=== PATIENT | female | born 1955 | race Caucasian/White ===

== ENCOUNTER 2017-04-20 21:21 | Observation (INO) | payer MEDICARE, MEDICAID ==
[2017-04-20 21:59] LABS: #Basophils 0.1 thou/uL (0.0-0.2); #Eosinphils 0.4 thou/uL (0.0-0.7); #Lymphocytes 2.6 thou/uL (1.20-3.40); #Monocytes 0.4 thou/uL (0.11-0.59); #Neutrophils 2.6 thou/uL (1.40-6.50); %Basophils 1.2 % (0.0-1.0); %Lymphocytes 42.9 % (21.0-51.0); %Monocytes 6.9 % (0.0-10.0); %Neutrophils 42.9 % (42.0-75.0); Hemoglobin 11.6 g/dL (12.0-16.0); Mean Corpuscular HGB CONC 33.8 g/dL (32.0-36.0); Mean Corpuscular Hemoglobin 30.7 pg (27.0-31.0); Mean Corpuscular Volume 90.7 fl (81.0-99.0); Mean Platelet Volume 7.2 fL (7.4-10.4); Platelet Count 228 thou/uL (130-400); RBC Distribution Width 12.7 % (11.5-14.5); Red Blood Cell (RBC) Count 3.77 mill/uL (4.20-5.40)
[2017-04-20] MEDS ORDERED: Acetaminophen/Codeine 30-300mg Tablet ONE (22:12)
[2017-04-20 22:20] LABS: ALT (SGPT) 8 U/L (8-55); AST (SGOT) 12 U/L (5-34); Albumin 3.4 g/dL (3.5-5.0); Alkaline Phosphatase 96 U/L (40-150); Anion Gap 12 mmol/L (10-20); BUN (Urea Nitrogen) 10 mg/dL (9.8-20.1); Bilirubin, Total 0.4 mg/dL (0.2-1.2); Calc. Creatinine Clearance 0 mL/min (70-130); Calcium 8.9 mg/dL (7.8-10.44); Carbon Dioxide 25 mmol/L (22-29); Chloride 108 mmol/L (98-107); Estimated GFR-MDRD 59; Globulin 2.6 g/dL (2.4-3.5); Glucose 99 mg/dL (70-105); Potassium 3.6 mmol/L (3.5-5.1); Sodium 141 mmol/L (136-145)
[2017-04-20 22:24] LABS: CKMB 0.7 ng/mL (0-6.6); Troponin I 0.012 ng/mL (< 0.028)
--- NOTE | 2017-04-20 22:24 | RAD ---
SINGLE VIEW OF THE CHEST: Comparison: 08-08-16 History: Chest pain. Shortness of breath. FINDINGS: Single view of the chest shows a normal sized cardiomediastinal silhouette. The patient is status pos t sternotomy. There is no evidence of consolidation, mass, or pleural effusion. IMPRESSION: No evidence of acute cardiopulmonary disease. POS: [facility]
[2017-04-20] MEDS ORDERED: fentaNYL 50 mcg/hour Patch TD SCH (22:32)
[2017-04-20] MEDS ORDERED: Acetaminophen 325 MG TAB PO PRN (22:32)
[2017-04-20] MEDS ORDERED: Guaifenesin DM 100-10/5 ML UDCUP PO PRN (22:32)
[2017-04-20] MEDS ORDERED: Zolpidem Tartrate 5 MG TAB PO PRN ×2 (22:52→23:00)
[2017-04-20 23:13] VITALS: BMI 30.4
--- NOTE | 2017-04-21 00:33 | HP ---
REASON FOR ADMISSION: Chest pain. HISTORY OF PRESENTING ILLNESS: The patient gives history of developing retrosternal chest pain while she was watching TV around 2:00 p.m. This lasted for a few minutes and got resolved. She had anoth er episode where the chest pain was 8/10 and had radiation to the neck and left upper extremity. Thi s was associated with shortness of breath. She normally has dry cough due to her smoking habit. The patient does not take flu shots. She has had prior cardiac catheterization done in [address] Babs sharma, which showed patent grafts from her prior CABG. No complaints of fever as such. PAST MEDICAL AND SURGICAL HISTORY: History of CABG done in 2011. Last cardiac catheterization was i [address] Willis, which showed patent grafts. History of CHF with her ejection fraction is imp roving to 60% per patient on the recent echo in Dr. Willis's office. COPD with ongoing smoking, ba ck surgery, hypertension, anxiety, depression, hysterectomy, left eye surgery, right elbow surgery, b ack surgeries, left corneal transplant, tonsillectomy, cholecystectomy, dyslipidemia. CURRENT MEDICATIONS: The patient is on Crestor, Nexium 40 mg p.o. daily, clonazepam 0.5 mg p.o. twic e daily p.r.n. for anxiety, Plavix 75 mg p.o. daily, aspirin 81 mg p.o. daily, Zoloft 150 mg p.o. shanta ly, Coreg 6.25 mg p.o. twice daily, fentanyl patch 50 mcg transdermal q.72 hourly, Tylenol #3 p.r.n., Ambien p.r.n., Advair, Spiriva, ProAir and DuoNeb for her COPD. ALLERGIES: DARVOCET, PENICILLIN, SULFA, AND ULTRAM. PERSONAL HISTORY: Smokes one pack a day, does not abuse alcohol or drugs. FAMILY HISTORY: Mother at the age of 68 years, she has had history of coronary artery disease, COPD, and leg amputation. Father of lung cancer at the age of 75 years. CODE STATUS: Full. Power of claim attorney is her older son, Mr. Villatoro: REVIEW OF SYSTEMS: The following complete review of systems was negative, unless otherwise mentioned in the HPI or below: Constitutional: Weight loss or gain, ability to conduct usual activities. Skin: Rash, itching. Eyes: Double vision, pain. ENT/Mouth: Nose bleeding, neck stiffness, pain, tenderness. Cardiovascular: Palpitations, dyspnea on exertion, orthopnea. Respiratory: Shortness of breath, wheezing, cough, hemoptysis, fever or night sweats. Gastrointestinal: Poor appetite, abdominal pain, heartburn, nausea, vomiting, constipation, or diarr hea. Genitourinary: Urgency, frequency, dysuria, nocturia. Musculoskeletal: Pain, swelling. Neurologic/Psychiatric: Anxiety, depression. Allergy/Immunologic: Skin rash, bleeding tendency. PHYSICAL EXAMINATION: GENERAL: The patient is a 61-year-old female, who is currently not in any acute distress. VITAL SIGNS: Blood pressure 116/76, pulse 76 per minute, respiratory rate 18 per minute, temperature 97.7 degrees Fahrenheit, saturating 98% on room air. NECK: Supple, no elevated JVD. HEENT: Eyes: Extraocular muscles intact. Pupils reacting to light. Oral cavity mucous membranes a re moist. No exudates or congestion. CARDIOVASCULAR: S1, S2 heard. Regular rhythm. RESPIRATORY: Air entry 1+ bilateral. Scattered rhonchi plus bilateral. ABDOMEN: Soft, bowel sounds heard. No tenderness, rigidity or guarding. EXTREMITIES: There is mild peripheral edema, no calf tenderness. VASCULAR SYSTEM: Peripheral pulses is 1+ bilateral. No ischemic ulcerations or gangrene. CENTRAL NERVOUS SYSTEM: No gross focal deficits seen. Patient is alert, awake, oriented well. PSYCHIATRIC: The patient's mood is euthymic. No hallucinations or delusions. LABORATORY AND X-RAY FINDINGS: White count 6, H&H 11 and 34, platelet count 228 with 42% neutrophils , MCV is 90. D-dimer is less than 0.27. BUN 10, creatinine 0.9, glucose 99. Liver enzymes within n ormal limits. First set of cardiac enzymes are negative. Albumin is 3.4. Chest x-ray done shows no acute cardiopulmonary abnormalities. EKG done shows sinus bradycardia at 59 beats per minute, nonsp ecific ST-T wave changes were seen. CLINICAL IMPRESSION AND PLAN: The patient will be under observation on telemetry for chest pain, rul e out acute coronary syndrome with prior history of coronary artery disease and coronary artery bypas s grafting. Her last cardiac catheterization done in 2014, showed patent grafts. We will continue a ll her home medications including aspirin, Coreg, Plavix, Lasix, DuoNebs, Nexium, Lyrica, Zoloft as b efore. She will be placed empirically on Levaquin for mild chronic obstructive pulmonary disease exa cerbation. We will obtain a nuclear stress test in view of patient's typical chest pain, which got r esolved with nitroglycerin at home. The patient is noncompliant with her smoking. She says she is c ompliant with medications. We will continue to closely monitor her on telemetry.
[2017-04-21 01:09] LABS: Troponin I Less than 0.010 ng/mL (< 0.028)
[2017-04-21 03:44] VITALS: TEMP 97.6
[2017-04-21 04:11] LABS: #Basophils 0.1 thou/uL (0.0-0.2); #Eosinphils 0.3 thou/uL (0.0-0.7); #Lymphocytes 2.7 thou/uL (1.20-3.40); #Monocytes 0.4 thou/uL (0.11-0.59); #Neutrophils 2.2 thou/uL (1.40-6.50); %Basophils 1.2 % (0.0-1.0); %Eosinophils 5.4 % (0.0-10.0); %Lymphocytes 48.3 % (21.0-51.0); %Monocytes 6.4 % (0.0-10.0); %Neutrophils 38.8 % (42.0-75.0); Mean Corpuscular HGB CONC 34.1 g/dL (32.0-36.0); Mean Corpuscular Hemoglobin 30.9 pg (27.0-31.0); Mean Corpuscular Volume 90.5 fl (81.0-99.0); Platelet Count 206 thou/uL (130-400); RBC Distribution Width 12.4 % (11.5-14.5); Red Blood Cell (RBC) Count 3.57 mill/uL (4.20-5.40); White Blood Cell (WBC) Count 5.7 thou/uL (4.8-10.8)
[2017-04-21 04:32] LABS: Anion Gap 9 mmol/L (10-20); BUN (Urea Nitrogen) 11 mg/dL (9.8-20.1); Calc. Creatinine Clearance 82 mL/min (70-130); Calcium 8.8 mg/dL (7.8-10.44); Carbon Dioxide 27 mmol/L (22-29); Cardiac Risk 3.5 (Less than 4.5); Chloride 109 mmol/L (98-107); Cholesterol 156 mg/dl (< 200 Desired); Estimated GFR-MDRD 59; Glucose 101 mg/dL (70-105); HDL Cholesterol 45 mg/dL (>60 Neg Risk); LDL Cholesterol, Calculated 80 mg/dL; Potassium 3.5 mmol/L (3.5-5.1); Sodium 141 mmol/L (136-145); Triglycerides 155 mg/dL (Less than 150)
[2017-04-21 04:35] LABS: Troponin I Less than 0.010 ng/mL (< 0.028)
[2017-04-21] MEDS ORDERED: Potassium Chloride 10 MEQ TAB PO SCH (08:00)
[2017-04-21] MEDS ORDERED: Furosemide 20 MG TAB PO SCH (09:00)
[2017-04-21] MEDS ORDERED: Clopidogrel Bisulfate 75 MG TAB PO SCH (09:00)
[2017-04-21] MEDS ORDERED: Enoxaparin Sodium 40 MG/0.4 ML SYRINGE SC SCH (09:00)
[2017-04-21] MEDS ORDERED: Famotidine 20 MG TAB PO SCH (09:00)
[2017-04-21] MEDS ORDERED: Carvedilol 6.25 MG TAB PO SCH (09:00)
[2017-04-21] MEDS ORDERED: Spiriva 18 MCG CAP (Box of 5 Caps) INH SCH (09:00)
[2017-04-21] MEDS ORDERED: Pregabalin 50 MG CAP PO SCH (09:00)
[2017-04-21] MEDS ORDERED: FLU VACC QS2017-18 36 mo. & older 0.5 ML SYRINGE IM ONE (09:00)
[2017-04-21] MEDS: Acetaminophen/Codeine 30-300mg Tablet PO PRN ×2 (10:12→14:01)
[2017-04-21] MEDS ORDERED: Regadenoson 0.4 MG/5 ML SYRINGE ONE (12:31)
[2017-04-21 12:53] VITALS: BP 127/73
[2017-04-21] MEDS ORDERED: clonazePAM 0.5 MG TAB PO PRN (13:44)
--- NOTE | 2017-04-21 14:25 | NM ---
NUCLEAR MEDICINE CARDIAC PERFUSION EXAMINATION WITH EJECTION FRACTION: HISTORY: A 61-year-old female with chest pain. History of coronary artery disease. TECHNIQUE: A single-day nuclear medicine cardiac perfusion examination was performed. Rest images were obtained using 10.1 millicuries of technetium 99m sestamibi. Stress images were obtained using 33 millicurie s of technetium 99m sestamibi and Lexiscan. FINDINGS: Tomographic images show no fixed or reversible perfusion defects. Gated image show normal wall motio n with an ejection fraction of greater than 70%. EDV is 89 mL. LHR is 0.3. TID is 1.3. IMPRESSION: No evidence of ischemia. POS: [facility]
--- NOTE | 2017-04-21 20:02 | DIS ---
DATE OF ADMISSION: 04/20/2017 DATE OF DISCHARGE: 04/21/2017 PRIMARY CARE PHYSICIAN: Dr. Cecil Gaytan. DISCHARGE DIAGNOSIS: Chest pain. CONDITION OF PATIENT AT THE TIME OF DISCHARGE: Stable. HISTORY OF PRESENT ILLNESS: Ms. Shoemaker reports that chest pain is improved. She reports cough that is productive of whitish sputum. She denies any fevers or chills. PHYSICAL EXAMINATION: VITAL SIGNS: Stable. HEART: S1 and S2 are heard, regular. LUNGS: Clear to auscultation bilaterally. DISCHARGE MEDICATIONS: In addition to the home medications as dictated on history and physical note from 04/20/2017, she is being discharged home on levofloxacin 500 mg daily for 7 days and Medrol Dose manuel. HOSPITAL COURSE: Ms. Shoemaker is a pleasant 61-year-old lady who was admitted to [facility] on 04/20/2017 for chest pain. She had a normal D-dimer. She also had a nuclear stress test. At the time of this dictation, preliminary report indicates that the stress test was normal. She is being discharged home in a stable condition. She is advised to follow up with her primary ca re physician in 3 to 5 days and obtain final copy of the stress test. She has also been advised to s top smoking. Many thanks for allowing me to participate in your patient's care. Please feel free to contact me if any questions or concerns. DISCHARGE DESTINATION: Home.
--- NOTE | 2017-05-24 15:03 | EKG ---
Test Reason : Blood Pressure : / mmHG Vent. Rate : 059 BPM Atrial Rate : 059 BPM P-R Int : 178 ms QRS Dur : 086 ms QT Int : 444 ms P-R-T Axes : 056 073 061 degrees QTc Int : 439 ms Sinus bradycardia Nonspecific ST abnormality Abnormal ECG Confirmed by DEYANIRA DAHL ([id number]), story editor LOGAN GILLETTE ([id number]) on 05/24/2017 3:02:24 PM Referred By: Confirmed By:DEYANIRA DAHL
--- NOTE | 2017-05-26 11:25 | STRESS ---
Acquisition Time: 2017-04-21 10:57:56 Total Exercise Time: 00:01:00 Test Indications: CHEST PAIN Medications: Protocol: LEXISCAN Max HR: 091 BPM 56% of Pred: 161 BPM Max BP: 128/064 mmHG Max Work Load: 1.0 METS RESTING ECG: NORMAL SINUS RHYTHM AT 60 BPM WITH AN INCOMPLETE RIGHT BUNDLE BRANCH BLOCK AND ANTERIOR T-WAVE INVERSION. SYMPTOMS: SOB NORMAL BP RESPONSE ECTOPY: NONE ECG STRESS: NO SIGNIFICANT CHANGES INTERPRETATION: AWAIT NUCLEAR IMAGES FOR DEFINITIVE DIAGNOSIS Confirmed by YAN SNIDER ([id number]), videotape editor HAKAN GARCIA ([id number]) on 05/26/2017 11:24:43 AM Referred By: MD Bre FRY Confirmed By:YAN SNIDER
== END 2017-04-21 15:00 | disposition home or self-care (01) ==
LOC: ERS 21:21 → 2SW 21:59
PROVIDERS: ADMIT Internal Medicine; ATTEND Internal Medicine
DX: R07.2 Precordial pain (principal); I25.10 Atherosclerotic heart disease of native coronary artery without angina pectoris; I11.0 Hypertensive heart disease with heart failure; I50.9 Heart failure, unspecified; J44.9 Chronic obstructive pulmonary disease, unspecified; E78.5 Hyperlipidemia, unspecified; F41.9 Anxiety disorder, unspecified; F32.9 Major depressive disorder, single episode, unspecified; F17.210 Nicotine dependence, cigarettes, uncomplicated; Z88.0 Allergy status to penicillin; Z88.2 Allergy status to sulfonamides; Z88.5 Allergy status to narcotic agent; Z88.8 Allergy status to other drugs, medicaments and biological substances; Z79.82 Long term (current) use of aspirin; Z79.899 Other long term (current) drug therapy; Z94.7 Corneal transplant status; Z95.1 Presence of aortocoronary bypass graft; Z90.49 Acquired absence of other specified parts of digestive tract; Z90.710 Acquired absence of both cervix and uterus; Z98.890 Other specified postprocedural states
CPT/HCPCS: 71045; 78452; 80048; 80053; 80061; 82553; 83880; 84484 ×3; 85025 ×2; 85379; 93005; 93017; 93306; 94640 ×2; 99285; A9500; G0008; G0378 ×2; Q2036; 36415; 90471; 90682; J1650; J2785; J7620

== ENCOUNTER 2018-01-30 05:05 | Inpatient (IN) | payer MEDICARE, MEDICAID ==
[2018-01-30 05:36] LABS: #Basophils 0.1 thou/uL (0.0-0.2); #Eosinphils 0.3 thou/uL (0.0-0.7); #Lymphocytes 2.5 thou/uL (1.20-3.40); #Monocytes 0.6 thou/uL (0.11-0.59); #Neutrophils 4.9 thou/uL (1.40-6.50); %Basophils 1.4 % (0.0-1.0); %Eosinophils 3.9 % (0.0-10.0); %Lymphocytes 29.4 % (21.0-51.0); %Monocytes 7.6 % (0.0-10.0); %Neutrophils 57.7 % (42.0-75.0); Hemoglobin 11.8 g/dL (12.0-16.0); Mean Corpuscular HGB CONC 32.4 g/dL (32.0-36.0); Mean Corpuscular Volume 92.5 fL (78.0-98.0); Mean Platelet Volume 7.8 fL (7.4-10.4); Platelet Count 230 thou/uL (130-400); RBC Distribution Width 12.9 % (11.5-14.5); Red Blood Cell (RBC) Count 3.95 mill/uL (4.20-5.40); White Blood Cell (WBC) Count 8.4 thou/uL (4.8-10.8)
[2018-01-30 05:40] LABS: INR-International Normal Ratio 1.2; Prothrombin Time 15.2 SEC (12.0-14.7)
[2018-01-30 05:48] LABS: ALT (SGPT) 12 U/L (8-55); AST (SGOT) 57 U/L (5-34); Albumin 3.4 g/dL (3.5-5.0); Alkaline Phosphatase 83 U/L (40-150); Anion Gap 13 mmol/L (10-20); BUN (Urea Nitrogen) 13 mg/dL (9.8-20.1); Bilirubin, Total 0.4 mg/dL (0.2-1.2); Calc. Creatinine Clearance 0 mL/min (70-130); Calcium 8.7 mg/dL (7.8-10.44); Carbon Dioxide 23 mmol/L (22-29); Chloride 106 mmol/L (98-107); Estimated GFR-MDRD 54; Globulin 2.7 g/dL (2.4-3.5); Glucose 115 mg/dL (70-105); Lipase 95 U/L (8-78); Potassium 3.5 mmol/L (3.5-5.1); Protein, Total 6.1 g/dL (6.0-8.3); Sodium 138 mmol/L (136-145)
[2018-01-30 06:04] LABS: CKMB 98.8 ng/mL (0-6.6); Troponin I 5.945 ng/mL (< 0.028)
[2018-01-30 06:06] LABS: PTT Greater than 250.0 SEC (22.9-36.1)
[2018-01-30] MEDS ORDERED: traMADol HCl 50 MG TAB PO PRN (06:19)
[2018-01-30] MEDS ORDERED: Nitroglycerin 0.4 MG TAB (25 Tab Bottle) SL PRN (06:19)
[2018-01-30] MEDS ORDERED: Sodium Chloride 0.9% 200 ML IV SCH (06:30)
--- NOTE | 2018-01-30 07:21 | HP ---
DATE OF ADMISSION: 01/30/2018. CHIEF COMPLIANT: Chest pain. PRIMARY LATHE SET UP PERSON: Jay Willis M.D. HISTORY OF PRESENT ILLNESS: Ms. Shoemaker is a pleasant 62-year-old white female who comes to the hosp ital for chest pain. She started having chest pain about 1:00 a.m. She continued to have pain. She woke up again from pain and at about 5:30 a.m., called EMS who came and found inferior ST changes, s o she was brought in and a STEMI alert was activated. On my evaluation, she continued to have chest pain and it was subsiding though at the moment and she had some inferior ST elevations, so she was ta cheryl to the catheterization lab for further evaluation. She has had a history of coronary artery bypa ss grafting. In 2012, she had a CONROY to the LAD, a Y graft to an IR and OM and the Y graft to an RPD A and RPL. Imaging today showed her jump graft on the right to the right posterior descending artery is occluded and her troponins already at 5 suggestive that this probably happened around 1:00 a.m. She is currently chest pain free. She continues to smoke. She fell and broke her right arm yesterda y. PAST MEDICAL HISTORY: 1. CABG in [address] Greenfield. 2. Last catheterization in [address] Willis that showed patent grafts. 3. History of reduced EF at 20%, improved to 60% about a year later. 4. Chronic obstructive pulmonary disease. 5. Back surgery. 6. Hypertension. 7. Anxiety and depression. PAST SURGICAL HISTORY: 1. Back surgery. 2. Left eye surgery. 3. Right elbow surgery. 4. Corneal transplant. 5. Tonsillectomy. 6. Cholecystectomy. 7. Hyperlipidemia. OUTPATIENT MEDICATIONS: 1. Crestor 40 mg a day. 2. Nexium 40 mg a day. 3. Clonazepam. 4. Plavix 75 mg a day. 5. Aspirin 81 a day. 6. Zoloft 150 at bedtime. 7. Coreg 6.25 b.i.d. 8. Fentanyl patch. 9. Tylenol #3. 10. Ambien. 11. Advair. 12. Spiriva. 13. ProAir. 14. DuoNeb. ALLERGIES: DARVOCET, PENICILLIN, SULFA, and ULTRAM. SOCIAL HISTORY: Smokes a pack a day. No drugs or alcohol. FAMILY HISTORY: Mother at age 68 of coronary artery disease. Father had lung cancer at age 75. REVIEW OF SYSTEMS: A 12-point review of systems was done and is all negative unless stated in the hi story of present illness. PHYSICAL EXAMINATION: VITAL SIGNS: Temperature 98.2, blood pressure 128/62, heart rate of 80, satting 98% on 2 liters nasa l cannula. GENERAL: Awake, alert, oriented x3, in no distress. HEENT: Normocephalic, atraumatic. NECK: Supple. LUNGS: Have reduced breath sounds. CARDIOVASCULAR: S1, S2, no S3, S4, no murmurs. ABDOMEN: Soft, positive bowel sounds. EXTREMITIES: No edema. SKIN: Warm and dry. LABORATORY DATA: Laboratory work is pending at the time of this dictation. IMAGING: EKG was reviewed. ASSESSMENT AND PLAN: 1. Acute inferior ST elevation myocardial infarction. 2. Occluded jump graft to the PDL. 3. Ongoing tobacco abuse. 4. Chronic obstructive pulmonary disease without exacerbation. PLAN: 1. Medical therapy. We will plan on full anticoagulation for 48 hours. We will start the first dos e of Lovenox about 2 hours after hemostasis was achieved. She had an Angio-Seal placed. 2. Continue aspirin, Plavix, statin, beta chase, KATHRYN inhibitor. 3. We will restart most of her home medications in the next day or two. 4. She is currently chest pain free and EF was 60% in LV gram. We will get an echocardiogram. 5. We will trend troponins. 6. Full code. 7. Proton pump inhibitor for stress ulcer prophylaxis. 8. We will follow.
--- NOTE | 2018-01-30 07:54 | RAD ---
ONE VIEW CHEST: COMPARISON: 01/30/2018. HISTORY: Not provided. FINDINGS: Portable upright chest demonstrates sternotomy wires. Normal cardiac silhouette. The pulmonary vess els are prominent. The lungs are hyperinflated with chronic changes. No masses or consolidation. N o pneumothorax or osseous abnormalities. IMPRESSION: No acute cardiopulmonary process. POS: [facility]
--- NOTE | 2018-01-30 08:26 | CON ---
DATE OF CONSULTATION: 01/30/2018 HISTORY: Gloria Shoemaker is a 62-year-old female with known history of COPD, who apparently fell and injured her right arm Friday. Yesterday she started having some chest pain, radiation to the left arm. She had bypass surgery many years ago. History of smoking up to a pack a day, also was compla ining of difficulty breathing. She was given aspirin, nitroglycerin, and heparin. They brought her to the ER where she underwent a cardiac catheterization by Cardiology. Please review his note. This morning she says she is feeling better. Denies any chest pain or diffi culty breathing. Denies any cough. PAST MEDICAL HISTORY: Extensively outlined, pertinent for tobacco abuse, a pack a day, unable to luc t. She is on disability. She has a diagnosis of COPD, coronary artery disease, arthritis, pain. PAST SURGICAL HISTORY: Gallbladder surgery, hysterectomy, tonsillectomy, corneal transplant, bypass surgery in 2012. A tubal ligation. MEDICATIONS: From home includes low flow O2, nebulizers, Spiriva, Advair twice a day, Lasix 20, Plav ix 75, Coreg 6.25 twice a day, Klonopin 0.5 b.i.d. She is presently on Plavix and Lovenox. ALLERGIES: Multiple, PENICILLIN, SULFA, TRAMADOL. REVIEW OF SYSTEMS: Otherwise, 10-point negative. SOCIAL HISTORY: She is disabled and continues to smoke. She says she is unable to do so from not sm oking. PHYSICAL EXAMINATION: VITAL SIGNS: Sats are 96 on 2 liters, respiration 16, temperature 97, blood pressure is 95/49. CHEST: Chest revealed decreased breath sounds, no wheezing. CARDIAC: Normal S1-S2. No gallops. ABDOMEN: Soft. No masses. LABORATORY AND X-RAY FINDINGS: Chest x-ray shows no acute infiltrates. She has a fracture of the ri t distal radius and ulna. IMPRESSION: 1. Coronary artery disease, status post bypass. 2. Ongoing tobacco. 3. Chronic obstructive pulmonary disease, ongoing tobacco abuse. 4. Fracture, right wrist. PLAN: I started home medication. Supportive care and PT. Disposition as per Cardiology. This is a consultation note, 70 minutes, 50% spent in direct patient care.
[2018-01-30] MEDS: Acetaminophen/Codeine 30-300mg Tablet PO PRN ×3 (08:50→18:38)
[2018-01-30] MEDS: Aspirin 81 mg Enteric Coated Tablet PO SCH (08:53)
[2018-01-30] MEDS: Clopidogrel Bisulfate 75 MG TAB PO SCH (08:53)
[2018-01-30] MEDS: Carvedilol 6.25 MG TAB PO SCH ×2 (08:56→17:00)
[2018-01-30] MEDS: Enoxaparin Sodium 80 MG/0.8 ML SYRINGE SC SCH ×2 (09:05→21:34)
[2018-01-30] MEDS: Lisinopril 2.5 MG TAB PO SCH (09:06)
[2018-01-30] MEDS ORDERED: Iopamidol 370 76% 100 ML VIAL ONE (10:58)
[2018-01-30 14:49] VITALS: BMI 23.7
--- NOTE | 2018-01-30 18:19 | CON ---
DATE OF CONSULTATION: 01/30/2018 CONSULTING PHYSICIANS: Jay Willis MD/Orion Thomas MD HISTORY OF PRESENT ILLNESS: Ms. Shoemaker is a 62-year-old female who has a significant medical history, who currently having an ST-elevated myocardial infarction. The patient is currently seen in the ICU. She has history of coronary artery bypass. We were consulted due to the patient fell on the and underwent a closed reduction in [place] on her distal radius fracture. She is now resting currently in the ICU with a sugar-tong splint in place. Her pain is controlled. PAST MEDICAL HISTORY: Coronary artery bypass in 2012, decreased ejection fraction, chronic obstructive pulmonary disease, history of low back surgery, right elbow surgery no otherwise specified, hypertension, anxiety, depression, hyperlipidemia. PAST SURGICAL HISTORY: Lumbar spine surgery, multiple eye surgeries, right elbow surgery, corneal transplant, tonsillectomy, cholecystectomy. OUTPATIENT MEDICATIONS: Crestor, Nexium, clonazepam, Plavix, aspirin, Zoloft, Coreg, fentanyl, Tylenol, Ambien, Advair, Spiriva, ProNeb, DuoNeb. ALLERGIES: DARVOCET, PENICILLIN, SULFA, and ULTRAM. SOCIAL HISTORY: The patient smokes a pack a day. Denies alcohol or drug use. The patient lives near the [facility]. She is currently disabled. REVIEW OF SYSTEMS: Noncontributory. PHYSICAL EXAMINATION: VITAL SIGNS: Today, blood pressure 96/40, respiratory rate 15, heart rate in the 60s, O2 sats have been in the 90s on oxygen and neb treatments. GENERAL: Alert and oriented female in no acute distress, resting comfortably in bed. EXTREMITIES: Right upper extremity sugar-tong splint in place. There is significant swelling. She got motor and sensory intact to AIN, PIN, median, ulnar, radial distribution, 2+ radial and DP pulses. Soft compartments. Small effusion. IMAGING: Radiographs from 01/28/2018 showed a Colles fracture of distal radius without articular segment dorsal angulation with a displaced ulnar styloid. IMPRESSION: 1. Dorsal angulated extraarticular Colles distal radius fracture. 2. Ulnar styloid fracture. 3. ST-elevated myocardial infarction. 4. Multiple medical problems. ASSESSMENT AND PLAN: The patient was switched from a sugar-tong because it was causing some skin irritation in her fingers into a short-arm volar splint to help with access issues as well as blood pressure cuff placement. I discussed with the patient that she is not a good surgical candidate given her multiple medical history, her recent STEMI which had increased risk. Therefore, we will plan to treat her conservatively. The patient is disabled and uses just her right arm for minimal work. I discussed with her the risks and benefits of conservative management. The patient does not desire to have surgery per her report at this time anyway. Therefore, we will treat electively for conservative management. She will stay in a splint for about 7-10 days and we will transition her to a cast. I will check on the patient in the morning to see if she is comfortable and had no acute complaints. CHRISTIAN
[2018-01-30] MEDS ORDERED: Sodium Chloride 0.9% 500 ML IV SCH (19:00)
[2018-01-30] MEDS ORDERED: Sodium Chloride 0.9% 1,000 ML IV SCH (19:00)
[2018-01-30] MEDS: Mometasone/Formoterol 120 PUFF INHALER INH SCH (19:08)
[2018-01-30] MEDS ORDERED: PROVENTIL INHALER 6.7 G (200 INHALATIONS) INH PRN (20:40)
[2018-01-30] MEDS ORDERED: clonazePAM 0.5 MG TAB PO PRN (20:41)
[2018-01-30] MEDS ORDERED: fentaNYL 50 mcg/hour Patch TD SCH (20:45)
[2018-01-30] MEDS ORDERED: tiZANidine HCl 4 MG TAB PO PRN (20:47)
[2018-01-30] MEDS ORDERED: Ondansetron ODT 4 MG TAB PO PRN (20:50)
[2018-01-30] MEDS ORDERED: Rosuvastatin 20 MG TAB PO SCH (21:00)
[2018-01-30] MEDS: Pregabalin 50 MG CAP PO SCH (21:38)
[2018-01-30] MEDS: Rosuvastatin 20 MG TAB PO SCH (21:39)
[2018-01-30] MEDS: Zolpidem Tartrate 5 MG TAB PO PRN (21:39)
[2018-01-31] MEDS ORDERED: Mometasone/Formoterol 120 PUFF INHALER INH SCH (06:30)
[2018-01-31] MEDS: Lisinopril 2.5 MG TAB PO SCH (08:35)
[2018-01-31] MEDS ORDERED: Furosemide 20 MG TAB PO SCH (09:00)
[2018-01-31] MEDS ORDERED: Aspirin 81 mg Enteric Coated Tablet PO SCH (09:00)
[2018-01-31] MEDS ORDERED: Clopidogrel Bisulfate 75 MG TAB PO SCH (09:00)
[2018-01-31] MEDS: Enoxaparin Sodium 80 MG/0.8 ML SYRINGE SC SCH ×2 (09:10→21:39)
[2018-01-31] MEDS: Pregabalin 50 MG CAP PO SCH ×3 (09:11→21:41)
[2018-01-31] MEDS: Aspirin 81 mg Enteric Coated Tablet PO SCH (09:12)
[2018-01-31] MEDS: Clopidogrel Bisulfate 75 MG TAB PO SCH (09:12)
[2018-01-31] MEDS: Mometasone/Formoterol 120 PUFF INHALER INH SCH ×2 (09:41→19:33)
--- NOTE | 2018-01-31 09:57 | PRG ---
DATE OF SERVICE: 01/31/2018 SUBJECTIVE: Ms. Shoemaker is sitting up in bed. OBJECTIVE: VITAL SIGNS: Her blood pressure is in the mid 90s systolic and at night when she sleeps, in the 80s. She has no chest pain or shortness of breath. LUNGS: She has some inspiratory wheezing and rhonchi. CARDIAC: Normal S1, normal S2. ABDOMEN: Soft, nontender. EXTREMITIES: There is no significant edema. SKIN: Warm and dry. ASSESSMENT: 1. Status post myocardial infarction due to graft occlusion, medical therapy being the only option. 2. Left ventricular end diastolic pressure was 18 at the time of cardiac catheterization with ejecti on fraction of 60%. 3. Blood pressure on the low side. Had to stop Coreg last night. Lisinopril on hold as well. PLAN: 1. Hopefully, resume lisinopril tomorrow if blood pressure improves. I think she is on aspirin and Plavix. 2. Okay to move to telemetry.
[2018-01-31] MEDS: Acetaminophen/Codeine 30-300mg Tablet PO PRN ×2 (12:02→21:46)
--- NOTE | 2018-01-31 12:56 | CON ---
DATE OF CONSULTATION: 01/31/2018 HISTORY OF PRESENT ILLNESS: Ms. Shoemaker is a 62-year-old female with a STEMI currently in ICU. The patient had a right distal radius fracture 2 days before her MRI. She is resting comfortably in bed. Otherwise, the patient is without acute complaints. OBJECTIVE: VITAL SIGNS: Heart rate 70, blood pressure 80s and 90s over 50s, respiratory rate 17, sats 97%. GENERAL: A well-developed female, in no acute distress, resting comfortably in bed. EXTREMITIES: distal swelling in the fingers. The patient has sensation intact distally. She has got a volar splint, clean, dry, and intact. She has good brisk cap refill. IMPRESSION: 1. Right distal radius fracture, extraarticular. 2. ST elevated myocardial infarction. ASSESSMENT AND PLAN: The patient will remain in a volar splint for 5-7 days. I will see her back in clinic at which time, we will transition her to a cast. She is not a surgical candidate given her history of a recent heart attack. The patient will be perfectly followed in-house with any questions. I will have OT work with her to work on range of motion to help with swelling in her fingers. CHRISTIAN
--- NOTE | 2018-01-31 17:08 | PRG ---
DATE OF SERVICE: 01/31/2018 SUBJECTIVE: This morning, she is awake, alert, responsive, less pain, no shortness of breath. OBJECTIVE: VITAL SIGNS: Sats are 90% on 2 liters, respiratory rate , temperature 99, blood pressure is low 90/59. CHEST: Decreased breath sounds, no wheezing. CARDIAC: Normal S1 and S2. No gallops. ABDOMEN: Soft, no masses. IMPRESSION: 1. Chronic obstructive pulmonary disease. 2. Tobacco abuse. 3. Coronary artery disease. 4. Status post right distal fracture. PLAN: Surgery next week. Pulmonary-conde, continue neb treatment, Dulera, supportive care. Refrain from smoking.
[2018-01-31] MEDS: Rosuvastatin 20 MG TAB PO SCH (21:41)
[2018-02-01] MEDS: Acetaminophen/Codeine 30-300mg Tablet PO PRN ×3 (04:41→16:57)
[2018-02-01 05:07] LABS: #Basophils 0.1 thou/uL (0.0-0.2); #Eosinphils 0.1 thou/uL (0.0-0.7); #Lymphocytes 2.3 thou/uL (1.20-3.40); #Monocytes 0.6 thou/uL (0.11-0.59); %Basophils 0.8 % (0.0-1.0); %Eosinophils 1.2 % (0.0-10.0); %Lymphocytes 28.7 % (21.0-51.0); %Monocytes 6.9 % (0.0-10.0); %Neutrophils 62.3 % (42.0-75.0); Hemoglobin 10.5 g/dL (12.0-16.0); Mean Corpuscular HGB CONC 32.7 g/dL (32.0-36.0); Mean Corpuscular Volume 91.6 fL (78.0-98.0); Mean Platelet Volume 8.1 fL (7.4-10.4); Platelet Count 183 thou/uL (130-400); RBC Distribution Width 12.9 % (11.5-14.5); Red Blood Cell (RBC) Count 3.51 mill/uL (4.20-5.40)
[2018-02-01] MEDS: Enoxaparin Sodium 80 MG/0.8 ML SYRINGE SC SCH ×2 (08:21→21:32)
[2018-02-01] MEDS: Clopidogrel Bisulfate 75 MG TAB PO SCH (08:21)
[2018-02-01] MEDS: Aspirin 81 mg Enteric Coated Tablet PO SCH (08:21)
[2018-02-01] MEDS: Lisinopril 2.5 MG TAB PO SCH ×2 (08:23→08:27)
[2018-02-01] MEDS: Pregabalin 50 MG CAP PO SCH ×3 (08:23→21:35)
[2018-02-01] MEDS: Mometasone/Formoterol 120 PUFF INHALER INH SCH ×2 (09:03→19:24)
--- NOTE | 2018-02-01 10:52 | PRG ---
DATE OF SERVICE: 02/01/2018 SUBJECTIVE: Ms. Shoemaker is feeling better. She is getting up and around more. No complaints. PHYSICAL EXAMINATION: VITAL SIGNS: Her blood pressure 111/58, pulse 70. LUNGS: Clear. CARDIAC: Normal S1, normal S2. ABDOMEN: Soft, nontender. EXTREMITIES: No edema. ASSESSMENT: Status post myocardial infarction, best treated medically. PLAN: 1. The patient declined lisinopril, states that her kidney function deteriorated with that. Reviewi ng the chart, her creatinine did increase to 1.67 in 2017 that may have been associated with lisinopr il. Therefore, we will stop at this point. 2. She is on antiplatelet therapy. 3. Still on enoxaparin. 4. Probably can be released to home soon. Dr. Thomas resumes care tomorrow.
--- NOTE | 2018-02-01 12:52 | PRG ---
DATE OF SERVICE: 02/01/2018 SUBJECTIVE: This morning, she is doing well, less shortness of breath, coughing. OBJECTIVE: VITALS: Sats are 96 on 2 liters, respirations 16, temperature 98, blood pressure 90/62. CHEST: No wheezing. CARDIAC: Normal S1, S2. No gallops. ABDOMEN: No masses. IMPRESSION: 1. Status post cardiac catheterization, coronary artery disease. 2. Chronic obstructive pulmonary disease broken wrist. PLAN: Home after surgical intervention. We will follow .
[2018-02-01] MEDS: Rosuvastatin 20 MG TAB PO SCH (21:31)
[2018-02-02] MEDS: Acetaminophen/Codeine 30-300mg Tablet PO PRN ×2 (00:13→10:04)
[2018-02-02] MEDS: Zolpidem Tartrate 5 MG TAB PO PRN (02:28)
[2018-02-02] MEDS: Mometasone/Formoterol 120 PUFF INHALER INH SCH ×2 (07:00→19:43)
[2018-02-02] MEDS ORDERED: Sodium Chloride 0.9% 10 ML ONE (08:26)
--- NOTE | 2018-02-02 09:16 | PRG ---
DATE OF SERVICE: 02/02/2018 SUBJECTIVE: A 62-year-old female status post NE, status post fracture, right forearm. Awaiting inpu t from Surgery. She is still having difficulty breathing. OBJECTIVE: VITAL SIGNS: Sats are 97% on 2 liters, temperature 98, blood pressure 100/59. CHEST: Reveals decreased breath sounds without any wheezing. CARDIAC: Normal S1, S2, no gallops. ABDOMEN: Soft. IMPRESSION: Chronic obstructive pulmonary disease, tobacco abuse, coronary artery disease, fractured wrist. PLAN: Await surgical intervention. Pulmonary conde, continue neb treatments, supportive care.
[2018-02-02] MEDS: Aspirin 81 mg Enteric Coated Tablet PO SCH (09:57)
[2018-02-02] MEDS: Clopidogrel Bisulfate 75 MG TAB PO SCH (09:57)
[2018-02-02] MEDS: Pregabalin 50 MG CAP PO SCH ×2 (09:57→15:58)
[2018-02-02] MEDS: Enoxaparin Sodium 80 MG/0.8 ML SYRINGE SC SCH (10:06)
[2018-02-02 17:17] VITALS: BP 115/59; TEMP 96.7
--- NOTE | 2018-02-02 18:51 | DIS ---
DATE OF ADMISSION: 01/30/2018 DATE OF DISCHARGE: 02/02/2018 DISCHARGING PHYSICIAN: Orion Thomas M.D. PRIMARY DIAGNOSES: 1. Inferior ST elevation myocardial infarction. 2. Ongoing tobacco abuse. PROCEDURES PERFORMED: 1. Percutaneous coronary angiogram through the right femoral approach. 2. Vein graft study and CONROY study. 3. Echocardiogram. 4. Chest x-ray. CONSULTANTS: 1. Dr. Elizabeth for critical care evaluation. 2. Dr. Renard Weinberg for her arm fracture. SUMMARY: Ms. Shoemaker is a pleasant 62-year-old white female who came to the hospital with chest pain . She was diagnosed with inferior ST elevations and taken to the [facility] where she was f ound to have an occluded vein graft. This was left alone. This was flush occluded, and we could not tell where it was coming out of as it was a wide graft into a posterior lateral branch. She did wel l postoperatively. Her troponin did not increase, but her LV function remained normal with some infe rior hypokinesis. She was monitored on full anticoagulation for 48 hours, did very well. She had br oken her wrist just a few days before her admission for ST elevation CO, so Dr. Weinberg was consulted for evaluation of this and he elected to do medical therapy given there is a good likelihood of wris t healing well and she had a recent CO, so she would be at high risk for any surgical interventions. Otherwise, she is doing well. No more chest pain. Breathing is at baseline. OUTPATIENT MEDICATIONS: Unchanged from admission. FOLLOWUP APPOINTMENTS: 1. Dr. Willis in 2-4 weeks who is his primary digester operator helper. 2. With primary care doctor in 1 week. Over 30 minutes were spent bedside counseling the patient on discharge.
== END 2018-02-02 23:11 | disposition home or self-care (01) | DRG 281 ==
LOC: ERS 05:05 → 2NO 05:25 → CCL 05:46 → CCU 06:05 → 2NO 01-31 10:05
PROVIDERS: ADMIT Internal Medicine Cardiovascular Disease; ATTEND Internal Medicine Cardiovascular Disease
PROC: 4A023N7 Measurement of Cardiac Sampling and Pressure, Left Heart, Percutaneous Approach (ICD-10-PCS; principal; 2018-01-30)
PROC: B2111ZZ Fluoroscopy of Multiple Coronary Arteries using Low Osmolar Contrast (ICD-10-PCS; 2018-01-30)
PROC: B2151ZZ Fluoroscopy of Left Heart using Low Osmolar Contrast (ICD-10-PCS; 2018-01-30)
PROC: B2181ZZ Fluoroscopy of Left Internal Mammary Bypass Graft using Low Osmolar Contrast (ICD-10-PCS; 2018-01-30)
DX: I21.19 ST elevation (STEMI) myocardial infarction involving other coronary artery of inferior wall (principal); S52.531A Colles' fracture of right radius, initial encounter for closed fracture; F17.210 Nicotine dependence, cigarettes, uncomplicated; J44.9 Chronic obstructive pulmonary disease, unspecified; I25.10 Atherosclerotic heart disease of native coronary artery without angina pectoris; S62.101A Fracture of unspecified carpal bone, right wrist, initial encounter for closed fracture
CPT/HCPCS: 36415; 71045; 80053; 80306; 82553; 83690; 84484; 85025; 85610; 85730; 93005; 93306; 93459; 93567; 93798; 94640; C1760; C1769; G8987-GO-CJ; G8988-GO-CI; J1650; J7620; Q0162

== ENCOUNTER 2018-02-10 22:13 | Inpatient (IN) | payer MEDICARE, MEDICAID ==
[2018-02-10 23:46] LABS: CKMB 3.1 ng/mL (0-6.6)
[2018-02-10 23:50] LABS: Troponin I 1.008 ng/mL (< 0.028)
[2018-02-11] MEDS ORDERED: Furosemide 40 MG/4 ML VIAL ONE (01:28)
[2018-02-11 02:45] LABS: Troponin I 1.113 ng/mL (< 0.028)
[2018-02-11 05:08] LABS: Critical Call Chem Troponin I RESULT DECREASING; Troponin I 1.035 ng/mL (< 0.028)
[2018-02-11] MEDS ORDERED: Acetaminophen 325 MG TAB PO PRN (08:24)
[2018-02-11] MEDS ORDERED: Ondansetron PF 4 MG/2 ML Vial IVP PRN (08:24)
[2018-02-11] MEDS ORDERED: Calcium Carbonate 500 MG ChewTAB PO PRN (08:24)
[2018-02-11] MEDS ORDERED: Bisacodyl 5 MG TAB PO PRN (08:24)
[2018-02-11] MEDS ORDERED: Zolpidem Tartrate 5 MG TAB PO PRN (08:24)
[2018-02-11] MEDS ORDERED: Bisacodyl 10 MG SUPP PR PRN (08:24)
[2018-02-11] MEDS ORDERED: Senokot S 8.6-50 MG TAB PO PRN (08:24)
[2018-02-11] MEDS ORDERED: Lisinopril 2.5 MG TAB PO SCH (09:00)
[2018-02-11] MEDS ORDERED: Enoxaparin Sodium 80 MG/0.8 ML SYRINGE SC SCH (09:00)
[2018-02-11 09:02] LABS: Hemoglobin 10.6 g/dL (12.0-16.0); Mean Corpuscular HGB CONC 32.1 g/dL (32.0-36.0); Mean Corpuscular Hemoglobin 29.6 pg (27.0-31.0); Mean Corpuscular Volume 92.1 fL (78.0-98.0); Mean Platelet Volume 7.6 fL (7.4-10.4); Platelet Count 282 thou/uL (130-400); RBC Distribution Width 14.1 % (11.5-14.5); White Blood Cell (WBC) Count 7.1 thou/uL (4.8-10.8)
[2018-02-11 09:08] LABS: ALT (SGPT) 14 U/L (8-55); AST (SGOT) 18 U/L (5-34); Albumin 2.9 g/dL (3.5-5.0); Alkaline Phosphatase 151 U/L (40-150); Anion Gap 12 mmol/L (10-20); BUN (Urea Nitrogen) 11 mg/dL (9.8-20.1); Bilirubin, Total 0.7 mg/dL (0.2-1.2); Calc. Creatinine Clearance 0 mL/min (70-130); Calcium 8.2 mg/dL (7.8-10.44); Carbon Dioxide 29 mmol/L (22-29); Cardiac Risk 3.4 (Less than 4.5); Chloride 102 mmol/L (98-107); Cholesterol 98 mg/dl (< 200 Desired); Estimated GFR-MDRD 70; Globulin 3.3 g/dL (2.4-3.5); Glucose 94 mg/dL (70-105); HDL Cholesterol 29 mg/dL (>60 Neg Risk); LDL Cholesterol, Calculated 51 mg/dL; Magnesium 2.1 mg/dL (1.6-2.6); Protein, Total 6.2 g/dL (6.0-8.3); Sodium 140 mmol/L (136-145); Triglycerides 90 mg/dL (Less than 150); Uric Acid 7.3 mg/dL (2.6-6.0)
[2018-02-11 09:13] LABS: Potassium 2.8 mmol/L (3.5-5.1)
[2018-02-11] MEDS ORDERED: Potassium Chloride 20 MEQ TAB PO SCH (09:30)
[2018-02-11 09:41] LABS: Band 16 % (5-11); Lymphocytes 17 % (21-51); MDiff Complete? YES; Monocytes 11 % (0-10); Neutrophil 56 % (42-75); Polychromasia SLIGHT = 2-3 cells (100X) (0-2/hpf)
[2018-02-11] MEDS ORDERED: Ipratropium Bromide 2.5 ml Neb NEB PRN (10:44)
[2018-02-11] MEDS ORDERED: Potassium Chloride 20 MEQ TAB ONE (11:38)
[2018-02-11] MEDS ORDERED: HYDROcodone/Acetaminophen 5/325 mg Tablet ONE (12:19)
[2018-02-11] MEDS ORDERED: Enoxaparin Sodium 80 MG/0.8 ML SYRINGE ONE (12:23)
[2018-02-11] MEDS ORDERED: Furosemide 20 MG/2 ML VIAL ONE (12:23)
[2018-02-11] MEDS ORDERED: Famotidine 20 MG TAB ONE (12:24)
[2018-02-11] MEDS ORDERED: Aspirin 325 MG TAB ONE (12:24)
--- NOTE | 2018-02-11 13:26 | HP ---
PRIMARY CARE PHYSICIAN: Ceicl Gaytan MD. REASON FOR ADMISSION: COPD exacerbation, NSTEMI, acute on chronic diastolic congestive heart failure. HISTORY OF PRESENT ILLNESS: This is a 62-year-old female, who was recently admitted in our hospital on January 30, 2018. At that time, the patient had acute PA. The patient also had Colles' fracture of distal radius and ulna on the right side that was treated with a cast. Because of acute PA, the patient was not a candidate for any surgical treatment. During that admission, the patient had cardiac catheterization, which showed severe [place] coronary artery disease, but grafts were patent and recommended medical therapy. During that admission, [facility] also saw this patient. The patient was discharged from the hospital on February 02, 2018. The patient reports that after going home, she started feeling bad. She was having increasing shortness of breath, cough productive of yellowish sputum. She was also having lot of pain at the fracture site. She was having chest pain, which was radiating to back, associated with deep breathing, and coughing was making her pain worse. She was feeling more weak. She was also feeling dyspnea on exertion and edema of the leg. When she presented to emergency room, she had routine blood tests, which showed chest x-ray suggestive of emphysematous changes. Her troponin was still elevated. The patient denies any flu-like symptoms. She denies any recent travel or sick exposure, but she recently experienced upper respiratory infection. When I saw this patient at that time the patient was having gurgling sound in her throat and she was having lot of congestion. She appeared sick and very weak. REVIEW OF SYSTEMS: Please see my HPI for pertinent positive and negative. All other review of system reviewed and negative except as mentioned in the HPI. PAST MEDICAL HISTORY: COPD, tobacco abuse disorder, 3-vessel coronary artery disease with CABG, recent admission for NSTEMI, and chronic diastolic heart failure. PAST SURGICAL HISTORY: CABG x5 in 2012, low back surgery, left eye surgery, right elbow surgery, cholecystectomy, tonsillectomy, left corneal transplant, vein surgery in her left leg. PAST PSYCHIATRIC HISTORY: Anxiety and depression. SOCIAL HISTORY: The patient is smoking about 1 pack per day. She denies any alcohol abuse. She denies any other illicit drug abuse. She lives at home. ALLERGIES: DARVOCET, DEXTROMETHORPHAN, PENICILLIN, RANEXA, SULFA, TRAMADOL. CURRENT HOME MEDICATIONS: 1. Lyrica 100 mg daily. 2. Ambien 10 mg at bedtime. 3. Spiriva inhalation daily. 4. Coreg 6.25 mg twice daily. 5. Lasix 20 mg daily. 6. Tizanidine 4 mg three times daily p.r.n. 7. Aspirin 81 mg daily. 8. Duragesic patch daily. 9. Plavix 75 mg p.o. daily. 10. Crestor 40 mg p.o. daily. EMERGENCY ROOM COURSE: The patient was given Lasix 40 mg. FAMILY HISTORY: No family history of CAD, CVA or cancer. PHYSICAL EXAMINATION: VITAL SIGNS: On arrival, blood pressure 156/100, pulse 86, respiratory rate 18, temperature 98.1, saturation 96% on 2 L oxygen. Weight 72.1 kg. GENERAL: The patient currently appears sick, chronically ill. HEENT: Head, normocephalic and atraumatic. Eyes, pupils are round, reactive to light. Extraocular muscles intact. ENT, oropharynx within normal limits. Moist mucous membranes. No oral lesions. No pharyngeal erythema. No exudate. NECK: Supple. Slightly elevated JVD. No thyromegaly. No carotid bruit. No meningeal signs of irritation. No lymphadenopathy. LUNGS: Bilateral end expiratory wheezing with bilateral coarse rales. No accessory muscles of respiration in use. CARDIAC: S1 and S2, regular. Soft systolic murmur noted at parasternal. No gallop. No rub. ABDOMEN: Soft. Bowel sounds present. Nontender. Nondistended. No organomegaly. No mass. No suprapubic tenderness. BACK: Unremarkable. No CVA tenderness. EXTREMITIES: Upper extremity, right upper extremity in a splint. Right finger is warm and good capillary filling. Left upper extremity within normal limits. Lower extremity, bilateral pitting lower extremity edema. NEUROLOGIC: Nonfocal examination. She moves all 4 limbs. Speech normal. SKIN: No skin rash. HEMATOLOGIC: No lymphadenopathy. PSYCHIATRIC: Normal affect. SIGNIFICANT LABORATORY DATA: EKG showing normal sinus rhythm without any acute ischemic changes. security monitor is showing sinus rhythm. CBC; WBC 7.1, hemoglobin 10.6, platelets 286. D-dimer 0.792. BMP; sodium 140, potassium 2.8, chloride 102, carbon dioxide 29, BUN 11, creatinine 0.83, glucose 94, calcium 8.2, uric acid 7.3, magnesium 2.1. LFTs; AST 18, ALT 14, alkaline phosphatase 151, albumin 2.9. Lipid profile; LDL 51, TSH 0.94. Chest x-ray; COPD changes. Old medical record reviewed. ASSESSMENT AND PLAN/IMPRESSION: 1. Acute on chronic diastolic congestive heart failure. This patient had an echo in January 30, it showed diastolic dysfunction. She has dyspnea on exertion. She does have bilateral lower extremity edema. She has pulmonary hypertension. We will check BNP. The patient will be treated with Lasix 20 mg IV b.i.d. We will monitor input/output chart. We will start Coreg 6.25 mg b.i.d. and lisinopril 2.5 mg p.o. daily. 2. Chronic obstructive pulmonary disease exacerbation. The patient will be treated with Solu-Medrol 40 mg IV q.8 hours, Levaquin 750 mg IV daily, Mucinex 600 mg twice daily, Dulera 2 puffs inhalation b.i.d. We will monitor clinical response. 3. [id number] elevation myocardial infarction. The patient had significantly elevated troponin. The patient also had elevated troponin on January 30 and currently troponin is still increased. The patient also has left-sided chest pain which is pleuritic in nature. We will check D-dimer to rule out any thromboembolic disorder. If D-dimer is abnormal, then we will do CT angio chest. Cardiology will be consulted as well. The patient is on aspirin 325 mg p.o. daily, Lipitor 40 mg p.o. at bedtime along with Coreg 6.25 mg b.i.d. and lisinopril 2.5 mg p.o. daily. Plavix 40 mg p.o. daily will be added to optimize medical therapy. 4. Tobacco abuse disorder, smoking cessation counseling given. Healthy lifestyle measures discussed with the patient. 5. Hypokalemia. The patient will be given potassium replacement. Magnesium is normal. 6. Hyperuricemia. We will start allopurinol 100 mg p.o. daily. 7. Anemia, normocytic, normochromic. We will continue ferrous sulfate 325 mg p.o. daily. 8. Deep venous thrombosis prophylaxis. We will give her Lovenox 1 mg/kg subcu twice daily today. 9. GI prophylaxis, Pepcid 20 mg p.o. b.i.d. 10. Disposition plan based on clinical course. We are expecting the patient to stay in the hospital more than 2 midnights. During this admission, the patient will need PT/OT evaluation as well. 11. Code status, full code. The patient does not have any surrogate decision maker. 12. Plan of care discussed with the patient in detail. Job ID: [id number] MTDD
[2018-02-11] MEDS ORDERED: Nitroglycerin 2% Ointment 1 INCH/1 GM Packet TOP SCH (14:00)
--- NOTE | 2018-02-11 14:09 | CT ---
CT PULMONARY ANGIOGRAM WITH IV CONTRAST AND 3D POSTPROCESSING: Date: 02/11/18 HISTORY: Dyspnea, chest pain, elevated D-Dimer. FINDINGS: There is good contrast opacification of the pulmonary arterial vasculature without filling defects to suggest pulmonary embolism. The thoracic aorta is well opacified without aneurysm or dissection. No pleural or pericardial effusions are seen. Emphysematous changes are noted in the lung joyce bilater ally. There is a small, patchy area of consolidation in the left lung base. Chronic interstitial paulino ges in the lower lung joyce have worsened since 02/23/14. There are degenerative changes in the spin e. Mediastinal and hilar lymphadenopathy is noted. IMPRESSION: No CT evidence of pulmonary embolism. POS: C
[2018-02-11] MEDS ORDERED: Loperamide HCl 2 MG CAP ONE (16:04)
[2018-02-11] MEDS ORDERED: ISOVUE-370 76%-LOCM 1 ML ONE (16:45)
[2018-02-11] MEDS ORDERED: Enoxaparin Sodium 40 MG/0.4 ML SYRINGE SC SCH (18:45)
[2018-02-11] MEDS: Mometasone/Formoterol 120 PUFF INHALER INH SCH (18:47)
[2018-02-11] MEDS: Aspirin 325 MG TAB PO SCH (20:30)
[2018-02-11] MEDS: Furosemide 20 MG/2 ML VIAL SLOW IVP SCH (20:31)
[2018-02-11] MEDS: Carvedilol 6.25 MG TAB PO SCH (20:31)
[2018-02-11] MEDS: guaiFENesin ER 600 MG TAB PO SCH (20:31)
[2018-02-11] MEDS: Famotidine 20 MG TAB PO SCH ×2 (20:31)
[2018-02-11] MEDS: HYDROcodone/Acetaminophen 5/325 mg Tablet PO PRN (20:32)
[2018-02-11] MEDS: Atorvastatin Calcium 40 MG TAB PO SCH (20:32)
[2018-02-11] MEDS: guaiFENesin/Codeine Phosphate 200 mg/20 mg 10 ml UD Cup PO PRN (20:34)
[2018-02-11] MEDS: Loperamide HCl 2 MG CAP PO PRN (20:37)
[2018-02-12] MEDS: guaiFENesin/Codeine Phosphate 200 mg/20 mg 10 ml UD Cup PO PRN ×3 (01:33→21:07)
[2018-02-12] MEDS: Furosemide 20 MG/2 ML VIAL SLOW IVP SCH ×2 (05:51→14:10)
[2018-02-12] MEDS ORDERED: Spiriva 18 MCG CAP (Box of 5 Caps) INH SCH (07:00)
[2018-02-12] MEDS: Ondansetron ODT 4 MG TAB PO PRN (07:16)
[2018-02-12] MEDS: Mometasone/Formoterol 120 PUFF INHALER INH SCH ×2 (07:21→18:29)
[2018-02-12] MEDS: Clopidogrel Bisulfate 75 MG TAB PO SCH (08:11)
[2018-02-12] MEDS: guaiFENesin ER 600 MG TAB PO SCH ×2 (08:11→21:06)
[2018-02-12] MEDS: Famotidine 20 MG TAB PO SCH ×2 (08:11→21:06)
[2018-02-12] MEDS: Carvedilol 6.25 MG TAB PO SCH ×2 (08:11→16:57)
[2018-02-12] MEDS: Allopurinol 100 MG TAB PO SCH (08:11)
[2018-02-12] MEDS: Aspirin 325 MG TAB PO SCH (08:11)
[2018-02-12] MEDS: Ferrous Sulfate 325 MG TAB PO SCH (08:11)
[2018-02-12] MEDS: HYDROcodone/Acetaminophen 5/325 mg Tablet PO PRN ×2 (08:17→21:06)
[2018-02-12] MEDS ORDERED: Enoxaparin Sodium 40 MG/0.4 ML SYRINGE SC SCH (09:00)
--- NOTE | 2018-02-12 10:06 | PDOC.PN ---
- Subjective Encounter Start Date: 02/12/18 Encounter Start Time: 07:30 -: old records requested/rev pt feels better after treatment, less dyspnea,, has cough, very weak, less edema over leg Patient seen and examined. No overnight events - Objective Resuscitation Status - Order Detail: 02/11/18 08:24 Resuscitation Status Routine Resuscitation Status: FULL: Full Resuscitation MAR Reviewed: Yes Vital Signs & Weight: Vital Signs (12 hours) Temp Pulse Resp BP Pulse Ox 02/12/18 08:17 99 02/12/18 07:38 98.7 F 60 14 100/54 L 99 02/12/18 07:21 98 02/12/18 07:20 66 20 98 02/12/18 04:00 97.9 F 68 16 92/52 L 93 L Weight Weight 158 lb 11.725 oz Result Diagrams: 02/11/18 08:36 02/11/18 08:36 Radiology Reviewed by me: Yes (CTA negative for PE) EKG Reviewed by me: Yes (nsr) Phys Exam - Physical Examination Constitutional: NAD HEENT: PERRLA, moist MMs, sclera anicteric Neck: no JVD, supple Respiratory: wheezing present few basal rales Cardiovascular: RRR, no significant murmur, no rub Gastrointestinal: soft, non-tender, no distention, positive bowel sounds Musculoskeletal: pulses present, edema present Neurological: non-focal, normal sensation Lymphatic: no nodes Psychiatric: normal affect, A&O x 3 Skin: no rash, normal turgor Dx/Plan (1) Acute on chronic diastolic ACC/AHA stage C congestive heart failure Code(s): I50.33 - ACUTE ON CHRONIC DIASTOLIC (CONGESTIVE) HEART FAILURE Status : Acute Comment: continue lasix (2) COPD exacerbation Code(s): J44.1 - CHRONIC OBSTRUCTIVE PULMONARY DISEASE W (ACUTE) EXACERBATION Status: Acute Comment: currently on optimum medical therapy (3) Elevated troponin Code(s): R74.8 - ABNORMAL LEVELS OF OTHER SERUM ENZYMES Status: Acute Comment: demand ischemia (4) Hyperuricemia Code(s): E79.0 - HYPERURICEMIA W/O SIGNS OF INFLAM ARTHRIT AND TOPHACEOUS DIS Status: Acute Comment: on allopurinol (5) Hypokalemia Code(s): E87.6 - HYPOKALEMIA Status: Acute (6) Left lower lobe pneumonia Code(s): J18.1 - LOBAR PNEUMONIA, UNSPECIFIED ORGANISM Status: Acute Comment : on levaquin (7) Anemia, normocytic normochromic Code(s): D64.9 - ANEMIA, UNSPECIFIED Status: Chronic (8) CAD (coronary artery disease) Code(s): I25.10 - ATHSCL HEART DISEASE OF [place] CORONARY ARTERY W/O ANG PCTRS Status: Chronic Qualifiers: Coronary Disease-Associated Artery/Lesion type: bypass graft Associated angina: with unstable angina (9) Chronic pain Code(s): G89.29 - OTHER CHRONIC PAIN Status: Chronic (10) Colles' fracture of right radius Code(s): S52.531A - COLLES' FRACTURE OF RIGHT RADIUS, INIT FOR CLOS FX Status : Chronic (11) Hypertension Code(s): I10 - ESSENTIAL (PRIMARY) HYPERTENSION Status: Chronic Qualifiers: Hypertension type: essential hypertension Qualified Code(s): I10 - Essential (primary) hypertension (12) Moderate tricuspid regurgitation by prior echocardiogram Code(s): I07.1 - RHEUMATIC TRICUSPID INSUFFICIENCY Status: Chronic (13) Pulmonary hypertension Code(s): I27.20 - PULMONARY HYPERTENSION, UNSPECIFIED Status: Chronic (14) Tobacco abuse Code(s): Z72.0 - TOBACCO USE Status: Chronic - Plan cont current plan of care, continue antibiotics, PT/OT, respiratory therapy * continue COPD and CHF treatment as ordered * medication reviewed as below * symptomatic treatment * start PT. * cardiology and pulmonary on case Review of Systems - Review of Systems Constitutional: weakness. negative: fever, chills, sweats, malaise, other ENT: negative: Ear Pain, Ear Discharge, Nose Pain, Nose Discharge, Nose Congestion, Mouth Pain, Mouth Swelling, Throat Pain, Throat Swelling, Other Respiratory: Cough, Shortness of Breath, SOB with Excertion, Sputum. negative: Dry, Hemoptysis, Pleuritic Pain, Wheezing Cardiovascular: negative: chest pain, palpitations, orthopnea, paroxysmal nocturnal dyspnea, edema, light headedness, other Gastrointestinal: negative: Nausea, Vomiting, Abdominal Pain, Diarrhea, Constipation, Melena, Hematochezia, Other Musculoskeletal: negative: Neck Pain, Shoulder Pain, Arm Pain, Back Pain, Hand Pain, Leg Pain, Foot Pain, Other Skin: negative: Rash, Lesions, Ronal, Bruising, Other - Medications/Allergies Allergies/Adverse Reactions: Allergies Allergy/AdvReac Type Severity Reaction Status Date / Time Penicillins Allergy Verified 08/21/15 20:39 propoxyphene Allergy Verified 08/21/15 20:39 ranolazine [From Ranexa] Allergy Verified 08/09/16 12:41 Sulfa (Sulfonamide Allergy Verified 08/21/15 20:39 Antibiotics) dextromethorphan AdvReac Unknown Verified 08/21/15 20:39 tramadol AdvReac Verified 08/21/15 20:39 Medications: Current Medications Acetaminophen (Tylenol) 650 mg PO Q4H PRN PRN Reason: Headache/Fever/Mild Pain (1-3) Hydrocodone Bitart/Acetaminophen ([place] 5/325) 1 tab PO Q4H PRN PRN Reason: Moderate Pain (4-6) Last Admin: 02/12/18 08:17 Dose: 1 tab Albuterol/Ipratropium (Duoneb) 3 ml NEB [id number] [facility] Last Admin: 02/12/18 07:20 Dose: 3 ml Albuterol/Ipratropium (Duoneb) 3 ml NEB Q2H PRN PRN Reason: SOB &/or Wheezing Last Admin: 02/11/18 16:01 Dose: 3 ml Allopurinol (Zyloprim) 100 mg PO DAILY [facility] Last Admin: 02/12/18 08:11 Dose: 100 mg Aspirin (Aspirin) 325 mg PO DAILY [facility] Last Admin: 02/12/18 08:11 Dose: 325 mg Atorvastatin Calcium (Lipitor) 40 mg PO HS [facility] Last Admin: 02/11/18 20:32 Dose: 40 mg Bisacodyl (Dulcolax) 10 mg PO DAILYPRN PRN PRN Reason: Constipation Bisacodyl (Dulcolax) 10 mg [place] DAILYPRN PRN PRN Reason: Constipation Calcium Carbonate (Tums) 1,000 mg PO Q4H PRN PRN Reason: Heartburn or Indigestion Carvedilol (Coreg) 6.25 mg PO BID-[facility] Last Admin: 02/12/18 08:11 Dose: 6.25 mg Cholecalciferol (Vitamin D3) 1,000 units PO DAILY [facility] Last Admin: 02/12/18 08:11 Dose: 1,000 units Clopidogrel Bisulfate (Plavix) 75 mg PO DAILY [facility] Last Admin: 02/12/18 08:11 Dose: 75 mg Enoxaparin Sodium (Lovenox) 40 mg SC 2100 [facility] Famotidine (Pepcid) 20 mg PO BID [facility] Last Admin: 02/12/18 08:11 Dose: 20 mg Ferrous Sulfate (Feosol) 325 mg PO QAM-WM [facility] Last Admin: 02/12/18 08:11 Dose: 325 mg Furosemide (Lasix) 20 mg SLOW IVP 0600,1400 [facility] Last Admin: 02/12/18 05:51 Dose: 20 mg Guaifenesin (Mucinex) 600 mg PO Q12HR [facility] Last Admin: 02/12/18 08:11 Dose: 600 mg Guaifenesin/Codeine Phosphate (Robitussin Ac) 5 ml PO Q4H PRN PRN Reason: Cough Last Admin: 02/12/18 01:33 Dose: 5 ml Levofloxacin 750 mg/ Device 150 mls @ 100 mls/hr IVPB 1100 [facility] Last Admin: 02/11/18 20:31 Dose: Not Given Ipratropium [place] (Atrovent) 2.5 ml NEB [id number] PRN PRN Reason: SOB &/or Wheezing Loperamide HCl (Imodium) 2 mg PO PRN PRN PRN Reason: Diarrhea/Loose Stools Last Admin: 02/11/18 20:37 Dose: 2 mg Methylprednisolone Sodium Succinate (Solu-Medrol) 40 mg IVP 0200,1000,1800 [facility] Last Admin: 02/12/18 01:32 Dose: 40 mg Mometasone Furoate/Formoterol Fumar (Dulera 200 Mcg/5 Mcg Inhaler) 2 puff INH BID-RT [facility] Last Admin: 02/12/18 07:21 Dose: 2 puff Ondansetron HCl (Zofran Odt) 4 mg PO Q6H PRN PRN Reason: Nausea/Vomiting Last Admin: 02/12/18 07:16 Dose: 4 mg Ondansetron HCl (Zofran) 4 mg IVP Q6H PRN PRN Reason: Nausea/Vomiting Senna/Docusate Sodium (Senokot S) 2 tab PO BIDPRN PRN PRN Reason: Constipation Tizanidine HCl (Zanaflex) 4 mg PO BIDPRN PRN PRN Reason: Muscle Spasm Zolpidem Tartrate (Ambien) 5 mg PO HSPRN PRN PRN Reason: Insomnia
[2018-02-12] MEDS: tiZANidine HCl 4 MG TAB PO PRN ×2 (12:52→23:42)
--- NOTE | 2018-02-12 15:39 | RAD ---
RIGHT WRIST 3 VIEWS: Date: 02/12/18 HISTORY: 62-year-old female with history of follow-up fracture. COMPARISON: 01/28/18. FINDINGS: Splint material stabilizes the wrist. The previously noted radial fracture has become more dorsally a ngulated with considerably more foreshortening and more resultant deformity when compared to the 01/15 07/02 study. There appears to be heterogeneous bone demineralization. IMPRESSION: Considerable worsening of position and alignment with marked foreshortening and dorsal angulation of the comminuted distal radial fracture when compared to the prior study. CODE T. POS: [facility]
[2018-02-12 17:16] VITALS: BMI 23.7
[2018-02-12] MEDS: Atorvastatin Calcium 40 MG TAB PO SCH (21:06)
[2018-02-12] MEDS: Enoxaparin Sodium 40 MG/0.4 ML SYRINGE SC SCH (21:06)
[2018-02-12] MEDS: Loperamide HCl 2 MG CAP PO PRN (23:42)
--- NOTE | 2018-02-13 00:19 | CON ---
DATE OF CONSULTATION: HISTORY OF PRESENT ILLNESS: A 62-year-old female, who was just recently discharged from the hospital, was readmitted to the hospital on the with chest pain, shortness of breath, and cough. She is still smoking. She tells me she is trying to quit smoking, but still smoking at least up to half a pack a day. There are no fever, chills, or sweats. During her last admission, she had an acute inferior myocardial infarction requiring a cardiac catheterization. No specific intervention was done. She was discharged home. She takes an Advair inhaler 250 twice a day and Spiriva once a day and nebulizer. CT chest angio was done, which shows no evidence of pulmonary emboli. She is coughing up sputum, which is relatively clear. This morning, she states she is still coughing and wheezing, but she is less short of breath. PAST MEDICAL HISTORY: COPD, coronary artery disease, [place], and hypertension. PAST SURGICAL HISTORY: Previous surgeries; CABG 2013 and tubal ligation. Fracture of right forearm, surgery to be scheduled once her cardiac status improves. Left eye surgery, elbow surgery, corneal transplant, tonsillectomy, and hysterectomy. MEDICATIONS: Medicine from home includes; 1. Tizanidine. 2. Spiriva. 3. Advair 500 rescue inhaler. 4. Zoloft 150. 5. Lyrica 100. 6. Coreg 6.25. 7. Plavix 75. 8. 0.5 twice a day. SOCIAL HISTORY: Alcohol as noted, none. Tobacco as noted. REVIEW OF SYSTEMS: A 10-point negative. PHYSICAL EXAMINATION: VITAL SIGNS: She is coughing during the examination, but her saturations are 99 on 2 L, respiratory rate 14, temperature 98, pulse 60, and blood pressure . LUNGS: Bilateral rhonchi and crackles. CARDIAC: Normal S1 and S2. No gallops. ABDOMEN: Soft without any mass. LABORATORY DATA: Chest x-ray was normal. CT angio did not show any evidence of pulmonary emboli. CT chest did show evidence of significant bronchiectatic changes. IMPRESSION: 1. Mrxuf-ed-upygvmm bronchitis. 2. Bronchiectasis. 3. Chronic obstructive pulmonary disease. 4. Ongoing tobacco abuse. 5. Recent myocardial infarction. 6. Coronary artery disease. 7. Congestive heart failure. PLAN: Pulmonary conde, she is on adequate medications, steroids, antibiotics. We will order a PFT. Switch her to oral mediation in the next 24 to 48 hours. Consultation note, 70 minutes, 50% direct patient care. Job ID: [id number]
[2018-02-13] MEDS: Furosemide 20 MG/2 ML VIAL SLOW IVP SCH (06:02)
[2018-02-13] MEDS: Mometasone/Formoterol 120 PUFF INHALER INH SCH ×2 (07:01→18:26)
[2018-02-13] MEDS: Famotidine 20 MG TAB PO SCH ×2 (08:12→20:38)
[2018-02-13] MEDS: Allopurinol 100 MG TAB PO SCH (08:12)
[2018-02-13] MEDS: Aspirin 325 MG TAB PO SCH (08:12)
[2018-02-13] MEDS: guaiFENesin ER 600 MG TAB PO SCH ×2 (08:12→20:38)
[2018-02-13] MEDS: Ferrous Sulfate 325 MG TAB PO SCH (08:13)
[2018-02-13] MEDS: Clopidogrel Bisulfate 75 MG TAB PO SCH (08:13)
[2018-02-13] MEDS: Ondansetron ODT 4 MG TAB PO PRN (08:16)
[2018-02-13] MEDS: guaiFENesin/Codeine Phosphate 200 mg/20 mg 10 ml UD Cup PO PRN ×2 (09:09→20:40)
--- NOTE | 2018-02-13 09:18 | PDOC.PN ---
- Subjective Encounter Start Date: 02/13/18 Encounter Start Time: 08:00 Patient seen and examined. No new complaints. No overnight events she feels better, less dyspnea, has pain at broken wrist, no fever - Objective Resuscitation Status - Order Detail: 02/11/18 08:24 Resuscitation Status Routine Resuscitation Status: FULL: Full Resuscitation MAR Reviewed: Yes Vital Signs & Weight: Vital Signs (12 hours) Temp Pulse Resp BP Pulse Ox 02/13/18 09:14 56 L 113/71 02/13/18 08:09 98.2 F 61 18 94/54 L 96 02/13/18 04:00 98.3 F 58 L 16 108/66 97 02/12/18 23:44 65 106/54 L Weight Weight 142 lb 6.4 oz Result Diagrams: 02/11/18 08:36 02/11/18 08:36 EKG Reviewed by me: Yes (nsr) Phys Exam - Physical Examination Constitutional: NAD HEENT: PERRLA, moist MMs, sclera anicteric Neck: no JVD, supple Respiratory: no rales, wheezing present Cardiovascular: RRR, no significant murmur, no rub Gastrointestinal: soft, non-tender, no distention, positive bowel sounds Musculoskeletal: no edema, pulses present Neurological: non-focal, normal sensation Lymphatic: no nodes Psychiatric: normal affect, A&O x 3 Skin: no rash, normal turgor Dx/Plan (1) Acute on chronic diastolic ACC/AHA stage C congestive heart failure Code(s): I50.33 - ACUTE ON CHRONIC DIASTOLIC (CONGESTIVE) HEART FAILURE Status : Acute Comment: continue lasix (2) COPD exacerbation Code(s): J44.1 - CHRONIC OBSTRUCTIVE PULMONARY DISEASE W (ACUTE) EXACERBATION Status: Acute Comment: currently on optimum medical therapy (3) Elevated troponin Code(s): R74.8 - ABNORMAL LEVELS OF OTHER SERUM ENZYMES Status: Acute Comment: demand ischemia (4) Hyperuricemia Code(s): E79.0 - HYPERURICEMIA W/O SIGNS OF INFLAM ARTHRIT AND TOPHACEOUS DIS Status: Acute Comment: on allopurinol (5) Hypokalemia Code(s): E87.6 - HYPOKALEMIA Status: Acute (6) Left lower lobe pneumonia Code(s): J18.1 - LOBAR PNEUMONIA, UNSPECIFIED ORGANISM Status: Acute Comment : on levaquin (7) Anemia, normocytic normochromic Code(s): D64.9 - ANEMIA, UNSPECIFIED Status: Chronic (8) CAD (coronary artery disease) Code(s): I25.10 - ATHSCL HEART DISEASE OF [place] CORONARY ARTERY W/O ANG PCTRS Status: Chronic Qualifiers: Coronary Disease-Associated Artery/Lesion type: bypass graft Associated angina: with unstable angina (9) Chronic pain Code(s): G89.29 - OTHER CHRONIC PAIN Status: Chronic (10) Colles' fracture of right radius Code(s): S52.531A - COLLES' FRACTURE OF RIGHT RADIUS, INIT FOR CLOS FX Status : Chronic (11) Hypertension Code(s): I10 - ESSENTIAL (PRIMARY) HYPERTENSION Status: Chronic Qualifiers: Hypertension type: essential hypertension Qualified Code(s): I10 - Essential (primary) hypertension (12) Moderate tricuspid regurgitation by prior echocardiogram Code(s): I07.1 - RHEUMATIC TRICUSPID INSUFFICIENCY Status: Chronic (13) Pulmonary hypertension Code(s): I27.20 - PULMONARY HYPERTENSION, UNSPECIFIED Status: Chronic (14) Tobacco abuse Code(s): Z72.0 - TOBACCO USE Status: Chronic - Plan cont current plan of care, continue antibiotics, PT/OT, social work case manager, respiratory therapy * PT recommends rehab but pt refuses as she wants to take care of animal, but based on our opinion she will get benefit with placement * continue levaquin and current respiratory therapy * medication reviewed as below * symptomatic treatment * continue lasix * repeat labs today and tomorrow * continue PT. * will ask pulmonary and cardiology to document if this pt is medically cleared for surgery if planned by ortho for her wrist fracture Review of Systems - Review of Systems Constitutional: weakness. negative: fever, chills, sweats, malaise, other Eyes: negative: Pain, Vision Change, Conjunctivae Inflammation, Eyelid Inflammation, Redness, Other ENT: negative: Ear Pain, Ear Discharge, Nose Pain, Nose Discharge, Nose Congestion, Mouth Pain, Mouth Swelling, Throat Pain, Throat Swelling, Other Respiratory: negative: Cough, Dry, Shortness of Breath, Hemoptysis, SOB with Excertion, Pleuritic Pain, Sputum, Wheezing Cardiovascular: negative: chest pain, palpitations, orthopnea, paroxysmal nocturnal dyspnea, edema, light headedness, other Gastrointestinal: negative: Nausea, Vomiting, Abdominal Pain, Diarrhea, Constipation, Melena, Hematochezia, Other Genitourinary: negative: Dysuria, Frequency, Incontinence, Hematuria, Retention , Other Musculoskeletal: Hand Pain. negative: Neck Pain, Shoulder Pain, Arm Pain, Back Pain, Leg Pain, Foot Pain, Other - Medications/Allergies Allergies/Adverse Reactions: Allergies Allergy/AdvReac Type Severity Reaction Status Date / Time Penicillins Allergy Verified 08/21/15 20:39 propoxyphene Allergy Verified 08/21/15 20:39 ranolazine [From Ranexa] Allergy Verified 08/09/16 12:41 Sulfa (Sulfonamide Allergy Verified 08/21/15 20:39 Antibiotics) dextromethorphan AdvReac Unknown Verified 08/21/15 20:39 tramadol AdvReac Verified 08/21/15 20:39 Medications: Current Medications Acetaminophen (Tylenol) 650 mg PO Q4H PRN PRN Reason: Headache/Fever/Mild Pain (1-3) Hydrocodone Bitart/Acetaminophen ([place] 5/325) 1 tab PO Q4H PRN PRN Reason: Moderate Pain (4-6) Last Admin: 02/12/18 21:06 Dose: 1 tab Albuterol/Ipratropium (Duoneb) 3 ml NEB [id number] [facility] Last Admin: 02/13/18 07:02 Dose: Not Given Albuterol/Ipratropium (Duoneb) 3 ml NEB Q2H PRN PRN Reason: SOB &/or Wheezing Last Admin: 02/11/18 16:01 Dose: 3 ml Allopurinol (Zyloprim) 100 mg PO DAILY [facility] Last Admin: 02/13/18 08:12 Dose: 100 mg Aspirin (Aspirin) 325 mg PO DAILY [facility] Last Admin: 02/13/18 08:12 Dose: 325 mg Atorvastatin Calcium (Lipitor) 40 mg PO HS [facility] Last Admin: 02/12/18 21:06 Dose: 40 mg Bisacodyl (Dulcolax) 10 mg PO DAILYPRN PRN PRN Reason: Constipation Bisacodyl (Dulcolax) 10 mg [place] DAILYPRN PRN PRN Reason: Constipation Calcium Carbonate (Tums) 1,000 mg PO Q4H PRN PRN Reason: Heartburn or Indigestion Carvedilol (Coreg) 6.25 mg PO BID-[facility] Last Admin: 02/12/18 16:57 Dose: 6.25 mg Cholecalciferol (Vitamin D3) 1,000 units PO DAILY [facility] Last Admin: 02/13/18 08:13 Dose: 1,000 units Clopidogrel Bisulfate (Plavix) 75 mg PO DAILY [facility] Last Admin: 02/13/18 08:13 Dose: 75 mg Enoxaparin Sodium (Lovenox) 40 mg SC 2100 [facility] Last Admin: 02/12/18 21:06 Dose: 40 mg Famotidine (Pepcid) 20 mg PO BID [facility] Last Admin: 02/13/18 08:12 Dose: 20 mg Ferrous Sulfate (Feosol) 325 mg PO QAM-[facility] Last Admin: 02/13/18 08:13 Dose: 325 mg [facility]sem[facility] (Lasix) [facility] Guaifenesin (Mucinex) 600 mg PO Q12HR [facility] Last Admin: 02/13/18 08:12 Dose: 600 mg Guaifenesin/Codeine Phosphate (Robitussin Ac) 5 ml PO Q4H PRN PRN Reason: Cough Last Admin: 02/13/18 09:09 Dose: 5 ml Levofloxacin 750 mg/ Device 150 mls @ 100 mls/hr IVPB 1100 [facility] Last Admin: 02/12/18 10:14 Dose: 150 mls Ipratropium [place] (Atrovent) 2.5 ml NEB [id number] PRN PRN Reason: SOB &/or Wheezing Loperamide HCl (Imodium) 2 mg PO PRN PRN PRN Reason: Diarrhea/Loose Stools Last Admin: 02/12/18 23:42 Dose: 2 mg Methylprednisolone Sodium Succinate (Solu-Medrol) 40 mg IVP 0200,1000,1800 [facility] Last Admin: 02/13/18 02:30 Dose: 40 mg Mometasone Furoate/Formoterol Fumar (Dulera 200 Mcg/5 Mcg Inhaler) 2 puff INH BID-RT [facility] Last Admin: 02/13/18 07:01 Dose: 2 puff Ondansetron HCl (Zofran Odt) 4 mg PO Q6H PRN PRN Reason: Nausea/Vomiting Last Admin: 02/13/18 08:16 Dose: 4 mg Ondansetron HCl (Zofran) 4 mg IVP Q6H PRN PRN Reason: Nausea/Vomiting Senna/Docusate Sodium (Senokot S) 2 tab PO BIDPRN PRN PRN Reason: Constipation Sodium Chloride (Flush - Normal Saline) 10 ml IVF Q12HR NEY Last Admin: 02/13/18 08:13 Dose: 10 ml Sodium Chloride (Flush - Normal Saline) 10 ml IVF PRN PRN PRN Reason: Saline Flush Last Admin: 02/13/18 06:02 Dose: 10 ml Tizanidine HCl (Zanaflex) 4 mg PO BIDPRN PRN PRN Reason: Muscle Spasm Last Admin: 02/12/18 23:42 Dose: 4 mg Zolpidem Tartrate (Ambien) 5 mg PO HSPRN PRN PRN Reason: Insomnia
[2018-02-13] MEDS: Carvedilol 6.25 MG TAB PO SCH ×2 (09:53→17:04)
[2018-02-13 10:11] LABS: #Lymphocytes 0.8 thou/uL (1.20-3.40); #Monocytes 0.3 thou/uL (0.11-0.59); #Neutrophils 5.1 thou/uL (1.40-6.50); %Basophils 0.2 % (0.0-1.0); %Eosinophils 0.1 % (0.0-10.0); %Lymphocytes 12.4 % (21.0-51.0); %Monocytes 5.1 % (0.0-10.0); %Neutrophils 82.2 % (42.0-75.0); Hemoglobin 11.5 g/dL (12.0-16.0); Mean Corpuscular HGB CONC 32.7 g/dL (32.0-36.0); Mean Corpuscular Hemoglobin 29.5 pg (27.0-31.0); Mean Corpuscular Volume 90.1 fL (78.0-98.0); Platelet Count 336 thou/uL (130-400); RBC Distribution Width 13.7 % (11.5-14.5); White Blood Cell (WBC) Count 6.2 thou/uL (4.8-10.8)
[2018-02-13 10:34] LABS: Anion Gap 19 mmol/L (10-20); BUN (Urea Nitrogen) 17 mg/dL (9.8-20.1); Calc. Creatinine Clearance 56 mL/min (70-130); Calcium 8.8 mg/dL (7.8-10.44); Carbon Dioxide 29 mmol/L (22-29); Chloride 93 mmol/L (98-107); Estimated GFR-MDRD 52; Glucose 112 mg/dL (70-105); Magnesium 1.8 mg/dL (1.6-2.6); Potassium 3.2 mmol/L (3.5-5.1); Sodium 138 mmol/L (136-145)
--- NOTE | 2018-02-13 10:47 | PRG ---
DATE OF SERVICE: 02/13/2018 SUBJECTIVE: This morning, she is doing better. OBJECTIVE: VITAL SIGNS: Temperature 98, pulse 61, respiratory rate 18, saturations 91% on 1 L, and blood pressure is 94/54. CHEST: Decreased breath sounds. No wheezing. CARDIAC: Normal S1 and S2. No gallops. . IMPRESSION: 1. Chronic obstructive pulmonary disease. 2. Coronary artery disease. 3. Fractured ribs. PLAN: From pulmonary standpoint; however, she is doing well. Disposition as per primary care physician and Surgery. Job ID: [id number]
[2018-02-13] MEDS ORDERED: Potassium Chloride 20 MEQ TAB PO SCH (11:45)
[2018-02-13] MEDS: HYDROcodone/Acetaminophen 5/325 mg Tablet PO PRN ×2 (12:13→20:38)
[2018-02-13] MEDS ORDERED: Lubiprostone 8 MCG CAP PO PRN (12:43)
[2018-02-13] MEDS ORDERED: tiZANidine HCl 4 MG TAB PO PRN (12:43)
[2018-02-13] MEDS ORDERED: ZOLPIDEM TARTRATE 5 MG PO PRN (12:43)
[2018-02-13] MEDS: clonazePAM 0.5 MG TAB PO PRN (15:03)
--- NOTE | 2018-02-13 15:32 | CON ---
DATE OF CONSULTATION: 02/13/2018 REASON FOR CONSULTATION: Right distal radius fracture. REQUESTING PHYSICIAN: [facility]. CONSULTING PHYSICIAN: Kenan Azul MD. HISTORY OF PRESENT ILLNESS: This is a 62-year-old female, who initially reported to [facility] on 01/30/2018 status post fall 2 days prior. She sustained a STEMI at that time. She was seen in ICU by Dr. Weinberg and was found to have a right distal radius fracture. This had been reduced in the [place] [facility] two days prior on the . She was placed in a sugar-tong splint. Upon that hospital admission, she was not a surgical candidate due to her heart attack. She was placed in a volar splint and instructed to follow up with Dr. Weinberg in the clinic in 5 to 7 days. She now presents and is admitted for dyspnea and congestive heart failure. She states that she has within the last 2 weeks gone back into the emergency department and was transitioned from our volar splint back into a sugar-tong splint. She denies any new falls. PAST MEDICAL HISTORY: Significant for coronary artery bypass in 2012, decreased ejection fraction, chronic obstructive pulmonary disease, history of low back surgery, right elbow surgery, hypertension, anxiety, depression, and hyperlipidemia. PAST SURGICAL HISTORY: Lumbar spine surgery, multiple eye surgeries, right elbow surgery, corneal transplant, tonsillectomy, cholecystectomy. ALLERGIES: DARVOCET, PENICILLIN, SULFA, AND ULTRAM. SOCIAL HISTORY: The patient smokes a pack a day. She denies any alcohol or drug use. She lives in the [place] area. She is currently disabled. REVIEW OF SYSTEMS: A 10-point review of systems conducted and is otherwise negative except for stated above. FAMILY HISTORY: Reviewed and noncontributory. PHYSICAL EXAMINATION: VITAL SIGNS: Temperature 98.3, pulse 58, respiratory rate of 16, O2 saturation is 97% on 2 L nasal cannula oxygen flow. Blood pressure 108/66. GENERAL: The patient is awake and alert. She is in no acute distress. HEENT: Head is normocephalic, atraumatic. NECK: Supple. Trachea midline. EXTREMITIES: The right upper extremity was evaluated. There is a sugar-tong splint present to the right upper extremity. Her thumb is wrapped with the rest of her digits, so she is unable to move her thumb. I have loosened the KATHRYN wrap in order to get a good examination. She is able to move all digits. Sensation intact in all 5 digits. Capillary refills 2 seconds. RADIOGRAPHIC FINDINGS: X-rays taken at this visit including views of the right wrist show evidence of a dorsally angulated distal radius fracture. This appears to have worsened in angulation since previous x-rays at her last hospital visit. ASSESSMENT: Right distal radius fracture. PLAN: We will change the patient's sugar tong splint back into her volar splint so she can better move her digits. We will continue with previous plan. Further followup in the clinic to see Dr. Weinberg and continue treatment with him. This fracture is now 2 weeks out although has moved slightly, we may not anticipate surgical intervention secondary to the healing that is already present. We will change her splint and she may follow up as an outpatient. Job ID: [id number]
[2018-02-13] MEDS: Rosuvastatin 20 MG TAB PO SCH (20:36)
[2018-02-13] MEDS: Enoxaparin Sodium 40 MG/0.4 ML SYRINGE SC SCH (20:40)
[2018-02-13] MEDS: Pregabalin 25 MG CAP PO SCH (21:16)
[2018-02-13] MEDS: tiZANidine HCl 4 MG TAB PO PRN (22:07)
[2018-02-14] MEDS: guaiFENesin/Codeine Phosphate 200 mg/20 mg 10 ml UD Cup PO PRN ×3 (02:38→20:53)
[2018-02-14 06:13] LABS: #Lymphocytes 0.8 thou/uL (1.20-3.40); #Monocytes 0.4 thou/uL (0.11-0.59); %Basophils 0.2 % (0.0-1.0); %Eosinophils 0.1 % (0.0-10.0); %Lymphocytes 15.4 % (21.0-51.0); %Monocytes 6.9 % (0.0-10.0); %Neutrophils 77.3 % (42.0-75.0); Hemoglobin 11.6 g/dL (12.0-16.0); Mean Corpuscular HGB CONC 32.8 g/dL (32.0-36.0); Mean Corpuscular Hemoglobin 29.8 pg (27.0-31.0); Mean Corpuscular Volume 90.6 fL (78.0-98.0); Mean Platelet Volume 7.8 fL (7.4-10.4); Platelet Count 337 thou/uL (130-400); Red Blood Cell (RBC) Count 3.89 mill/uL (4.20-5.40); White Blood Cell (WBC) Count 5.2 thou/uL (4.8-10.8)
[2018-02-14 06:24] LABS: Magnesium 1.9 mg/dL (1.6-2.6)
[2018-02-14 06:28] LABS: Anion Gap 15 mmol/L (10-20); BUN (Urea Nitrogen) 20 mg/dL (9.8-20.1); Calc. Creatinine Clearance 57 mL/min (70-130); Calcium 8.8 mg/dL (7.8-10.44); Carbon Dioxide 28 mmol/L (22-29); Chloride 95 mmol/L (98-107); Estimated GFR-MDRD 52; Glucose 121 mg/dL (70-105); Potassium 3.1 mmol/L (3.5-5.1); Sodium 135 mmol/L (136-145)
[2018-02-14] MEDS: Mometasone/Formoterol 120 PUFF INHALER INH SCH ×2 (07:27→18:48)
[2018-02-14] MEDS ORDERED: Spiriva 18 MCG CAP (Box of 5 Caps) INH SCH (09:00)
--- NOTE | 2018-02-14 09:21 | PDOC.PN ---
- Subjective Encounter Start Date: 02/14/18 Encounter Start Time: 07:20 Patient seen and examined. No new complaints. No overnight events - Objective Resuscitation Status - Order Detail: 02/11/18 08:24 Resuscitation Status Routine Resuscitation Status: FULL: Full Resuscitation MAR Reviewed: Yes Vital Signs & Weight: Vital Signs (12 hours) Temp Pulse Resp BP Pulse Ox 02/14/18 07:27 59 L 16 99 02/14/18 07:24 59 L 16 99 02/14/18 04:00 97.9 F 57 L 18 120/59 L 96 02/14/18 00:00 58 L 99/56 L Weight Weight 142 lb 6.4 oz I&O: 02/13/18 02/14/18 02/15/18 06:59 06:59 06:59 Intake Total 1570 Output Total 1250 Balance 320 Result Diagrams: 02/14/18 05:59 02/14/18 05:59 EKG Reviewed by me: Yes (nsr) Phys Exam - Physical Examination Constitutional: NAD HEENT: PERRLA, moist MMs, sclera anicteric Neck: no JVD, supple Respiratory: no wheezing, no rales Cardiovascular: RRR, no significant murmur, no rub Gastrointestinal: soft, non-tender, no distention, positive bowel sounds Musculoskeletal: no edema, pulses present Neurological: non-focal, normal sensation, moves all 4 limbs Lymphatic: no nodes Psychiatric: normal affect, A&O x 3 Skin: no rash, normal turgor Dx/Plan (1) Acute on chronic diastolic ACC/AHA stage C congestive heart failure Code(s): I50.33 - ACUTE ON CHRONIC DIASTOLIC (CONGESTIVE) HEART FAILURE Status : Acute Comment: continue lasix (2) COPD exacerbation Code(s): J44.1 - CHRONIC OBSTRUCTIVE PULMONARY DISEASE W (ACUTE) EXACERBATION Status: Acute Comment: currently on optimum medical therapy (3) Elevated troponin Code(s): R74.8 - ABNORMAL LEVELS OF OTHER SERUM ENZYMES Status: Acute Comment: demand ischemia (4) Hyperuricemia Code(s): E79.0 - HYPERURICEMIA W/O SIGNS OF INFLAM ARTHRIT AND TOPHACEOUS DIS Status: Acute Comment: on allopurinol (5) Hypokalemia Code(s): E87.6 - HYPOKALEMIA Status: Acute (6) Left lower lobe pneumonia Code(s): J18.1 - LOBAR PNEUMONIA, UNSPECIFIED ORGANISM Status: Acute Comment : on levaquin (7) Anemia, normocytic normochromic Code(s): D64.9 - ANEMIA, UNSPECIFIED Status: Chronic (8) CAD (coronary artery disease) Code(s): I25.10 - ATHSCL HEART DISEASE OF [place] CORONARY ARTERY W/O ANG PCTRS Status: Chronic Qualifiers: Coronary Disease-Associated Artery/Lesion type: bypass graft Associated angina: with unstable angina (9) Chronic pain Code(s): G89.29 - OTHER CHRONIC PAIN Status: Chronic (10) Colles' fracture of right radius Code(s): S52.531A - COLLES' FRACTURE OF RIGHT RADIUS, INIT FOR CLOS FX Status : Chronic (11) Hypertension Code(s): I10 - ESSENTIAL (PRIMARY) HYPERTENSION Status: Chronic Qualifiers: Hypertension type: essential hypertension Qualified Code(s): I10 - Essential (primary) hypertension (12) Moderate tricuspid regurgitation by prior echocardiogram Code(s): I07.1 - RHEUMATIC TRICUSPID INSUFFICIENCY Status: Chronic (13) Pulmonary hypertension Code(s): I27.20 - PULMONARY HYPERTENSION, UNSPECIFIED Status: Chronic (14) Tobacco abuse Code(s): Z72.0 - TOBACCO USE Status: Chronic - Plan cont current plan of care, continue antibiotics, PT/OT, social service liaison, respiratory therapy * change solumderol to po prednisone * continue oral lasix * continue levaquin * pt will need swing bed, await approval * medication reviewed as below * symptomatic treatment. * no plan for surgery for wrist fracture Review of Systems - Review of Systems Constitutional: weakness. negative: fever, chills, sweats, malaise, other Eyes: negative: Pain, Vision Change, Conjunctivae Inflammation, Eyelid Inflammation, Redness, Other ENT: negative: Ear Pain, Ear Discharge, Nose Pain, Nose Discharge, Nose Congestion, Mouth Pain, Mouth Swelling, Throat Pain, Throat Swelling, Other Respiratory: Cough, SOB with Excertion. negative: Dry, Shortness of Breath, Hemoptysis, Pleuritic Pain, Sputum, Wheezing Cardiovascular: negative: chest pain, palpitations, orthopnea, paroxysmal nocturnal dyspnea, edema, light headedness, other Gastrointestinal: negative: Nausea, Vomiting, Abdominal Pain, Diarrhea, Constipation, Melena, Hematochezia, Other Genitourinary: negative: Dysuria, Frequency, Incontinence, Hematuria, Retention , Other Musculoskeletal: negative: Neck Pain, Shoulder Pain, Arm Pain, Back Pain, Hand Pain, Leg Pain, Foot Pain, Other Skin: negative: Rash, Lesions, Ronal, Bruising, Other - Medications/Allergies Allergies/Adverse Reactions: Allergies Allergy/AdvReac Type Severity Reaction Status Date / Time Penicillins Allergy Verified 08/21/15 20:39 propoxyphene Allergy Verified 08/21/15 20:39 ranolazine [From Ranexa] Allergy Verified 08/09/16 12:41 Sulfa (Sulfonamide Allergy Verified 08/21/15 20:39 Antibiotics) dextromethorphan AdvReac Unknown Verified 08/21/15 20:39 tramadol AdvReac Verified 08/21/15 20:39 Medications: Current Medications Acetaminophen (Tylenol) 650 mg PO Q4H PRN PRN Reason: Headache/Fever/Mild Pain (1-3) Hydrocodone Bitart/Acetaminophen ([place] 5/325) 1 tab PO Q4H PRN PRN Reason: Moderate Pain (4-6) Last Admin: 02/13/18 20:38 Dose: 1 tab Albuterol/Ipratropium (Duoneb) 3 ml NEB [id number] [facility] Last Admin: 02/14/18 07:24 Dose: 3 ml Albuterol/Ipratropium (Duoneb) 3 ml NEB Q2H PRN PRN Reason: SOB &/or Wheezing Last Admin: 02/11/18 16:01 Dose: 3 ml Allopurinol (Zyloprim) 100 mg PO DAILY [facility] Last Admin: 02/13/18 08:12 Dose: 100 mg Aspirin (Aspirin Chewable) 81 mg PO DAILY [facility] Bisacodyl (Dulcolax) 10 mg PO DAILYPRN PRN PRN Reason: Constipation Bisacodyl (Dulcolax) 10 mg [place] DAILYPRN PRN PRN Reason: Constipation Calcium Carbonate (Tums) 1,000 mg PO Q4H PRN PRN Reason: Heartburn or Indigestion Carvedilol (Coreg) 6.25 mg PO BID-WM [facility] Last Admin: 02/13/18 17:04 Dose: 6.25 mg Cholecalciferol (Vitamin D3) 1,000 units PO DAILY [facility] Last Admin: 02/13/18 08:13 Dose: 1,000 units Clonazepam (Klonopin) 0.5 mg PO BID PRN PRN Reason: Anxiety Last Admin: 02/13/18 15:03 Dose: 0.5 mg Clopidogrel Bisulfate (Plavix) 75 mg PO DAILY [facility] Last Admin: 02/13/18 08:13 Dose: 75 mg Enoxaparin Sodium (Lovenox) 40 mg SC 2100 [facility] Last Admin: 02/13/18 20:40 Dose: 40 mg Famotidine (Pepcid) 20 mg PO BID [facility] Last Admin: 02/13/18 20:38 Dose: 20 mg Ferrous Sulfate (Feosol) 325 mg PO QAM-[facility] Last Admin: 02/13/18 08:13 Dose: 325 mg Furosemide (Lasix) 40 mg PO DAILY-[facility] Guaifenesin (Mucinex) 600 mg PO Q12HR [facility] Last Admin: 02/13/18 20:38 Dose: 600 mg Guaifenesin/Codeine Phosphate (Robitussin Ac) 5 ml PO Q4H PRN PRN Reason: Cough Last Admin: 02/14/18 02:38 Dose: 5 ml Levofloxacin 750 mg/ Device 150 mls @ 100 mls/hr IVPB 1100 [facility] Last Admin: 02/13/18 09:57 Dose: 150 mls Loperamide HCl (Imodium) 2 mg PO PRN PRN PRN Reason: Diarrhea/Loose Stools Last Admin: 02/12/18 23:42 Dose: 2 mg [place]ipro[place] (Amitiza) 8 mcg PO BID-WM PRN PRN Reason: Constipation Mometasone Furoate/Formoterol Fumar (Dulera 200 Mcg/5 Mcg Inhaler) 2 puff INH BID-RT [facility] Last Admin: 02/14/18 07:27 Dose: 2 puff Ondansetron HCl (Zofran Odt) 4 mg PO Q6H PRN PRN Reason: Nausea/Vomiting Last Admin: 02/13/18 08:16 Dose: 4 mg Ondansetron HCl (Zofran) 4 mg IVP Q6H PRN PRN Reason: Nausea/Vomiting Potassium Chloride (K-Dur) 40 meq PO BID-[facility] Stop: 02/14/18 17:01 Prednisone (Prednisone) 20 mg PO QAM-[facility] Pregabalin (Lyrica) 25 mg PO BID NEY Last Admin: 02/13/18 21:16 Dose: 25 mg Rosuvastatin Calcium (Crestor) 40 mg PO HS [facility] Last Admin: 02/13/18 20:36 Dose: 40 mg Senna/Docusate Sodium (Senokot S) 2 tab PO BIDPRN PRN PRN Reason: Constipation Sertraline HCl (Zoloft) 150 mg PO DAILY [facility] Sodium Chloride (Flush - Normal Saline) 10 ml IVF Q12HR [facility] Last Admin: 02/13/18 20:41 Dose: 10 ml Sodium Chloride (Flush - Normal Saline) 10 ml IVF PRN PRN PRN Reason: Saline Flush Last Admin: 02/14/18 02:38 Dose: 10 ml Tizanidine HCl (Zanaflex) 4 mg PO BIDPRN PRN PRN Reason: Muscle Spasm Last Admin: 02/13/18 22:07 Dose: 4 mg Zolpidem Tartrate (Ambien) 5 mg PO HSPRN PRN PRN Reason: Insomnia
[2018-02-14] MEDS: Potassium Chloride 20 MEQ TAB PO SCH ×2 (09:39→18:09)
[2018-02-14] MEDS: Clopidogrel Bisulfate 75 MG TAB PO SCH (09:40)
[2018-02-14] MEDS: guaiFENesin ER 600 MG TAB PO SCH ×2 (09:41→20:53)
[2018-02-14] MEDS: Carvedilol 6.25 MG TAB PO SCH ×2 (09:41→18:09)
[2018-02-14] MEDS: Famotidine 20 MG TAB PO SCH ×2 (09:41→20:56)
[2018-02-14] MEDS: Allopurinol 100 MG TAB PO SCH (09:41)
[2018-02-14] MEDS: predniSONE 20 MG TAB PO SCH (09:41)
[2018-02-14] MEDS: Ferrous Sulfate 325 MG TAB PO SCH (09:42)
[2018-02-14] MEDS: Furosemide 40 MG TAB PO SCH (09:42)
[2018-02-14] MEDS: HYDROcodone/Acetaminophen 5/325 mg Tablet PO PRN ×2 (09:47→20:53)
[2018-02-14] MEDS: Pregabalin 25 MG CAP PO SCH ×2 (09:54→20:54)
--- NOTE | 2018-02-14 13:06 | PRG ---
DATE OF SERVICE: 02/14/2018 SUBJECTIVE: The patient is doing reasonably well. She had no acute complaints. PHYSICAL EXAMINATION: VITAL SIGNS: Temperature is 98.1, pulse 67, respirations 20, O2 sat 96%, and blood pressure 137/64. HEENT: Unremarkable. NECK: No JVD. CHEST: Clear. CARDIAC: S1, S2, regular. LUNGS: Distant breath sounds. ABDOMEN: Soft. EXTREMITIES: No edema. LABORATORY DATA: White blood cell count 5.2, hematocrit 35.2, and platelet count 337. Sodium 135, potassium 3.1, BUN 20, creatinine 1.1, and glucose 121. ASSESSMENT: 1. Chronic obstructive pulmonary disease that is severe, but appears to be stable. 2. Rib fractures. 3. Coronary artery disease. PLAN: She is stable on her current pulmonary medications. She was expected to go to rehab soon. No further Pulmonary/Critical Care recommendations. Job ID: [id number]
[2018-02-14] MEDS: clonazePAM 0.5 MG TAB PO PRN (14:02)
[2018-02-14] MEDS: Rosuvastatin 20 MG TAB PO SCH (20:53)
[2018-02-14] MEDS: Enoxaparin Sodium 40 MG/0.4 ML SYRINGE SC SCH (20:55)
[2018-02-14] MEDS: Loperamide HCl 2 MG CAP PO PRN (23:54)
[2018-02-14] MEDS: tiZANidine HCl 4 MG TAB PO PRN (23:55)
[2018-02-15] MEDS: HYDROcodone/Acetaminophen 5/325 mg Tablet PO PRN ×2 (08:04→13:20)
[2018-02-15] MEDS: Ferrous Sulfate 325 MG TAB PO SCH (08:06)
[2018-02-15] MEDS: Carvedilol 6.25 MG TAB PO SCH ×2 (08:06→17:54)
[2018-02-15] MEDS: predniSONE 20 MG TAB PO SCH (08:06)
[2018-02-15] MEDS: Furosemide 40 MG TAB PO SCH (08:06)
[2018-02-15] MEDS: Allopurinol 100 MG TAB PO SCH (08:06)
[2018-02-15] MEDS: Clopidogrel Bisulfate 75 MG TAB PO SCH (08:07)
[2018-02-15] MEDS: Famotidine 20 MG TAB PO SCH ×2 (08:08→20:28)
[2018-02-15] MEDS: guaiFENesin ER 600 MG TAB PO SCH ×2 (08:08→20:28)
[2018-02-15 08:51] LABS: Anion Gap 14 mmol/L (10-20); BUN (Urea Nitrogen) 22 mg/dL (9.8-20.1); Calc. Creatinine Clearance 54 mL/min (70-130); Calcium 8.9 mg/dL (7.8-10.44); Carbon Dioxide 31 mmol/L (22-29); Chloride 98 mmol/L (98-107); Estimated GFR-MDRD 49; Glucose 83 mg/dL (70-105); Potassium 3.3 mmol/L (3.5-5.1); Sodium 140 mmol/L (136-145)
--- NOTE | 2018-02-15 09:19 | PDOC.PN ---
- Subjective Encounter Start Date: 02/15/18 Encounter Start Time: 07:30 Patient seen and examined. No new complaints. No overnight events - Objective Resuscitation Status - Order Detail: 02/11/18 08:24 Resuscitation Status Routine Resuscitation Status: FULL: Full Resuscitation MAR Reviewed: Yes Vital Signs & Weight: Vital Signs (12 hours) Temp Pulse Resp BP BP Pulse Ox 02/15/18 08:06 102/61 02/15/18 04:00 97.7 F 64 20 97/64 94 L 02/15/18 00:49 98 Weight Weight 142 lb 12.8 oz I&O: 02/14/18 02/15/18 02/16/18 06:59 06:59 06:59 Intake Total 1570 490 Output Total 1250 1200 Balance 320 -710 Result Diagrams: 02/14/18 05:59 02/15/18 08:05 EKG Reviewed by me: Yes (nsr) Phys Exam - Physical Examination Constitutional: NAD HEENT: PERRLA, moist MMs, sclera anicteric Neck: no JVD, supple Respiratory: no wheezing, no rales, no rhonchi Cardiovascular: RRR, no significant murmur, no rub Gastrointestinal: soft, non-tender, no distention, positive bowel sounds Musculoskeletal: no edema, pulses present Neurological: non-focal, normal sensation, moves all 4 limbs Lymphatic: no nodes Psychiatric: normal affect, A&O x 3 Skin: no rash, normal turgor Dx/Plan (1) Acute on chronic diastolic ACC/AHA stage C congestive heart failure Code(s): I50.33 - ACUTE ON CHRONIC DIASTOLIC (CONGESTIVE) HEART FAILURE Status : Acute Comment: continue lasix (2) COPD exacerbation Code(s): J44.1 - CHRONIC OBSTRUCTIVE PULMONARY DISEASE W (ACUTE) EXACERBATION Status: Acute Comment: currently on optimum medical therapy (3) Elevated troponin Code(s): R74.8 - ABNORMAL LEVELS OF OTHER SERUM ENZYMES Status: Acute Comment: demand ischemia (4) Hyperuricemia Code(s): E79.0 - HYPERURICEMIA W/O SIGNS OF INFLAM ARTHRIT AND TOPHACEOUS DIS Status: Acute Comment: on allopurinol (5) Hypokalemia Code(s): E87.6 - HYPOKALEMIA Status: Acute (6) Left lower lobe pneumonia Code(s): J18.1 - LOBAR PNEUMONIA, UNSPECIFIED ORGANISM Status: Acute Comment : on levaquin (7) Anemia, normocytic normochromic Code(s): D64.9 - ANEMIA, UNSPECIFIED Status: Chronic (8) CAD (coronary artery disease) Code(s): I25.10 - ATHSCL HEART DISEASE OF [place] CORONARY ARTERY W/O ANG PCTRS Status: Chronic Qualifiers: Coronary Disease-Associated Artery/Lesion type: bypass graft Associated angina: with unstable angina (9) Chronic pain Code(s): G89.29 - OTHER CHRONIC PAIN Status: Chronic (10) Colles' fracture of right radius Code(s): S52.531A - COLLES' FRACTURE OF RIGHT RADIUS, INIT FOR CLOS FX Status : Chronic (11) Hypertension Code(s): I10 - ESSENTIAL (PRIMARY) HYPERTENSION Status: Chronic Qualifiers: Hypertension type: essential hypertension Qualified Code(s): I10 - Essential (primary) hypertension (12) Moderate tricuspid regurgitation by prior echocardiogram Code(s): I07.1 - RHEUMATIC TRICUSPID INSUFFICIENCY Status: Chronic (13) Pulmonary hypertension Code(s): I27.20 - PULMONARY HYPERTENSION, UNSPECIFIED Status: Chronic (14) Tobacco abuse Code(s): Z72.0 - TOBACCO USE Status: Chronic - Plan cont current plan of care, continue antibiotics, respiratory therapy * medication reviewed as below * symptomatic treatment * continue current antibiotics * medically stable and improving * replace potassium * await swing bed arrangement. Review of Systems - Review of Systems Constitutional: weakness. negative: fever, chills, sweats, malaise, other ENT: negative: Ear Pain, Ear Discharge, Nose Pain, Nose Discharge, Nose Congestion, Mouth Pain, Mouth Swelling, Throat Pain, Throat Swelling, Other Respiratory: Cough. negative: Dry, Shortness of Breath, Hemoptysis, SOB with Excertion, Pleuritic Pain, Sputum, Wheezing Cardiovascular: negative: chest pain, palpitations, orthopnea, paroxysmal nocturnal dyspnea, edema, light headedness, other Gastrointestinal: negative: Nausea, Vomiting, Abdominal Pain, Diarrhea, Constipation, Melena, Hematochezia, Other Genitourinary: negative: Dysuria, Frequency, Incontinence, Hematuria, Retention , Other Musculoskeletal: negative: Neck Pain, Shoulder Pain, Arm Pain, Back Pain, Hand Pain, Leg Pain, Foot Pain, Other - Medications/Allergies Allergies/Adverse Reactions: Allergies Allergy/AdvReac Type Severity Reaction Status Date / Time Penicillins Allergy Verified 08/21/15 20:39 propoxyphene Allergy Verified 08/21/15 20:39 ranolazine [From Ranexa] Allergy Verified 08/09/16 12:41 Sulfa (Sulfonamide Allergy Verified 08/21/15 20:39 Antibiotics) dextromethorphan AdvReac Unknown Verified 08/21/15 20:39 tramadol AdvReac Verified 08/21/15 20:39 Medications: Current Medications Acetaminophen (Tylenol) 650 mg PO Q4H PRN PRN Reason: Headache/Fever/Mild Pain (1-3) Hydrocodone Bitart/Acetaminophen ([place] 5/325) 1 tab PO Q4H PRN PRN Reason: Moderate Pain (4-6) Last Admin: 02/15/18 08:04 Dose: 1 tab Albuterol/Ipratropium (Duoneb) 3 ml NEB [id number] [facility] Last Admin: 02/15/18 07:13 Dose: Not Given Albuterol/Ipratropium (Duoneb) 3 ml NEB Q2H PRN PRN Reason: SOB &/or Wheezing Last Admin: 02/11/18 16:01 Dose: 3 ml Allopurinol (Zyloprim) 100 mg PO DAILY [facility] Last Admin: 02/15/18 08:06 Dose: 100 mg Aspirin (Aspirin Chewable) 81 mg PO DAILY [facility] Last Admin: 02/15/18 08:06 Dose: 81 mg Bisacodyl (Dulcolax) 10 mg PO DAILYPRN PRN PRN Reason: Constipation Bisacodyl (Dulcolax) 10 mg CO DAILYPRN PRN PRN Reason: Constipation Calcium Carbonate (Tums) 1,000 mg PO Q4H PRN PRN Reason: Heartburn or Indigestion Carvedilol (Coreg) 6.25 mg PO BID-[facility] Last Admin: 02/15/18 08:06 Dose: 6.25 mg Cholecalciferol (Vitamin D3) 1,000 units PO DAILY [facility] Last Admin: 02/15/18 08:07 Dose: 1,000 units Clonazepam (Klonopin) 0.5 mg PO BID PRN PRN Reason: Anxiety Last Admin: 02/14/18 14:02 Dose: 0.5 mg Clopidogrel Bisulfate (Plavix) 75 mg PO DAILY [facility] Last Admin: 02/15/18 08:07 Dose: 75 mg Enoxaparin Sodium (Lovenox) 40 mg SC 2100 [facility] Last Admin: 02/14/18 20:55 Dose: 40 mg Famotidine (Pepcid) 20 mg PO BID [facility] Last Admin: 02/15/18 08:08 Dose: 20 mg Ferrous Sulfate (Feosol) 325 mg PO QAM-[facility] Last Admin: 02/15/18 08:06 Dose: 325 mg Furosemide (Lasix) 40 mg PO DAILY-AC [facility] Last Admin: 02/15/18 08:06 Dose: 40 mg Guaifenesin (Mucinex) 600 mg PO Q12HR [facility] Last Admin: 02/15/18 08:08 Dose: 600 mg Guaifenesin/Codeine Phosphate (Robitussin Ac) 5 ml PO Q4H PRN PRN Reason: Cough Last Admin: 02/14/18 20:53 Dose: 5 ml Levofloxacin 750 mg/ Device 150 mls @ 100 mls/hr IVPB 1100 [facility] Last Admin: 02/14/18 12:47 Dose: 150 mls Loperamide HCl (Imodium) 2 mg PO PRN PRN PRN Reason: Diarrhea/Loose Stools Last Admin: 02/14/18 23:54 Dose: 2 mg Lubiprostone (Amitiza) 8 mcg PO BID- PRN PRN Reason: Constipation Mometasone Furoate/Formoterol Fumar (Dulera 200 Mcg/5 Mcg Inhaler) 2 puff INH BID-RT [facility] Last Admin: 02/14/18 18:48 Dose: 2 puff Ondansetron HCl (Zofran Odt) 4 mg PO Q6H PRN PRN Reason: Nausea/Vomiting Last Admin: 02/13/18 08:16 Dose: 4 mg Ondansetron HCl (Zofran) 4 mg IVP Q6H PRN PRN Reason: Nausea/Vomiting Potassium Chloride (K-Dur) 40 meq PO BID-[facility] Prednisone (Prednisone) 20 mg PO QAM-[facility] Last Admin: 02/15/18 08:06 Dose: 20 mg Pregabalin (Lyrica) 25 mg PO BID [facility] Last Admin: 02/14/18 20:54 Dose: 25 mg Rosuvastatin Calcium (Crestor) 40 mg PO [facility] Last Admin: 02/14/18 20:53 Dose: 40 mg Senna/Docusate Sodium (Senokot S) 2 tab PO BIDPRN PRN PRN Reason: Constipation Sertraline HCl (Zoloft) 150 mg PO DAILY [facility] Last Admin: 02/15/18 08:07 Dose: 150 mg Sodium Chloride (Flush - Normal Saline) 10 ml IVF Q12HR [facility] Last Admin: 02/15/18 08:08 Dose: 10 ml Sodium Chloride (Flush - Normal Saline) 10 ml IVF PRN PRN PRN Reason: Saline Flush Last Admin: 02/14/18 12:48 Dose: 10 ml Tizanidine HCl (Zanaflex) 4 mg PO BIDPRN PRN PRN Reason: Muscle Spasm Last Admin: 02/14/18 23:55 Dose: 4 mg Zolpidem Tartrate (Ambien) 5 mg PO HSPRN PRN PRN Reason: Insomnia
[2018-02-15] MEDS: guaiFENesin/Codeine Phosphate 200 mg/20 mg 10 ml UD Cup PO PRN ×2 (09:57→16:11)
[2018-02-15] MEDS: Pregabalin 25 MG CAP PO SCH ×2 (09:58→20:29)
[2018-02-15] MEDS: Ondansetron ODT 4 MG TAB PO PRN (11:38)
[2018-02-15] MEDS: Mometasone/Formoterol 120 PUFF INHALER INH SCH ×2 (12:12→19:04)
[2018-02-15] MEDS: Loperamide HCl 2 MG CAP PO PRN (13:20)
[2018-02-15] MEDS: tiZANidine HCl 4 MG TAB PO PRN (17:54)
[2018-02-15] MEDS: Potassium Chloride 20 MEQ TAB PO SCH (17:54)
[2018-02-15] MEDS: Enoxaparin Sodium 40 MG/0.4 ML SYRINGE SC SCH (20:28)
[2018-02-15] MEDS: Rosuvastatin 20 MG TAB PO SCH (20:28)
[2018-02-15] MEDS: clonazePAM 0.5 MG TAB PO PRN (20:36)
[2018-02-16] MEDS: HYDROcodone/Acetaminophen 5/325 mg Tablet PO PRN ×2 (01:56→10:51)
[2018-02-16] MEDS: Mometasone/Formoterol 120 PUFF INHALER INH SCH (07:02)
[2018-02-16 08:24] VITALS: BP 102/56; TEMP 97.5
--- NOTE | 2018-02-16 10:20 | PRG ---
DATE OF SERVICE: 02/16/2018 SUBJECTIVE: This morning, she is better. She denies shortness of breath. Less cough. OBJECTIVE: VITAL SIGNS: Saturations are 99% on room air, respirations 16, temperature 97, pulse 69, and blood pressure 102/56. CHEST: No wheezing or crackles. CARDIAC: Normal S1 and S2. No gallop or mass. IMPRESSION: end stage, chronic obstructive pulmonary disease, ongoing tobacco abuse, supraventricular tachycardia. PLAN: She will be discharged home. Follow up with her primary care physician. can see me in about a month. Job ID: [id number] MTDD
[2018-02-16] MEDS: Allopurinol 100 MG TAB PO SCH (10:43)
[2018-02-16] MEDS: Potassium Chloride 20 MEQ TAB PO SCH (10:43)
[2018-02-16] MEDS: predniSONE 20 MG TAB PO SCH (10:44)
[2018-02-16] MEDS: guaiFENesin ER 600 MG TAB PO SCH (10:44)
[2018-02-16] MEDS: Ferrous Sulfate 325 MG TAB PO SCH (10:44)
[2018-02-16] MEDS: Famotidine 20 MG TAB PO SCH (10:44)
[2018-02-16] MEDS: Furosemide 40 MG TAB PO SCH (10:44)
[2018-02-16] MEDS: Clopidogrel Bisulfate 75 MG TAB PO SCH (10:45)
[2018-02-16] MEDS: Carvedilol 6.25 MG TAB PO SCH (10:45)
[2018-02-16] MEDS: Pregabalin 25 MG CAP PO SCH (10:45)
--- NOTE | 2018-02-16 11:25 | PDOC.PN ---
- Subjective Encounter Start Date: 02/16/18 Encounter Start Time: 09:30 Patient seen and examined. No new complaints. No overnight events - Objective Resuscitation Status - Order Detail: 02/11/18 08:24 Resuscitation Status Routine Resuscitation Status: FULL: Full Resuscitation MAR Reviewed: Yes Vital Signs & Weight: Vital Signs (12 hours) Temp Pulse Resp BP BP Pulse Ox 02/16/18 07:35 97.5 F L 69 16 102/56 L 99 02/16/18 07:04 77 16 100 02/16/18 07:02 67 16 100 02/16/18 04:00 97.9 F 66 20 117/71 98 Weight Weight 144 lb 12.8 oz I&O: 02/15/18 02/16/18 02/17/18 06:59 06:59 06:59 Intake Total 490 1010 Output Total 1200 350 Balance -710 660 Result Diagrams: 02/14/18 05:59 02/15/18 08:05 EKG Reviewed by me: Yes (nsr) Phys Exam - Physical Examination Constitutional: NAD HEENT: PERRLA, moist MMs, sclera anicteric Neck: no JVD, supple Respiratory: no wheezing, no rales, no rhonchi Cardiovascular: RRR, no significant murmur, no rub Gastrointestinal: soft, non-tender, no distention, positive bowel sounds Musculoskeletal: no edema, pulses present Neurological: non-focal, normal sensation, moves all 4 limbs Psychiatric: normal affect, A&O x 3 Skin: no rash, normal turgor Dx/Plan (1) Acute on chronic diastolic ACC/AHA stage C congestive heart failure Code(s): I50.33 - ACUTE ON CHRONIC DIASTOLIC (CONGESTIVE) HEART FAILURE Status : Acute Comment: continue lasix (2) COPD exacerbation Code(s): J44.1 - CHRONIC OBSTRUCTIVE PULMONARY DISEASE W (ACUTE) EXACERBATION Status: Acute Comment: currently on optimum medical therapy (3) Elevated troponin Code(s): R74.8 - ABNORMAL LEVELS OF OTHER SERUM ENZYMES Status: Acute Comment: demand ischemia (4) Hyperuricemia Code(s): E79.0 - HYPERURICEMIA W/O SIGNS OF INFLAM ARTHRIT AND TOPHACEOUS DIS Status: Acute Comment: on allopurinol (5) Hypokalemia Code(s): E87.6 - HYPOKALEMIA Status: Acute (6) Left lower lobe pneumonia Code(s): J18.1 - LOBAR PNEUMONIA, UNSPECIFIED ORGANISM Status: Acute Comment : on levaquin (7) Anemia, normocytic normochromic Code(s): D64.9 - ANEMIA, UNSPECIFIED Status: Chronic (8) CAD (coronary artery disease) Code(s): I25.10 - ATHSCL HEART DISEASE OF [place] CORONARY ARTERY W/O ANG PCTRS Status: Chronic Qualifiers: Coronary Disease-Associated Artery/Lesion type: bypass graft Associated angina: with unstable angina (9) Chronic pain Code(s): G89.29 - OTHER CHRONIC PAIN Status: Chronic (10) Colles' fracture of right radius Code(s): S52.531A - COLLES' FRACTURE OF RIGHT RADIUS, INIT FOR CLOS FX Status : Chronic (11) Hypertension Code(s): I10 - ESSENTIAL (PRIMARY) HYPERTENSION Status: Chronic Qualifiers: Hypertension type: essential hypertension Qualified Code(s): I10 - Essential (primary) hypertension (12) Moderate tricuspid regurgitation by prior echocardiogram Code(s): I07.1 - RHEUMATIC TRICUSPID INSUFFICIENCY Status: Chronic (13) Pulmonary hypertension Code(s): I27.20 - PULMONARY HYPERTENSION, UNSPECIFIED Status: Chronic (14) Tobacco abuse Code(s): Z72.0 - TOBACCO USE Status: Chronic - Plan cont current plan of care, continue antibiotics, respiratory therapy * medication reviewed as below * symptomatic treatment * see discharge summery. Review of Systems - Review of Systems ENT: negative: Ear Pain, Ear Discharge, Nose Pain, Nose Discharge, Nose Congestion, Mouth Pain, Mouth Swelling, Throat Pain, Throat Swelling, Other Respiratory: negative: Cough, Dry, Shortness of Breath, Hemoptysis, SOB with Excertion, Pleuritic Pain, Sputum, Wheezing Cardiovascular: negative: chest pain, palpitations, orthopnea, paroxysmal nocturnal dyspnea, edema, light headedness, other Gastrointestinal: negative: Nausea, Vomiting, Abdominal Pain, Diarrhea, Constipation, Melena, Hematochezia, Other Genitourinary: negative: Dysuria, Frequency, Incontinence, Hematuria, Retention , Other Musculoskeletal: negative: Neck Pain, Shoulder Pain, Arm Pain, Back Pain, Hand Pain, Leg Pain, Foot Pain, Other Skin: negative: Rash, Lesions, Ronal, Bruising, Other - Medications/Allergies Allergies/Adverse Reactions: Allergies Allergy/AdvReac Type Severity Reaction Status Date / Time Penicillins Allergy Verified 08/21/15 20:39 propoxyphene Allergy Verified 08/21/15 20:39 ranolazine [From Ranexa] Allergy Verified 08/09/16 12:41 Sulfa (Sulfonamide Allergy Verified 08/21/15 20:39 Antibiotics) dextromethorphan AdvReac Unknown Verified 08/21/15 20:39 tramadol AdvReac Verified 08/21/15 20:39 Medications: Current Medications Acetaminophen (Tylenol) 650 mg PO Q4H PRN PRN Reason: Headache/Fever/Mild Pain (1-3) Hydrocodone Bitart/Acetaminophen ([place] 5/325) 1 tab PO Q4H PRN PRN Reason: Moderate Pain (4-6) Last Admin: 02/16/18 10:51 Dose: 1 tab Albuterol/Ipratropium (Duoneb) 3 ml NEB [id number] [facility] Last Admin: 02/16/18 07:04 Dose: 3 ml Albuterol/Ipratropium (Duoneb) 3 ml NEB Q2H PRN PRN Reason: SOB &/or Wheezing Last Admin: 02/11/18 16:01 Dose: 3 ml Allopurinol (Zyloprim) 100 mg PO DAILY [facility] Last Admin: 02/16/18 10:43 Dose: 100 mg Aspirin (Aspirin Chewable) 81 mg PO DAILY [facility] Last Admin: 02/16/18 10:43 Dose: 81 mg Bisacodyl (Dulcolax) 10 mg PO DAILYPRN PRN PRN Reason: Constipation Bisacodyl (Dulcolax) 10 mg NM DAILYPRN PRN PRN Reason: Constipation Calcium Carbonate (Tums) 1,000 mg PO Q4H PRN PRN Reason: Heartburn or Indigestion Carvedilol (Coreg) 6.25 mg PO BID-[facility] Last Admin: 02/16/18 10:45 Dose: 6.25 mg Cholecalciferol (Vitamin D3) 1,000 units PO DAILY [facility] Last Admin: 02/16/18 10:43 Dose: 1,000 units Clonazepam (Klonopin) 0.5 mg PO BID PRN PRN Reason: Anxiety Last Admin: 02/15/18 20:36 Dose: 0.5 mg Clopidogrel Bisulfate (Plavix) 75 mg PO DAILY [facility] Last Admin: 02/16/18 10:45 Dose: 75 mg Enoxaparin Sodium (Lovenox) 40 mg SC 2100 [facility] Last Admin: 02/15/18 20:28 Dose: 40 mg Famotidine (Pepcid) 20 mg PO BID [facility] Last Admin: 02/16/18 10:44 Dose: 20 mg Ferrous Sulfate (Feosol) 325 mg PO QAM-WM [facility] Last Admin: 02/16/18 10:44 Dose: 325 mg Furosemide (Lasix) 40 mg PO DAILY-AC [facility] Last Admin: 02/16/18 10:44 Dose: 40 mg Guaifenesin (Mucinex) 600 mg PO Q12HR [facility] Last Admin: 02/16/18 10:44 Dose: 600 mg Guaifenesin/Codeine Phosphate (Robitussin Ac) 5 ml PO Q4H PRN PRN Reason: Cough Last Admin: 02/15/18 16:11 Dose: 5 ml Levofloxacin (Levaquin) 750 mg PO 1100 [facility] Last Admin: 02/16/18 10:44 Dose: 750 mg Loperamide HCl (Imodium) 2 mg PO PRN PRN PRN Reason: Diarrhea/Loose Stools Last Admin: 02/15/18 13:20 Dose: 2 mg Lubiprostone (Amitiza) 8 mcg PO BID- PRN PRN Reason: Constipation Mometasone Furoate/Formoterol Fumar (Dulera 200 Mcg/5 Mcg Inhaler) 2 puff INH BID-RT [facility] Last Admin: 02/16/18 07:02 Dose: 2 puff Ondansetron HCl (Zofran Odt) 4 mg PO Q6H PRN PRN Reason: Nausea/Vomiting Last Admin: 02/15/18 11:38 Dose: 4 mg Ondansetron HCl (Zofran) 4 mg IVP Q6H PRN PRN Reason: Nausea/Vomiting Prednisone (Prednisone) 20 mg PO QAM-[facility] Last Admin: 02/16/18 10:44 Dose: 20 mg Pregabalin (Lyrica) 25 mg PO BID [facility] Last Admin: 02/16/18 10:45 Dose: Not Given Rosuvastatin Calcium (Crestor) 40 mg PO HS [facility] Last Admin: 02/15/18 20:28 Dose: 40 mg Senna/Docusate Sodium (Senokot S) 2 tab PO BIDPRN PRN PRN Reason: Constipation Sertraline HCl (Zoloft) 150 mg PO DAILY [facility] Last Admin: 02/16/18 10:41 Dose: 150 mg Sodium Chloride (Flush - Normal Saline) 10 ml IVF Q12HR [facility] Last Admin: 02/16/18 10:45 Dose: 10 ml Sodium Chloride (Flush - Normal Saline) 10 ml IVF PRN PRN PRN Reason: Saline Flush Last Admin: 02/15/18 11:39 Dose: 10 ml Tizanidine HCl (Zanaflex) 4 mg PO BIDPRN PRN PRN Reason: Muscle Spasm Last Admin: 02/15/18 17:54 Dose: 4 mg Zolpidem Tartrate (Ambien) 5 mg PO HSPRN PRN PRN Reason: Insomnia
--- NOTE | 2018-02-16 13:05 | DIS ---
DATE OF ADMISSION: 02/10/2018 DATE OF DISCHARGE: 02/16/2018 PRIMARY CARE PHYSICIAN: Cecil Gaytan MD DISCHARGE DISPOSITION: Home. PRIMARY DISCHARGE DIAGNOSES: 1. [id number] stage C diastolic congestive heart failure. 2. Chronic obstructive pulmonary disease exacerbation. 3. Elevated troponin due to demand ischemia. 4. Hyperuricemia. 5. Left lower lobe community-acquired pneumonia. 6. Hypokalemia. SECONDARY DISCHARGE DIAGNOSES: Tobacco abuse disorder, pulmonary hypertension, moderate tricuspid regurgitation, hypertension, right radius fracture, chronic pain disorder, coronary artery disease, normocytic normochromic anemia, chronic obstructive pulmonary disease, chronic respiratory failure with home oxygen therapy, chronic diastolic heart failure. PRIMARY PROCEDURE/OPERATION: None. RADIOLOGICAL INVESTIGATION: The patient had CT angiography, was negative for PE, which showed left lower lobe infiltration. Wrist x-ray was unremarkable. SIGNIFICANT LABORATORY DATA: WBC 5.2, hemoglobin 11.6, platelets 337. D-dimer 0.92. Sodium 140, potassium 3.3, BUN 22, creatinine 1.13, calcium 8.9. BNP 488.1. DISCHARGE MEDICATIONS: 1. ProAir HFA two puffs q.4 hourly p.r.n. 2. Tylenol No. 3 one or two tablets q.6 hourly p.r.n. 3. Zofran 8 mg q.8 hourly p.r.n. 4. Amitiza 8 mcg p.o. b.i.d. 5. Tessalon 100 mg p.o. t.i.d. p.r.n. 6. Coreg 6.25 mg p.o. b.i.d. 7. Clonazepam 0.5 mg p.o. b.i.d. 8. Nexium 40 mg p.o. daily. 9. Duragesic patch 50 mcg every three days. 10. Advair inhalation b.i.d. 11. Lasix 20 mg p.o. daily. 12. Lyrica 100 mg t.i.d. 13. Crestor 40 mg p.o. at bedtime. 14. Zoloft 150 mg p.o. daily. 15. Spiriva 18 mcg inhalation daily. 16. Zanaflex 4 mg t.i.d. p.r.n. 17. Aspirin 81 mg p.o. daily. 18. Plavix 75 mg p.o. daily. 19. Ambien 5 mg p.o. at bedtime p.r.n. 20. Prednisone 20 mg p.o. daily for 7 days. 21. Dulera two puffs inhalation b.i.d. for one inhaler. 22. Levaquin 750 mg p.o. daily for 5 more days. CONTRAINDICATION: None. CODE STATUS: Full code. INPATIENT CONSULTANTS: Dr. Elizabeth was consulted while in the hospital. Cardiology was also consulted while in the hospital. Orthopedic group was consulted while in the hospital. TEST RESULTS PENDING ON DISCHARGE: none. ALLERGIES: PENICILLIN, PROPOXYPHENE, AND RANEXA. DISCHARGE PLAN: Posthospital, the patient will follow up with Dr. Cecil Gaytan on 02/23/2018. The patient has appointment with Dr. Willis on 02/26/2018. The patient will follow up with Dr. Renard Weinberg as instructed. HOSPITAL COURSE: A 62-year-old female with above-mentioned medical problem, who was admitted by me. Please see my HPI for further details. On admission, the patient was in respiratory distress. She was having [id number] respiratory failure. The patient was also having diastolic heart failure. She was admitted to telemetry floor. She was treated with oxygen, DuoNeb therapy, empiric antibiotic therapy, and Solu-Medrol. The patient was also treated with IV Lasix. Cardiology was consulted for elevated troponin. Pulmonary group was consulted for COPD exacerbation. While in hospital, the patient was also evaluated by Orthopedic group for her right wrist recent fracture. They recommended conservative therapy. Initially, the patient was very weak and we decided to send her to [facility], but the patient later on changed her mind to go to swing bed. Now, the patient decided to go home. The patient is continuously high risk for recurrent admission. The patient is seen and examined at bedside today. All the medication prescription given to her. Job ID: [id number]
== END 2018-02-16 12:35 | disposition home health service (06) | DRG 280 ==
LOC: ERS 22:13 → ERHOLD 22:49 → 2NO 02-11 00:32
PROVIDERS: ADMIT Internal Medicine; ATTEND Internal Medicine
DX: I11.0 Hypertensive heart disease with heart failure (principal); I21.4 Non-ST elevation (NSTEMI) myocardial infarction; J18.1 Lobar pneumonia, unspecified organism; J96.00 Acute respiratory failure, unspecified whether with hypoxia or hypercapnia; J44.1 Chronic obstructive pulmonary disease with (acute) exacerbation; J44.0 Chronic obstructive pulmonary disease with (acute) lower respiratory infection; I50.33 Acute on chronic diastolic (congestive) heart failure; I25.110 Atherosclerotic heart disease of native coronary artery with unstable angina pectoris; F17.210 Nicotine dependence, cigarettes, uncomplicated; F41.9 Anxiety disorder, unspecified; F32.9 Major depressive disorder, single episode, unspecified; E87.6 Hypokalemia; E79.0 Hyperuricemia without signs of inflammatory arthritis and tophaceous disease; D64.9 Anemia, unspecified; G89.29 Other chronic pain; I07.1 Rheumatic tricuspid insufficiency; I27.20 Pulmonary hypertension, unspecified; J20.9 Acute bronchitis, unspecified; Z99.81 Dependence on supplemental oxygen; Z88.0 Allergy status to penicillin; Z88.2 Allergy status to sulfonamides; Z88.8 Allergy status to other drugs, medicaments and biological substances; Z79.82 Long term (current) use of aspirin; Z79.02 Long term (current) use of antithrombotics/antiplatelets; Z95.1 Presence of aortocoronary bypass graft
CPT/HCPCS: 36415; 71275; 80048; 80053; 80061; 83735; 83880; 84443; 84484; 84550; 85025; 85379; 90471; 90732; 94060; 94640; 94664; 94727; 94729; 94760; 96365; 96372; 96374; 96375; G0009; G8978-GP-CM; G8979-GP-CK; G8987-GO-CK; G8988-GO-CI; J1650; J1940; J1956; J2405; J2920; J7506; J7620; Q0162

== ENCOUNTER 2020-03-06 06:47 | Inpatient (IN) | payer MEDICARE, MEDICAID ==
[2020-03-06] MEDS ORDERED: Senokot S 8.6-50 MG TAB PO PRN (08:09)
[2020-03-06 08:13] LABS: CKMB 3.7 ng/mL (0-6.6)
[2020-03-06] MEDS ORDERED: Non-Formulary Item 1 EACH (Albuterol Sulfate [Proair Hfa] 8.5 GM Hfa.Aer.Ad) INH PRN (08:30)
[2020-03-06] MEDS ORDERED: Non-Formulary Item 1 EACH (Tiotropium [Spiriva Handihaler] 18 MCG Box) INH SCH (09:00)
[2020-03-06] MEDS ORDERED: SALMETEROL INH SCH (09:00)
[2020-03-06] MEDS ORDERED: [UNRECOGNIZED DRUG - OTHER] INH SCH (09:00)
[2020-03-06] MEDS ORDERED: FLUTICASONE INH SCH (09:00)
[2020-03-06] MEDS ORDERED: PROVENTIL INHALER 6.7 G (200 INHALATIONS) INH PRN (09:42)
[2020-03-06] MEDS: Famotidine 20 MG TAB PO SCH ×2 (09:48→21:34)
[2020-03-06] MEDS ORDERED: Benzonatate 100 MG CAP PO PRN (10:41)
[2020-03-06] MEDS ORDERED: Non-Formulary Item 1 EACH (Zolpidem Tartrate [Ambien] 10 MG Tablet) PO PRN (10:41)
[2020-03-06 11:03] LABS: Troponin I 0.036 ng/mL (< 0.028)
[2020-03-06] MEDS ORDERED: Zolpidem Tartrate 5 MG TAB PO PRN (11:13)
--- NOTE | 2020-03-06 11:49 | HP ---
PRIMARY CARE PHYSICIAN: Cecil Gaytan MD. BINDING DYER: Jay Willis MD. HOUSE DECORATOR: Zion Elizabeth MD. HISTORY OF PRESENT ILLNESS: Ms. Shoemaker is a 64-year-old female who reported to the emergency room in [place] today after complaining of a worsening shortness of breath over the last week. She does have a history of COPD, congestive heart failure as well as coronary artery disease. She reports worsening shortness of breath, dyspnea on exertion, and orthopnea. She has oxygen at home, uses 2 L which is her baseline but reports that she has had to use it more often over the last week than she normally does. She reports that she normally wears it at night. Reports that her ex- came over to her house over a week ago, was complaining of some shortness of breath, so she loaned him her normal O2 and she switched to her portable. She is not sure if she ran out of oxygen in the portable, but she was having increasing shortness of breath and switched back to her regular oxygen tank and was able to get some relief after about 2 hours. She reports since that time she has had worsening shortness of breath and is unable to go to the bathroom from her living room without having to stop and catch her breath. She reports some intermittent chest pain and some intermittent lower abdominal pain, but denies either of those things currently. She was evaluated in the emergency room at [place], noted to have some inverted T-waves in the anterolateral leads and an indeterminate troponin at 0.033 with a BNP greater than her baseline at . The emergency room gave her some Lasix, Lovenox, aspirin, and some Decadron, and she reports here that she does feel better. She sees Dr. Willis on an outpatient basis. The last echocardiogram we have on record is from 2018. At that time, she had an EF of 55% to 60%, grade 1/3 diastolic dysfunction, some inferior hypokinesis. She also had a cath done which showed an occluded RCA and severe LAD disease. Does have a stent in the proximal . She did have a coronary artery bypass x4 vessels in 2012. She does continue to smoke. She reports that she smokes less than half a pack a day and she has tried to wean herself off and reports that with this increased shortness of breath she does not feel like smoking as much. The patient was transferred to the emergency room at [facility] in [place] and then admitted to telemetry for further management. PAST MEDICAL HISTORY: Coronary artery disease, CABG in the past x5 vessels, congestive heart failure, hypertension, COPD. PAST SURGICAL HISTORY: CABG x5 in 2013, tubal ligation, spinal surgery to low back, left eye surgery x5, right elbow surgery, cholecystectomy, hysterectomy, tonsillectomy, has had a left corneal transplant. PSYCHIATRIC HISTORY: Anxiety and depression. SOCIAL HISTORY: Lives at home by herself. Denies any alcohol or drug use. Is a tobacco smoker, smokes less than half a pack a day. KNOWN ALLERGIES: Darvocet, dextromethorphan, penicillins, propoxyphene, Ranexa, sulfa, tramadol. CURRENT MEDICATIONS: 1. Lyrica 100 mg p.o. t.i.d. 2. Ambien 5 mg p.o. once a day. 3. Spiriva 2 puffs once a day. 4. Coreg 6.25 mg p.o. b.i.d. 5. Lasix 20 mg p.o. once a day, reports that she does take 40 mg though when she is feeling edematous or short of breath. 6. Tizanidine 4 mg 1-2 tabs 1-3 times per day. 7. Aspirin 81 mg p.o. daily. 8. Albuterol HFA 2 puffs q.4 hours as needed. 9. Crestor 40 mg p.o. once a day. 10. Nexium 20 mg p.o. once a day. 11. Sertraline 150 mg p.o. once a day. 12. Advair 500-50 mcg 1 puff daily. 13. Potassium chloride 20 mEq 2 tabs once a day. 14. Losartan 100 mg p.o. once a day. 15. Clindamycin 150 mg p.o. daily. REVIEW OF SYSTEMS: The patient denies chills or fever. Denies any vision changes. Reports intermittent chest pain. Reports some edema. Reports shortness of breath. Reports a has dry cough. She denies any wheezing. She reports orthopnea. Reports dyspnea on exertion. GI: Reports some intermittent lower abdominal pain. Denies any nausea, vomiting, diarrhea. MUSCULOSKELETAL: Denies any new myalgias. All systems are reviewed and are negative unless mentioned above in HPI. PHYSICAL EXAMINATION: VITAL SIGNS: Temp is 97.8, pulse is 75, respiratory rate is 20, pO2 sats are 98% on 2 L nasal cannula, blood pressure is 126/75. CONSTITUTIONAL: The patient appears nontoxic. She is alert and oriented to person, place, and time. HEENT: Head is atraumatic and normocephalic. Eyes: Pupils are equally round and reactive. Extraocular muscles are intact. ENT: Mouth exam is normal. Mucous membranes are moist. NECK: Normal range of motion. Trachea is midline. RESPIRATORY/CHEST: She has some rhonchi which clears with cough. Chest expansion is equal. CARDIOVASCULAR: Regular rate and rhythm. Heart sounds are normal. ABDOMEN: Nontender. Bowel sounds are heard. EXTREMITIES: Upper extremities: Radial pulse is normal. Normal range of motion. Normal strength. Lower extremities: Pedal pulses are normal. Range of motion is normal. NEURO: The patient is oriented to person, place, and time. Speech is normal. SKIN: Warm, dry, and normal in color. EKG interpretation in the emergency room is normal sinus rhythm, beats per minute 87, normal axis, T-wave inversion in anterolateral leads. No ST elevation or depression. PLAN/ASSESSMENT: 1. Congestive heart failure exacerbation. We will obtain an echocardiogram. We are going to trend troponins. Fasting lipid and TSH. Dr. Willis is on-call today. She sees Dr. Willis as an outpatient. We have asked him to consult. Lasix 80 mg given in the emergency room in [place]. We will continue the 40 mg IV push daily. 2. History of chronic obstructive pulmonary disease. Continue her home inhaler regimen. We will monitor. 3. History of hypertension. We will restart her home medications. 4. History of tobacco smoking. Cessation counseling has been given. 5. Deep venous thrombosis and gastrointestinal prophylaxis started. 6. Case discussed with Dr. Hope who agrees with plan. 7. Hospital course dependent on clinical findings. Job ID: [id number]
[2020-03-06] MEDS: Ipratropium Bromide 2.5 ml Neb NEB SCH ×3 (13:03→23:45)
[2020-03-06 14:14] LABS: Troponin I 0.024 ng/mL (< 0.028)
[2020-03-06] MEDS ORDERED: Non-Formulary Item 1 EACH (Pregabalin [Lyrica] 100 MG Cap) PO SCH (15:00)
[2020-03-06] MEDS: Pregabalin 50 MG CAP PO SCH ×2 (15:01→21:35)
--- NOTE | 2020-03-06 16:34 | CON ---
DATE OF CONSULTATION: HISTORY OF PRESENT ILLNESS: The patient is a 64-year-old woman who presents with increasing dyspnea. The patient has a long history of coronary artery disease. She had undergone previous several PTCA and stent placements. She subsequently underwent coronary artery bypass graft surgery x5 in 2014. She was readmitted in 08/2015 with COPD. The patient was seen in 07/2016. She underwent a repeat cardiac catheterization. She was found to have a severe decrease in left ventricular systolic function, estimated ejection fraction 10% to 15%. The patient had 5 patent coronary grafts. The patient presented with an acute myocardial infarction in 01/2018. She underwent a followup cardiac catheterization. She was found to have 80% left main and LAD lesion, 100% left circ, and 100% RCA lesion. The left internal mammary artery was a patent vessel. The saphenous vein graft to the ramus and obtuse marginal branch were patent. The saphenous vein graft to the right coronary artery had 100% occlusion in one branch, but had a patent anastomosis to the posterior descending artery. The patient was placed on medical therapy. The patient was advised to discontinue smoking. The patient has not been seen for cardiac followup recently. She states that she is having increasing dyspnea. She denies having any lower extremity swelling. The patient denies having any chest discomfort. PAST MEDICAL HISTORY: 1. Coronary artery disease. 2. Cardiomyopathy. 3. History of coronary artery bypass surgery. 4. COPD. 5. Hypertension. PAST SURGICAL HISTORY: 1. Cholecystectomy. 2. Hysterectomy. 3. Tonsillectomy. 4. Tubal ligation. 5. Spinal surgery. 6. Eye surgery. SOCIAL HISTORY: Long history of tobacco abuse. ALLERGIES: DARVOCET, RANEXA, PENICILLIN, PROPOXYPHENE, TRAMADOL, AND SULFA. MEDICATIONS: See nursing list. FAMILY HISTORY: There is a positive family history of coronary artery disease. REVIEW OF SYSTEMS: Ten-point systems noted for chronic back pain. PHYSICAL EXAMINATION: GENERAL: This is a middle-aged woman, in no acute distress. VITAL SIGNS: Blood pressure of 122/68. NECK: No jugular venous distention. LUNGS: Coarse breath sounds bilateral. No crackles. HEART: Regular rate and rhythm. Normal S1 and S2. ABDOMEN: Distended. EXTREMITIES: No edema. VASCULAR: Radial pulses 2+. LABORATORY DATA: White blood cell count 8.9, hemoglobin 12.1, hematocrit 36.7, and platelets 214. Sodium 141, potassium 3.9, chloride 108, bicarbonate 24, BUN 13, and creatinine 0.97. Troponin was 0.03 and BNP was 876. EKG normal sinus rhythm with T-wave abnormality, suggestive of ischemia. IMPRESSION: 1. Congestive heart failure. 2. History of coronary artery bypass surgery. 3. Hypertension. 4. Tobacco abuse. PLAN: This patient presents with recurrent dyspnea. Her BNP level is elevated, suggesting mild episode of congestive heart failure. We will check the patient's echocardiogram. We will follow this patient with you through her hospitalization. Job ID: [id number] MTDD
[2020-03-06] MEDS: Mometasone 200 MCG/Formoterol 5 MCG 120 PUFF INHALER INH SCH (19:03)
[2020-03-06] MEDS ORDERED: Non-Formulary Item 1 EACH (Rosuvastatin Calcium [Rosuvastatin Calcium] 40 MG Tablet) PO SCH (21:00)
[2020-03-06] MEDS: Rosuvastatin 20 MG TAB PO SCH (21:35)
[2020-03-06] MEDS: Carvedilol 6.25 MG TAB PO SCH (21:36)
[2020-03-06] MEDS: Acetaminophen/Codeine 30-300mg Tablet PO PRN (22:41)
[2020-03-07] MEDS: Acetaminophen 325 MG TAB PO PRN ×2 (03:12→11:51)
[2020-03-07] MEDS ORDERED: Ondansetron ODT 4 MG TAB PO SCH (03:45)
[2020-03-07 04:13] LABS: #Monocytes 0.8 thou/uL (0.11-0.59); #Neutrophils 6.6 thou/uL (1.40-6.50); %Basophils 0.3 % (0.0-1.0); %Eosinophils 0.2 % (0.0-10.0); %Lymphocytes 20.8 % (21.0-51.0); %Monocytes 8.6 % (0.0-10.0); %Neutrophils 70.1 % (42.0-75.0); Hemoglobin 14.1 g/dL (12.0-16.0); Mean Corpuscular HGB CONC 34.1 g/dL (32.0-36.0); Mean Corpuscular Hemoglobin 29.9 pg (27.0-31.0); Mean Corpuscular Volume 87.6 fL (78.0-98.0); Mean Platelet Volume 7.8 fL (7.4-10.4); Platelet Count 256 thou/uL (130-400); RBC Distribution Width 13.1 % (11.5-14.5); Red Blood Cell (RBC) Count 4.73 mill/uL (4.20-5.40); White Blood Cell (WBC) Count 9.4 thou/uL (4.8-10.8)
[2020-03-07 04:18] LABS: Anion Gap 17 mmol/L (10-20); BUN (Urea Nitrogen) 21 mg/dL (9.8-20.1); Calc. Creatinine Clearance 64 mL/min (70-130); Calcium 9.2 mg/dL (7.8-10.44); Carbon Dioxide 23 mmol/L (23-31); Chloride 103 mmol/L (98-107); Glucose 98 mg/dL (80-115); Potassium 4.3 mmol/L (3.5-5.1); Sodium 139 mmol/L (136-145)
[2020-03-07] MEDS: Acetaminophen/Codeine 30-300mg Tablet PO PRN ×3 (05:24→21:38)
[2020-03-07] MEDS: Mometasone 200 MCG/Formoterol 5 MCG 120 PUFF INHALER INH SCH ×2 (07:38→19:31)
[2020-03-07] MEDS: Ipratropium Bromide 2.5 ml Neb NEB SCH ×4 (07:39→23:12)
[2020-03-07] MEDS ORDERED: tiZANidine HCl 4 MG TAB PO PRN (08:38)
[2020-03-07] MEDS: Pregabalin 50 MG CAP PO SCH ×3 (09:29→21:39)
[2020-03-07] MEDS: Aspirin Chewable 81 MG TAB PO SCH (09:29)
[2020-03-07] MEDS: Carvedilol 6.25 MG TAB PO SCH ×2 (09:30→21:39)
[2020-03-07] MEDS: Famotidine 20 MG TAB PO SCH ×2 (09:30→21:39)
[2020-03-07] MEDS: Clopidogrel Bisulfate 75 MG TAB PO SCH (09:30)
[2020-03-07] MEDS: Furosemide 40 MG/4 ML VIAL SLOW IVP SCH (09:31)
[2020-03-07] MEDS: Enoxaparin Sodium 40 MG/0.4 ML SYRINGE SC SCH (09:31)
[2020-03-07] MEDS ORDERED: FLU VACC QS2020-21(6MOS UP)/PF 60 MCG/0.5 ML SYRINGE IM ONE (10:00)
--- NOTE | 2020-03-07 11:02 | PDOC.HOSPP ---
- Subjective Encounter Date: 03/07/20 Encounter Time: 08:45 Subjective: Patient examined today; reports trouble sleeping last night. Has chronic pain, better after Tylenol #3 restarted. Reports dyspnea has improved - Objective Vital Signs & Weight: Vital Signs (12 hours) Temp Pulse Resp BP Pulse Ox 03/07/20 08:00 97.6 F 72 17 106/56 L 96 03/07/20 07:43 98 03/07/20 07:39 76 16 98 03/07/20 07:38 78 16 98 03/07/20 04:00 98.2 F 68 17 119/63 92 L 03/06/20 23:45 72 16 100 Weight Weight 76.34 kg I&O: 03/06/20 03/07/20 03/08/20 06:59 06:59 06:59 Intake Total 480 Balance 480 Result Diagrams: 03/07/20 03:09 03/07/20 03:09 Hospitalist ROS - Review of Systems Constitutional: denies: fever, chills, sweats, weakness, malaise, other Eyes: denies: pain, vision change, conjunctivae inflammation, eyelid inflammation, redness, other ENT: denies: ear pain, ear discharge, nose pain, nose discharge, nose congestion, mouth pain, mouth swelling, throat pain, throat swelling, other Respiratory: reports: cough, shortness of breath, SOB with excertion (improving) Cardiovascular: reports: orthopnea. denies: chest pain Gastrointestinal: reports: nausea Musculoskeletal: reports: back pain Skin: denies: rash, lesions, fox, bruising, other Neurological: denies: weakness, numbness, incoordination, change in speech, confusion, seizures, other - Medication Medications: Active Medications Generic Name Dose Route Start Last Admin Trade Name Freq PRN Reason Stop Dose Admin Acetaminophen 650 mg 03/06/20 08:09 03/07/20 03:12 Acetaminophen 325 Mg Tab PO 650 mg Q4H PRN Administration Headache/Fever/Mild Pain (1-3) Acetaminophen/Codeine Phosphate 1 tab 03/06/20 22:24 03/07/20 05:24 Acetaminophen/Codeine 30-300mg Tablet PO 1 tab Q6HR PRN Administration Pain Aspirin 81 mg 03/07/20 09:00 03/07/20 09:29 Aspirin Chewable 81 Mg Tab PO 81 mg DAILY NEY Administration Carvedilol 6.25 mg 03/06/20 21:00 03/07/20 09:30 Carvedilol 6.25 Mg Tab PO 6.25 mg BID NEY Administration Clopidogrel Bisulfate 75 mg 03/07/20 09:00 03/07/20 09:30 Clopidogrel Bisulfate 75 Mg Tab PO 75 mg DAILY NEY Administration Enoxaparin Sodium 40 mg 03/07/20 09:00 03/07/20 09:31 Enoxaparin Sodium 40 Mg/0.4 Ml Syringe SC 40 mg 0900 NEY Administration Famotidine 20 mg 03/06/20 09:00 03/07/20 09:30 Famotidine 20 Mg Tab PO 20 mg BID NEY Administration Furosemide 40 mg 03/07/20 09:00 03/07/20 09:31 Furosemide 40 Mg/4 Ml Vial SLOW IVP 40 mg DAILY NEY Administration Ipratropium [place] 2.5 ml 03/06/20 13:00 03/07/20 07:39 Ipratropium [place] 2.5 Ml Neb NEB 2.5 ml [id number] NEY Administration Isosorbide Mononitrate 30 mg 03/07/20 09:00 03/07/20 09:30 Isosorbide Mononitrate Er 30 Mg Tab PO 30 mg DAILY NEY Administration Mometasone Furoate/Formoterol Fumar 2 puff 03/06/20 18:30 03/07/20 07:38 Mometasone 200 Mcg/Formoterol 5 Mcg 120 Puff Inhaler INH 2 puff BID-RT NEY Administration Pregabalin 100 mg 03/06/20 15:00 03/07/20 09:29 Pregabalin 50 Mg Cap PO 100 mg TID NEY Administration Rosuvastatin Calcium 40 mg 03/06/20 21:00 03/06/20 21:35 Rosuvastatin 20 Mg Tab PO 40 mg HS NEY Administration Sertraline HCl 150 mg 03/07/20 09:00 03/07/20 09:30 Sertraline Hcl 100 Mg Tab PO 150 mg DAILY NEY Administration - Exam General Appearance: awake alert Eye: PERRL ENT: normocephalic atraumatic Neck: supple, no lymphadenopathy Heart: RRR, normal peripheral pulses Respiratory: CTAB, normal chest expansion Gastrointestinal: soft, non-tender Extremities: no edema Skin: normal turgor Neurological: cranial nerve grossly intact Musculoskeletal: normal tone Psychiatric: normal affect, A&O x 3 Hosp A/P (1) Acute on chronic diastolic ACC/AHA stage C congestive heart failure Code(s): I50.33 - ACUTE ON CHRONIC DIASTOLIC (CONGESTIVE) HEART FAILURE Status: Acute (2) Elevated troponin Code(s): R74.8 - ABNORMAL LEVELS OF OTHER SERUM ENZYMES Status: Acute (3) CAD (coronary artery disease) Code(s): I25.10 - ATHSCL HEART DISEASE OF [place] CORONARY ARTERY W/O ANG PCTRS Status: Chronic Qualifiers: Coronary Disease-Associated Artery/Lesion type: bypass graft Associated angina: with unstable angina (4) Chronic pain Code(s): G89.29 - OTHER CHRONIC PAIN Status: Chronic (5) Hypertension Code(s): I10 - ESSENTIAL (PRIMARY) HYPERTENSION Status: Chronic Qualifiers: Hypertension type: essential hypertension Qualified Code(s): I10 - Essential (primary) hypertension (6) Tobacco abuse Code(s): Z72.0 - TOBACCO USE Status: Chronic - Plan #CHF - ECHO with 55-60% EF Continue lasix IVP Dr. Willis saw yesterday; patient mentioned he wanted Dr. Elizabeth to see on this hospitalization so a consult has been added. Patient with COPD and pulmonary hypertension #HTN- home meds restarted #chronic pain- home meds restarted #HLD- home meds started #chronic kidney disease- close to baseline, will continue to monitor #DVT prevention with lovenox; PUD prevention with pepcid #Most likely DC home in AM #Attending is Dr. Aguilar today
[2020-03-07 14:33] VITALS: BMI 28.0
--- NOTE | 2020-03-07 19:10 | CON ---
DATE OF CONSULTATION: 03/07/2020 CONSULTING PHYSICIAN: Curryist . REASON FOR CONSULTATION: COPD exacerbation. HISTORY OF PRESENT ILLNESS: This 64-year-old female, who is a patient of Dr. Noriega. She has severe COPD, systolic heart failure, and coronary artery disease. She presented to the hospital yesterday with increasing shortness of breath. She is continuing to smoke a pack a day. She is using albuterol and Advair at home. She was found to have an elevated BNP. She was given both steroids and Lasix and she says her breathing is better today. PAST MEDICAL HISTORY: As above. Also, she has coronary artery disease. PAST SURGICAL HISTORY: 1. Coronary artery bypass grafting surgery. 2. Tubal ligation. 3. Spinal surgery. 4. Right elbow surgery. 5. Cholecystectomy. 6. Hysterectomy. 7. Tonsillectomy. PSYCHIATRIC HISTORY: Remarkable for anxiety and depression. SOCIAL HISTORY: Lives at home by herself. Smokes a pack per day. ALLERGIES: DARVOCET, DEXTROMETHORPHAN, PENICILLINS, PROPOXYPHENE, RANEXA, SULFA, AND TRAMADOL. MEDICATIONS: Prior to admission, these were reviewed and are listed on the chart. Her pulmonary medications include; 1. Spiriva. 2. Advair. 3. Albuterol. 4. She is also on oxygen intermittently. REVIEW OF SYSTEMS: Twelve-point review of systems is otherwise negative. PHYSICAL EXAMINATION: VITAL SIGNS: Temperature 97.2, pulse 67, respirations 16, O2 saturation 97% on 2 L, and blood pressure 116/64. HEENT: Unremarkable. NECK: No adenopathy or JVD. LUNGS: Clear, but distant breath sounds. CARDIAC: S1 and S2. Regular. ABDOMEN: Soft. EXTREMITIES: No edema. LABORATORY DATA: White blood cell count 9.4, hematocrit 41, and platelet count 256. Sodium 139, potassium 4.3, BUN 21, creatinine 1.1, and glucose 98. An echocardiogram demonstrates EF 55% to 60% with diastolic dysfunction. Chest x-ray showed no mass, effusion, or infiltrate. ASSESSMENT: 1. Chronic obstructive pulmonary disease with exacerbation. 2. Tobacco abuse. PLAN: This patient should continue her current inhalers. Refrain from smoking and consider entering a pulmonary rehabilitation program as an outpatient. She seems at her baseline. She is appropriate for discharge. Please recall if further assistance needed. Job ID: [id number]
[2020-03-07] MEDS: Rosuvastatin 20 MG TAB PO SCH (21:38)
[2020-03-08] MEDS: Acetaminophen/Codeine 30-300mg Tablet PO PRN ×2 (04:29→14:12)
[2020-03-08] MEDS: Mometasone 200 MCG/Formoterol 5 MCG 120 PUFF INHALER INH SCH (07:28)
[2020-03-08] MEDS: Ipratropium Bromide 2.5 ml Neb NEB SCH ×2 (07:28→13:57)
[2020-03-08] MEDS: Clopidogrel Bisulfate 75 MG TAB PO SCH (07:50)
[2020-03-08] MEDS: Famotidine 20 MG TAB PO SCH (07:51)
[2020-03-08] MEDS: Pregabalin 50 MG CAP PO SCH ×2 (07:51→14:11)
[2020-03-08] MEDS: Carvedilol 6.25 MG TAB PO SCH (07:51)
[2020-03-08] MEDS: Aspirin Chewable 81 MG TAB PO SCH (07:52)
[2020-03-08] MEDS: Furosemide 40 MG/4 ML VIAL SLOW IVP SCH (07:53)
[2020-03-08] MEDS: Enoxaparin Sodium 40 MG/0.4 ML SYRINGE SC SCH (07:53)
[2020-03-08] MEDS ORDERED: Ondansetron PF 4 MG/2 ML Vial IVP PRN (11:44)
[2020-03-08] MEDS ORDERED: Ondansetron ODT 4 MG TAB PO PRN (11:44)
[2020-03-08 14:15] VITALS: BP 130/77; TEMP 97.4
[2020-03-09] MEDS ORDERED: Furosemide 40 MG TAB PO SCH (07:30)
--- NOTE | 2020-03-09 08:04 | PDOC.DS.DS ---
Provider - Provider Date of Admission: 03/07/20 14:44 Date of Discharge: 03/08/20 Admitting Provider: Jethro Hope MD Consultations: Cardiology, Pulmonary Primary Care Physician: Cecil Gaytan MD Course - Hospital Course Hospital Course: 64-year-old female with COPD with ongoing tobacco abuse presented to the emergency room with worsening shortness of breath of 1 week duration. Her work- up was consistent with COPD and diastolic HF exacerbation. She was monitored on the telemetry unit. She was started on O2 supplementation, nebulizer treatment diuretics and inhaled steroids patient was evaluated by cardiology and pulmonary. Echocardiogram showed ejection fraction of 55 to 60% with mildly enlarged right atrium, mildly enlarged right ventricle with diastolic dysfunction. There was also mild mitral regurgitation. Her chest x-ray showed changes consistent with COPD. Patient was extensively counseled on congestive heart failure and COPD.. Patient has been cleared by consultants for discharge Final diagnosis: Acute on chronic diastolic heart failure exacerbation COPD exacerbation Chronic respiratory failure on home oxygen Hypertension Ongoing tobacco dependence Anxiety Coronary artery disease s/p CABG CKD stage III Resuscitation Status: 03/06/20 10:42 Resuscitation Status Routine Co-Sign Provider: Resuscitation Status: FULL: Full Resuscitation Discussed with: Patient Additional comments: Olga, her d-i-l will be her surrogate decision maker. - Labs Lab Results: 03/07/20 03:09 03/07/20 03:09 - Physical Exam Vitals: Weight Admit Weight 169 lb 8 oz Weight 168 lb 8 oz Physical Exam: The patient was seen and examined on the day of discharge. Plan - Discharge Medications Prescriptions: Isosorbide Mononitrate [Imdur ER] 30 mg PO DAILY #30 tab Furosemide [Lasix] 40 mg PO DAILY-AC #30 tab Home Medications: Medication Instructions Recorded Confirmed Type Pregabalin [Lyrica] 100 mg PO TID 02/25/14 03/06/20 History Sertraline HCl [Zoloft] 150 mg PO DAILY 02/25/14 03/06/20 History Tiotropium [Spiriva Handihaler] 18 mcg INH DAILY 05/06/14 03/06/20 History Carvedilol [Coreg] 6.25 mg PO BID 08/21/15 03/06/20 History Acetaminophen With Codeine 1 - 2 tablet PO Q6HR PRN 08/22/15 03/06/20 History [Tylenol with Codeine #3] Esomeprazole Magnesium 1 cap PO DAILY 08/09/16 03/06/20 History tiZANidine HCl [Tizanidine HCl] 1 tab PO TID PRN 08/09/16 03/06/20 History Aspirin Chewable [Aspirin Chewable 81 mg PO DAILY #30 tab 08/11/16 03/06/20 Rx Tablet] Clopidogrel Bisulfate [Plavix] 75 mg PO DAILY #30 tab 08/11/16 03/06/20 Rx Albuterol Sulfate [Proair HFA] 2 puff INH Q4HR PRN 04/20/17 03/06/20 History Benzonatate [Tessalon] 100 mg PO TID PRN 04/20/17 03/06/20 History Rosuvastatin Calcium 40 mg PO HS 04/20/17 03/06/20 History Fluticasone/Salmeterol [Advair 1 puff INH BID 01/30/18 03/06/20 History Diskus 500/50] Zolpidem Tartrate [Ambien] 5 mg PO HS PRN 02/19/18 03/06/20 History Potassium Chloride [K-Dur] 40 meq PO QAM-WM #30 tab 02/24/18 03/06/20 Rx Cholecalciferol [Vitamin D3] 2,000 unit PO DAILY 03/07/20 03/07/20 History Ondansetron [Zofran ODT] 8 mg PO Q8HR 03/07/20 03/07/20 History Furosemide [Lasix] 40 mg PO DAILY-AC #30 tab 03/08/20 Rx Isosorbide Mononitrate [Imdur ER] 30 mg PO DAILY #30 tab 03/08/20 Rx Allergies: Penicillins Allergy (Verified 03/06/20 09:34) propoxyphene Allergy (Verified 03/06/20 09:34) ranolazine [From Ranexa] Allergy (Verified 03/06/20 09:34) Sulfa (Sulfonamide Antibiotics) Allergy (Verified 03/06/20 09:34) dextromethorphan Adverse Reaction (Unknown, Verified 03/06/20 09:34) NAUSEA tramadol Adverse Reaction (Verified 03/06/20 09:34) NAUSEA (FROM ER RECORD) - Discharge Instructions Discharge Instructions:: BMP after 2 weeks - PCP to arrange/follow Nourishment:: Fluid Restriction Diet (2000 ml) - Follow up Plan Referrals: Zion Elizabeth MD [Active] - 10 Days (Please follow up in 10 days. Consider possible outpt pulmonology rehab) Jay Willis MD [Active] - 10 Days (Please follow up with Dr Willis in 10 days. Call the office to schedule an appointment.) Cecil Gaytan MD [Primary Care Provider] - 7 Days (Please follow up with your primary care provider in a week. Call the office to schedule an appointment. Please have a BMP done in 2 weeks.) Disposition: HOME Quality - Care Measures CORE MEASURES:: N/A
== END 2020-03-08 15:58 | disposition home or self-care (01) | DRG 291 ==
LOC: ERS 06:47 → 2NO 07:36 → OBSVTOIN 03-07 14:44
PROVIDERS: ADMIT Internal Medicine; ATTEND Internal Medicine
DX: I13.0 Hypertensive heart and chronic kidney disease with heart failure and stage 1 through stage 4 chronic kidney disease, or unspecified chronic kidney disease (principal); I50.33 Acute on chronic diastolic (congestive) heart failure; J44.1 Chronic obstructive pulmonary disease with (acute) exacerbation; J96.10 Chronic respiratory failure, unspecified whether with hypoxia or hypercapnia; I27.20 Pulmonary hypertension, unspecified; F17.210 Nicotine dependence, cigarettes, uncomplicated; R74.8 Abnormal levels of other serum enzymes; G89.29 Other chronic pain; F41.9 Anxiety disorder, unspecified; E78.5 Hyperlipidemia, unspecified; N18.30 Chronic kidney disease, stage 3 unspecified; I25.10 Atherosclerotic heart disease of native coronary artery without angina pectoris; Z95.1 Presence of aortocoronary bypass graft; Z98.51 Tubal ligation status; Z90.49 Acquired absence of other specified parts of digestive tract; Z90.710 Acquired absence of both cervix and uterus; Z90.89 Acquired absence of other organs; Z88.2 Allergy status to sulfonamides; Z88.0 Allergy status to penicillin; Z88.8 Allergy status to other drugs, medicaments and biological substances; Z79.82 Long term (current) use of aspirin; Z79.899 Other long term (current) drug therapy; Z99.81 Dependence on supplemental oxygen
CPT/HCPCS: 36415; 80048; 82553; 85025; 90471; 90662; 93005; 93306; 94640; G0008; J1650; J1940; Q0162

== ENCOUNTER 2020-05-09 17:49 | Emergency (ER) | payer MEDICARE, MEDICAID ==
[2020-05-09 18:38] LABS: #Eosinphils 0.1 thou/uL (0.0-0.7); #Lymphocytes 1.5 thou/uL (1.20-3.40); #Monocytes 0.8 thou/uL (0.11-0.59); #Neutrophils 10.8 thou/uL (1.40-6.50); %Basophils 0.3 % (0.0-1.0); %Eosinophils 0.8 % (0.0-10.0); %Lymphocytes 11.6 % (21.0-51.0); %Monocytes 5.7 % (0.0-10.0); %Neutrophils 81.7 % (42.0-75.0); Hemoglobin 10.7 g/dL (12.0-16.0); Mean Corpuscular HGB CONC 33.3 g/dL (32.0-36.0); Mean Corpuscular Volume 86.9 fL (78.0-98.0); Mean Platelet Volume 7.5 fL (7.4-10.4); Platelet Count 285 thou/uL (130-400); RBC Distribution Width 12.9 % (11.5-14.5); Red Blood Cell (RBC) Count 3.71 mill/uL (4.20-5.40); White Blood Cell (WBC) Count 13.2 thou/uL (4.8-10.8)
--- NOTE | 2020-05-09 18:42 | RAD ---
SINGLE VIEW OF THE CHEST: 05/09/20 COMPARISON: 03/06/20 HISTORY: Chronic chest pain. FINDINGS: Single view of the chest shows an enlarged but stable cardiomediastinal silhouette. The patient is st atus post sternotomy. Diffuse increased interstitial markings are stable. There is no evidence of con solidation, mass, pneumothorax or pleural effusions. IMPRESSION: No evidence of acute cardiopulmonary disease. POS: EAA
[2020-05-09 19:11] LABS: ALT (SGPT) Less than 7 U/L (8-55); AST (SGOT) 10 U/L (5-34); Albumin 3.4 g/dL (3.4-4.8); Alkaline Phosphatase 116 U/L (40-110); Anion Gap 15 mmol/L (10-20); BUN (Urea Nitrogen) 17 mg/dL (9.8-20.1); Bilirubin, Total 0.6 mg/dL (0.2-1.2); Calc. Creatinine Clearance 0 mL/min (70-130); Calcium 8.4 mg/dL (7.8-10.44); Carbon Dioxide 24 mmol/L (23-31); Chloride 103 mmol/L (98-107); Globulin 3.1 g/dL (2.4-3.5); Glucose 90 mg/dL (80-115); Potassium 3.9 mmol/L (3.5-5.1); Protein, Total 6.5 g/dL (5.8-8.1); Sodium 138 mmol/L (136-145)
[2020-05-09] MEDS ORDERED: Acetaminophen 500 MG TAB ONE (20:32)
[2020-05-09] MEDS ORDERED: PROVENTIL INHALER 6.7 G (200 INHALATIONS) ONE (20:32)
[2020-05-09] MEDS ORDERED: Dexamethasone 10 MG/ML VIAL ONE (20:35)
[2020-05-09 20:51] LABS: Bilirubin Negative (Negative); Blood, Urine Negative (Negative); Clarity Clear (Clear); Glucose, Urine (Dipstick) Normal (Negative); Ketone, Urine Negative (Negative); Leukocyte Negative Leu/uL (Negative); Nitrite Negative (Negative); Protein, Urine (Dipstick) Negative (Neg-Trace); Urobilinogen Normal mg/dL (Less than 2); pH, Urine 6.5 (5.0-9.0)
[2020-05-09] MEDS ORDERED: Albuterol 200 PUFF (6.7GM INHALER) ONE (21:07)
[2020-05-10 09:05] LABS: SARS-CoV-2 PCR by NAA Not Detected (NotDetected)
== END 2020-05-09 21:24 | disposition home or self-care (01) ==
LOC: ERS 17:49
DX: J44.1 Chronic obstructive pulmonary disease with (acute) exacerbation (principal); D72.829 Elevated white blood cell count, unspecified; I11.0 Hypertensive heart disease with heart failure; I50.9 Heart failure, unspecified; I25.2 Old myocardial infarction; I25.10 Atherosclerotic heart disease of native coronary artery without angina pectoris; F17.210 Nicotine dependence, cigarettes, uncomplicated; Z79.51 Long term (current) use of inhaled steroids; Z79.899 Other long term (current) drug therapy; Z79.82 Long term (current) use of aspirin; Z20.822 Contact with and (suspected) exposure to COVID-19
CPT/HCPCS: 71045; 80053; 81003; 83605; 84484; 85025; 87040; 87086; 93005; U0003; U0005; 36415; 87635; 96374; J1100

== ENCOUNTER 2020-11-17 04:39 | Inpatient (IN) | payer MEDICARE, MEDICAID ==
[2020-11-17] MEDS ORDERED: Ondansetron PF 4 MG/2 ML Vial IVP PRN (09:26)
[2020-11-17] MEDS ORDERED: Albuterol Sulfate 2.5 mg/3 ml Neb NEB PRN (09:26)
[2020-11-17] MEDS ORDERED: Electrolyte Replacement Protocol 1 EACH FS SCH (09:30)
[2020-11-17 09:36] VITALS: BMI 26.9
[2020-11-17] MEDS ORDERED: Pregabalin 50 MG CAP PO SCH (10:15)
[2020-11-17 10:36] LABS: Anion Gap 8 mmol/L (10-20); BUN (Urea Nitrogen) 13 mg/dL (9.8-20.1); Calc. Creatinine Clearance 78 mL/min (70-130); Calcium 8.9 mg/dL (7.8-10.44); Carbon Dioxide 28 mmol/L (23-31); Chloride 104 mmol/L (98-107); Glucose 162 mg/dL (80-115); Magnesium 1.8 mg/dL (1.6-2.6); Potassium 3.3 mmol/L (3.5-5.1); Sodium 137 mmol/L (136-145)
[2020-11-17] MEDS: Acetaminophen/Codeine 30-300mg Tablet PO PRN ×2 (10:54→16:56)
[2020-11-17] MEDS ORDERED: Magnesium 2 GM/50 ML 2 GM in Premix Bag 1 BAG IVPB SCH (11:30)
[2020-11-17] MEDS ORDERED: Potassium Chloride 20 MEQ TAB PO SCH (11:30)
[2020-11-17] MEDS: Pregabalin 50 MG CAP PO SCH ×2 (16:54→20:32)
[2020-11-17] MEDS: Carvedilol 6.25 MG TAB PO SCH (16:55)
[2020-11-17] MEDS: Arformoterol 15 MCG/2 ML NEB NEB SCH (19:34)
[2020-11-17] MEDS: Doxycycline 100 MG CAP PO SCH (20:32)
[2020-11-17] MEDS: Rosuvastatin 20 MG TAB PO SCH (20:33)
[2020-11-18 04:21] LABS: #Lymphocytes 2.1 thou/uL (1.20-3.40); #Monocytes 0.5 thou/uL (0.11-0.59); #Neutrophils 4.9 thou/uL (1.40-6.50); %Basophils 0.1 % (0.0-1.0); %Eosinophils 0.5 % (0.0-10.0); %Lymphocytes 27.8 % (21.0-51.0); %Monocytes 6.2 % (0.0-10.0); %Neutrophils 65.4 % (42.0-75.0); Hemoglobin 10.7 g/dL (12.0-16.0); Mean Corpuscular HGB CONC 33.5 g/dL (32.0-36.0); Mean Corpuscular Hemoglobin 29.7 pg (27.0-31.0); Mean Corpuscular Volume 88.6 fL (78.0-98.0); Mean Platelet Volume 8.6 fL (7.4-10.4); Platelet Count 205 thou/uL (130-400); RBC Distribution Width 13.8 % (11.5-14.5); White Blood Cell (WBC) Count 7.5 thou/uL (4.8-10.8)
[2020-11-18 04:39] LABS: Anion Gap 9 mmol/L (10-20); BUN (Urea Nitrogen) 14 mg/dL (9.8-20.1); Calc. Creatinine Clearance 78 mL/min (70-130); Calcium 9.4 mg/dL (7.8-10.44); Carbon Dioxide 29 mmol/L (23-31); Chloride 105 mmol/L (98-107); Glucose 106 mg/dL (80-115); Sodium 139 mmol/L (136-145)
[2020-11-18] MEDS ORDERED: Aspirin 81 mg Enteric Coated Tablet PO SCH (09:00)
[2020-11-18] MEDS: Enoxaparin Sodium 40 MG/0.4 ML SYRINGE SC SCH (09:11)
[2020-11-18] MEDS: Doxycycline 100 MG CAP PO SCH ×2 (09:11→21:28)
[2020-11-18] MEDS: predniSONE 20 MG TAB PO SCH (09:11)
[2020-11-18] MEDS: Pregabalin 50 MG CAP PO SCH ×3 (09:12→21:28)
[2020-11-18] MEDS: Furosemide 40 MG TAB PO SCH (09:12)
[2020-11-18] MEDS: Carvedilol 6.25 MG TAB PO SCH ×2 (09:12→17:09)
[2020-11-18] MEDS: Clopidogrel Bisulfate 75 MG TAB PO SCH (09:13)
[2020-11-18] MEDS: Acetaminophen 325 MG TAB PO PRN (09:17)
[2020-11-18] MEDS: Acetaminophen/Codeine 30-300mg Tablet PO PRN ×3 (09:19→22:50)
[2020-11-18] MEDS: Arformoterol 15 MCG/2 ML NEB NEB SCH ×2 (09:20→18:24)
[2020-11-18] MEDS ORDERED: Polyethylene Glycol 3350 17 GM Packet PO PRN (18:19)
[2020-11-18] MEDS: Docusate 100 MG CAP PO SCH (21:28)
[2020-11-18] MEDS: Rosuvastatin 20 MG TAB PO SCH (21:29)
[2020-11-18] MEDS: Benzonatate 100 MG CAP PO PRN (21:30)
[2020-11-19] MEDS: Pregabalin 50 MG CAP PO SCH ×3 (08:56→21:27)
[2020-11-19] MEDS: Arformoterol 15 MCG/2 ML NEB NEB SCH ×2 (08:56→18:15)
[2020-11-19] MEDS: Magnesium Oxide 400 MG TAB PO SCH ×2 (08:58→18:04)
[2020-11-19] MEDS: Doxycycline 100 MG CAP PO SCH ×2 (08:58→21:27)
[2020-11-19] MEDS: Furosemide 40 MG TAB PO SCH (08:58)
[2020-11-19] MEDS: predniSONE 20 MG TAB PO SCH (08:58)
[2020-11-19] MEDS: Docusate 100 MG CAP PO SCH ×2 (08:58→21:27)
[2020-11-19] MEDS: Clopidogrel Bisulfate 75 MG TAB PO SCH (08:59)
[2020-11-19] MEDS: Carvedilol 6.25 MG TAB PO SCH ×2 (08:59→18:04)
[2020-11-19] MEDS: Enoxaparin Sodium 40 MG/0.4 ML SYRINGE SC SCH (08:59)
[2020-11-19] MEDS: Acetaminophen/Codeine 30-300mg Tablet PO PRN ×3 (09:05→21:28)
[2020-11-19] MEDS: Rosuvastatin 20 MG TAB PO SCH (21:27)
[2020-11-19] MEDS: Benzonatate 100 MG CAP PO PRN (21:28)
[2020-11-20] MEDS: Acetaminophen 325 MG TAB PO PRN (00:04)
[2020-11-20 04:44] LABS: #Lymphocytes 2.4 thou/uL (1.20-3.40); #Monocytes 0.5 thou/uL (0.11-0.59); #Neutrophils 4.2 thou/uL (1.40-6.50); %Basophils 0.3 % (0.0-1.0); %Eosinophils 0.5 % (0.0-10.0); %Lymphocytes 33.3 % (21.0-51.0); %Neutrophils 58.9 % (42.0-75.0); Hemoglobin 10.1 g/dL (12.0-16.0); Mean Corpuscular HGB CONC 33.9 g/dL (32.0-36.0); Mean Corpuscular Hemoglobin 29.8 pg (27.0-31.0); Mean Platelet Volume 8.4 fL (7.4-10.4); Platelet Count 225 thou/uL (130-400); RBC Distribution Width 13.5 % (11.5-14.5); Red Blood Cell (RBC) Count 3.38 mill/uL (4.20-5.40); White Blood Cell (WBC) Count 7.2 thou/uL (4.8-10.8)
[2020-11-20 04:55] LABS: Anion Gap 11 mmol/L (10-20); BUN (Urea Nitrogen) 17 mg/dL (9.8-20.1); Calc. Creatinine Clearance 72 mL/min (70-130); Calcium 8.8 mg/dL (7.8-10.44); Carbon Dioxide 26 mmol/L (23-31); Chloride 105 mmol/L (98-107); Glucose 85 mg/dL (80-115); Potassium 3.4 mmol/L (3.5-5.1); Sodium 139 mmol/L (136-145)
[2020-11-20] MEDS: Acetaminophen/Codeine 30-300mg Tablet PO PRN (05:49)
[2020-11-20] MEDS ORDERED: Potassium Chloride 20 MEQ TAB PO SCH (06:00)
[2020-11-20] MEDS ORDERED: Magnesium 2 GM/50 ML 2 GM in Premix Bag 1 BAG IVPB SCH (06:00)
[2020-11-20] MEDS: Furosemide 40 MG TAB PO SCH (08:24)
[2020-11-20] MEDS: Pregabalin 50 MG CAP PO SCH (08:24)
[2020-11-20] MEDS: Doxycycline 100 MG CAP PO SCH (08:24)
[2020-11-20] MEDS: Carvedilol 6.25 MG TAB PO SCH (08:25)
[2020-11-20] MEDS: Magnesium Oxide 400 MG TAB PO SCH (08:25)
[2020-11-20] MEDS: Docusate 100 MG CAP PO SCH (08:25)
[2020-11-20] MEDS: Clopidogrel Bisulfate 75 MG TAB PO SCH (08:26)
[2020-11-20] MEDS: Enoxaparin Sodium 40 MG/0.4 ML SYRINGE SC SCH (08:26)
[2020-11-20] MEDS: predniSONE 20 MG TAB PO SCH (08:26)
[2020-11-20] MEDS: Arformoterol 15 MCG/2 ML NEB NEB SCH (10:43)
[2020-11-20 11:52] VITALS: BP 116/60; TEMP 98.4
[2020-11-21] MEDS ORDERED: Potassium Chloride 20 MEQ TAB PO SCH (08:00)
== END 2020-11-20 14:00 | disposition home or self-care (01) | DRG 189 ==
LOC: 2NO 04:39
PROVIDERS: ADMIT Student in an Organized Health Care Education/Training Program; ATTEND Internal Medicine
DX: J96.21 Acute and chronic respiratory failure with hypoxia (principal); J44.1 Chronic obstructive pulmonary disease with (acute) exacerbation; I50.32 Chronic diastolic (congestive) heart failure; I25.10 Atherosclerotic heart disease of native coronary artery without angina pectoris; E78.5 Hyperlipidemia, unspecified; E87.6 Hypokalemia; K21.9 Gastro-esophageal reflux disease without esophagitis; G47.00 Insomnia, unspecified; I11.0 Hypertensive heart disease with heart failure; G89.29 Other chronic pain; D64.9 Anemia, unspecified; K59.00 Constipation, unspecified; F17.210 Nicotine dependence, cigarettes, uncomplicated; Z99.81 Dependence on supplemental oxygen; Z95.1 Presence of aortocoronary bypass graft; Z88.8 Allergy status to other drugs, medicaments and biological substances; Z88.2 Allergy status to sulfonamides; Z88.0 Allergy status to penicillin; Z79.51 Long term (current) use of inhaled steroids; Z79.82 Long term (current) use of aspirin; Z79.899 Other long term (current) drug therapy; Z98.51 Tubal ligation status; Z90.710 Acquired absence of both cervix and uterus; Z90.49 Acquired absence of other specified parts of digestive tract; Z90.89 Acquired absence of other organs; Z98.890 Other specified postprocedural states; Z71.6 Tobacco abuse counseling
CPT/HCPCS: 36415; 80048; 83735; 85025; 93306; 94640; J1650; J7512; J7611; J7620

== ENCOUNTER 2021-07-24 12:11 | Outpatient (CLI) | payer MEDICARE, MEDICAID | END 2021-07-24 12:12 | disposition home or self-care (01) | LOC: BICMAMMO 12:11 | PROVIDERS: ATTEND Family Medicine | DX: Z12.31 Encounter for screening mammogram for malignant neoplasm of breast (principal) | CPT/HCPCS: 77063; 77067 ==

== ENCOUNTER 2021-07-28 14:05 | Emergency (ER) | payer MEDICARE, MEDICAID ==
[2021-07-28] MEDS ORDERED: Cefepime 2 GM VIAL ONE (14:50)
[2021-07-28 15:09] LABS: #Basophils 0.1 thou/uL (0.0-0.2); #Eosinphils 0.1 thou/uL (0.0-0.7); #Lymphocytes 1.5 thou/uL (1.20-3.40); #Monocytes 0.5 thou/uL (0.11-0.59); #Neutrophils 11.2 thou/uL (1.40-6.50); %Basophils 0.5 % (0.0-1.0); %Lymphocytes 11.2 % (21.0-51.0); %Monocytes 3.8 % (0.0-10.0); %Neutrophils 83.4 % (42.0-75.0); Hemoglobin 11.5 g/dL (12.0-16.0); Mean Corpuscular HGB CONC 32.1 g/dL (32.0-36.0); Mean Corpuscular Hemoglobin 28.1 pg (27.0-31.0); Mean Corpuscular Volume 87.7 fL (78.0-98.0); Mean Platelet Volume 7.8 fL (7.4-10.4); Platelet Count 255 thou/uL (130-400); RBC Distribution Width 16.4 % (11.5-14.5); Red Blood Cell (RBC) Count 4.08 mill/uL (4.20-5.40); White Blood Cell (WBC) Count 13.4 thou/uL (4.8-10.8)
[2021-07-28 15:34] LABS: ALT (SGPT) 12 U/L (8-55); AST (SGOT) 19 U/L (5-34); Albumin 3.8 g/dL (3.4-4.8); Alkaline Phosphatase 87 U/L (40-110); Anion Gap 15 mmol/L (10-20); BUN (Urea Nitrogen) 16 mg/dL (9.8-20.1); Bilirubin, Total 0.4 mg/dL (0.2-1.2); Calc. Creatinine Clearance 0 mL/min (70-130); Calcium 8.5 mg/dL (7.8-10.44); Carbon Dioxide 25 mmol/L (23-31); Chloride 106 mmol/L (98-107); Globulin 2.2 g/dL (2.4-3.5); Glucose 99 mg/dL (80-115); Lipase 32 U/L (8-78); Magnesium 3.4 mg/dL (1.6-2.6); Potassium 4.9 mmol/L (3.5-5.1); Sodium 141 mmol/L (136-145)
[2021-07-28] MEDS ORDERED: Albuterol Sulfate 2.5 mg/0.5 ml Neb ONE (16:14)
[2021-07-28] MEDS ORDERED: Albuterol Sulfate 2.5 mg/3 ml Neb ONE (16:14)
[2021-07-28] MEDS ORDERED: Ipratropium Bromide 2.5 ml Neb ONE ×2 (16:14→16:15)
[2021-07-28] MEDS ORDERED: VANCOMYCIN 2 GRAM/500 ML BAG 2 GM in Premix Bag 1 BAG IVPB SCH (16:30)
[2021-07-28] MEDS ORDERED: Acetaminophen/Codeine 30-300mg Tablet ONE (18:20)
== END 2021-07-28 20:12 | disposition home or self-care (01) ==
LOC: ERS 14:05
DX: J44.1 Chronic obstructive pulmonary disease with (acute) exacerbation (principal); I25.2 Old myocardial infarction; I11.0 Hypertensive heart disease with heart failure; I50.9 Heart failure, unspecified; I25.10 Atherosclerotic heart disease of native coronary artery without angina pectoris; F17.210 Nicotine dependence, cigarettes, uncomplicated; Z79.899 Other long term (current) drug therapy; Z79.82 Long term (current) use of aspirin; Z79.52 Long term (current) use of systemic steroids
CPT/HCPCS: 71045; 80053; 83605; 83690; 83735; 83880; 84484; 85025; 87040; 93005; 94644; 94760; J3370; 36415; 96365; 96366; 96375; J0692; J1956; J7611; J7620

== ENCOUNTER 2022-01-17 06:59 | Inpatient (IN) | payer OTHER, MEDICAID ==
[2022-01-17] MEDS ORDERED: Acetaminophen 325 MG TAB PO PRN (10:43)
[2022-01-17] MEDS ORDERED: Ondansetron ODT 4 MG TAB PO PRN (10:43)
[2022-01-17] MEDS ORDERED: Ondansetron PF 4 MG/2 ML Vial IVP PRN (10:43)
[2022-01-17] MEDS ORDERED: Azithromycin 250 MG TAB PO SCH (10:45)
[2022-01-17] MEDS: Nicotine 14 MG PATCH TD SCH (11:38)
[2022-01-17 11:52] VITALS: BMI 33.4
[2022-01-17 12:02] LABS: #Lymphocytes 0.5 thou/uL (1.20-3.40); #Monocytes 0.1 thou/uL (0.11-0.59); #Neutrophils 8.9 thou/uL (1.40-6.50); %Basophils 0.2 % (0.0-1.0); %Eosinophils 0.3 % (0.0-10.0); %Lymphocytes 5.4 % (21.0-51.0); %Monocytes 1.1 % (0.0-10.0); %Neutrophils 93.1 % (42.0-75.0); Hemoglobin 9.8 g/dL (12.0-16.0); Mean Corpuscular HGB CONC 31.5 g/dL (32.0-36.0); Mean Corpuscular Hemoglobin 27.4 pg (27.0-31.0); Mean Corpuscular Volume 86.9 fl (78.0-98.0); Platelet Count 251 thou/uL (130-400); RBC Distribution Width 15.3 % (11.5-14.5); Red Blood Cell (RBC) Count 3.57 mill/uL (4.20-5.40); White Blood Cell (WBC) Count 9.6 thou/uL (4.8-10.8)
[2022-01-17 12:21] LABS: Anion Gap 14 mmol/L (10-20); BUN (Urea Nitrogen) 12 mg/dL (9.8-20.1); Calc. Creatinine Clearance 78 mL/min (70-130); Calcium 9.2 mg/dL (7.8-10.44); Carbon Dioxide 22 mmol/L (23-31); Chloride 108 mmol/L (98-107); Estimated GFR 59; Glucose 138 mg/dL (80-115); Magnesium 2.4 mg/dL (1.6-2.6); Potassium 4.3 mmol/L (3.5-5.1); Sodium 140 mmol/L (136-145)
[2022-01-17] MEDS ORDERED: tiZANidine HCl 4 MG TAB PO PRN (12:34)
[2022-01-17] MEDS ORDERED: Benzonatate 100 MG CAP PO PRN (12:34)
[2022-01-17] MEDS ORDERED: Ondansetron ODT 8 MG TAB PO PRN (12:34)
[2022-01-17] MEDS ORDERED: Zolpidem Tartrate 5 MG TAB PO PRN (12:59)
[2022-01-17] MEDS ORDERED: methylPREDNISolone Sod Succ 40 MG VIAL IVP SCH (14:00)
[2022-01-17] MEDS: methylPREDNISolone Sod Succ 40 MG VIAL IVP SCH ×2 (14:32→21:51)
[2022-01-17] MEDS: Pregabalin 50 MG CAP PO SCH ×2 (14:32→20:22)
[2022-01-17] MEDS: Acetaminophen/Codeine 30-300mg Tablet PO PRN (14:32)
[2022-01-17] MEDS: Mometasone/Formoterol 200/5 60 PUFF INH SCH (18:37)
[2022-01-17] MEDS: Furosemide 40 MG TAB PO SCH (20:22)
[2022-01-17] MEDS ORDERED: Meclizine HCl 12.5 MG TAB PO PRN (21:00)
[2022-01-18] MEDS: Acetaminophen/Codeine 30-300mg Tablet PO PRN ×3 (02:43→16:10)
[2022-01-18 04:45] LABS: Anion Gap 11 mmol/L (10-20); BUN (Urea Nitrogen) 15 mg/dL (9.8-20.1); Calc. Creatinine Clearance 77 mL/min (70-130); Calcium 9.4 mg/dL (7.8-10.44); Carbon Dioxide 26 mmol/L (23-31); Chloride 106 mmol/L (98-107); Estimated GFR 59; Glucose 143 mg/dL (80-115); Potassium 3.9 mmol/L (3.5-5.1); Sodium 139 mmol/L (136-145)
[2022-01-18] MEDS: methylPREDNISolone Sod Succ 40 MG VIAL IVP SCH ×3 (05:09→21:01)
[2022-01-18 05:21] LABS: Hemoglobin 10.3 g/dL (12.0-16.0); Lymphocytes 9 % (21-51); MDiff Complete? YES; Mean Corpuscular HGB CONC 31.6 g/dL (32.0-36.0); Mean Corpuscular Hemoglobin 27.6 pg (27.0-31.0); Mean Corpuscular Volume 87.4 fl (78.0-98.0); Mean Platelet Volume 7.9 fL (7.4-10.4); Monocytes 4 % (0-10); Neutrophil 87 % (42-75); Platelet Count 272 thou/uL (130-400); RBC Distribution Width 15.2 % (11.5-14.5); Red Blood Cell (RBC) Count 3.74 mill/uL (4.20-5.40); White Blood Cell (WBC) Count 9.6 thou/uL (4.8-10.8)
[2022-01-18] MEDS: Mometasone/Formoterol 200/5 60 PUFF INH SCH ×2 (06:53→19:10)
[2022-01-18] MEDS ORDERED: FLU VACC QS2022-23(6MOS UP)/PF 60 MCG/0.5 ML SYRINGE IM ONE (09:00)
[2022-01-18] MEDS ORDERED: Nicotine 14 MG PATCH TD SCH (09:00)
[2022-01-18] MEDS: Azithromycin 250 MG TAB PO SCH (09:54)
[2022-01-18] MEDS: Potassium Chloride 20 MEQ TAB PO SCH (09:54)
[2022-01-18] MEDS: Clopidogrel Bisulfate 75 MG TAB PO SCH (09:54)
[2022-01-18] MEDS: Magnesium Oxide 400 MG TAB PO SCH (09:55)
[2022-01-18] MEDS: DULoxetine 60 MG CAP PO SCH (09:55)
[2022-01-18] MEDS: Furosemide 40 MG TAB PO SCH ×2 (09:55→21:01)
[2022-01-18] MEDS: Rosuvastatin 20 MG TAB PO SCH (09:56)
[2022-01-18] MEDS: Pregabalin 50 MG CAP PO SCH ×3 (09:56→21:00)
[2022-01-18] MEDS: Enoxaparin Sodium 40 MG/0.4 ML SYRINGE SC SCH (14:26)
[2022-01-18] MEDS: Fluticasone Propionate Nasal Spray 16 gm Bottle NASAL SCH (16:08)
[2022-01-18] MEDS: Nicotine 14 MG PATCH TD SCH (16:11)
[2022-01-18] MEDS: hydrOXYzine 25 MG TAB PO PRN (16:19)
[2022-01-18] MEDS: cloNIDine 0.1 MG TAB PO PRN (21:00)
[2022-01-18 21:27] LABS: SARS-CoV-2 NAA Rapid Test Not Detected (NotDetected)
[2022-01-19] MEDS: Acetaminophen/Codeine 30-300mg Tablet PO PRN ×2 (01:02→20:07)
[2022-01-19 05:03] LABS: Anion Gap 16 mmol/L (10-20); BUN (Urea Nitrogen) 23 mg/dL (9.8-20.1); Calc. Creatinine Clearance 62 mL/min (70-130); Calcium 9.4 mg/dL (7.8-10.44); Carbon Dioxide 20 mmol/L (23-31); Chloride 103 mmol/L (98-107); Estimated GFR 45; Glucose 142 mg/dL (80-115); Potassium 4.4 mmol/L (3.5-5.1); Sodium 135 mmol/L (136-145)
[2022-01-19] MEDS: methylPREDNISolone Sod Succ 40 MG VIAL IVP SCH ×3 (05:16→20:58)
[2022-01-19] MEDS: Mometasone/Formoterol 200/5 60 PUFF INH SCH ×2 (07:41→18:35)
[2022-01-19 08:09] LABS: #Lymphocytes 0.6 thou/uL (1.20-3.40); #Monocytes 0.3 thou/uL (0.11-0.59); #Neutrophils 8.2 thou/uL (1.40-6.50); %Eosinophils 0.3 % (0.0-10.0); %Lymphocytes 6.4 % (21.0-51.0); %Monocytes 3.3 % (0.0-10.0); %Neutrophils 90.1 % (42.0-75.0); Hemoglobin 10.1 g/dL (12.0-16.0); Mean Corpuscular HGB CONC 31.2 g/dL (32.0-36.0); Mean Corpuscular Volume 86.6 fl (78.0-98.0); Platelet Count 297 thou/uL (130-400); RBC Distribution Width 15.1 % (11.5-14.5); Red Blood Cell (RBC) Count 3.74 mill/uL (4.20-5.40); White Blood Cell (WBC) Count 9.1 thou/uL (4.8-10.8)
[2022-01-19] MEDS: Azithromycin 250 MG TAB PO SCH (09:53)
[2022-01-19] MEDS: Potassium Chloride 20 MEQ TAB PO SCH (09:53)
[2022-01-19] MEDS: Fluticasone Propionate Nasal Spray 16 gm Bottle NASAL SCH (09:54)
[2022-01-19] MEDS: Clopidogrel Bisulfate 75 MG TAB PO SCH (09:54)
[2022-01-19] MEDS: Enoxaparin Sodium 40 MG/0.4 ML SYRINGE SC SCH (09:54)
[2022-01-19] MEDS: Furosemide 40 MG TAB PO SCH ×2 (09:54→20:09)
[2022-01-19] MEDS: Magnesium Oxide 400 MG TAB PO SCH (09:54)
[2022-01-19] MEDS: DULoxetine 60 MG CAP PO SCH (09:54)
[2022-01-19] MEDS: Pregabalin 50 MG CAP PO SCH ×3 (09:55→20:08)
[2022-01-19] MEDS: Rosuvastatin 20 MG TAB PO SCH (09:55)
[2022-01-19] MEDS: hydrOXYzine 25 MG TAB PO PRN (12:26)
[2022-01-19] MEDS: cloNIDine 0.1 MG TAB PO PRN (12:43)
[2022-01-19] MEDS: Nicotine 14 MG PATCH TD SCH (14:59)
[2022-01-19] MEDS ORDERED: Lidocaine 5% Patch TD PRN (18:51)
[2022-01-19] MEDS ORDERED: Transdermal Patch Removal TOP PRN (18:51)
[2022-01-20] MEDS: hydrOXYzine 25 MG TAB PO PRN ×2 (00:31→21:28)
[2022-01-20 04:40] LABS: #Eosinphils 0.1 thou/uL (0.0-0.7); #Lymphocytes 0.7 thou/uL (1.20-3.40); #Monocytes 0.4 thou/uL (0.11-0.59); #Neutrophils 6.4 thou/uL (1.40-6.50); %Basophils 0.1 % (0.0-1.0); %Eosinophils 0.8 % (0.0-10.0); %Lymphocytes 9.3 % (21.0-51.0); %Neutrophils 84.7 % (42.0-75.0); Hemoglobin 9.8 g/dL (12.0-16.0); Mean Corpuscular HGB CONC 31.7 g/dL (32.0-36.0); Mean Corpuscular Hemoglobin 27.1 pg (27.0-31.0); Mean Corpuscular Volume 85.6 fl (78.0-98.0); Platelet Count 269 thou/uL (130-400); Red Blood Cell (RBC) Count 3.61 mill/uL (4.20-5.40); White Blood Cell (WBC) Count 7.6 thou/uL (4.8-10.8)
[2022-01-20 05:02] LABS: Anion Gap 12 mmol/L (10-20); BUN (Urea Nitrogen) 26 mg/dL (9.8-20.1); Calc. Creatinine Clearance 65 mL/min (70-130); Calcium 9.2 mg/dL (7.8-10.44); Carbon Dioxide 29 mmol/L (23-31); Chloride 102 mmol/L (98-107); Estimated GFR 48; Glucose 147 mg/dL (80-115); Potassium 3.9 mmol/L (3.5-5.1); Sodium 139 mmol/L (136-145)
[2022-01-20] MEDS: methylPREDNISolone Sod Succ 40 MG VIAL IVP SCH ×2 (05:27→21:27)
[2022-01-20] MEDS: Mometasone/Formoterol 200/5 60 PUFF INH SCH ×2 (07:02→18:25)
[2022-01-20] MEDS ORDERED: Labetalol HCl 100 MG/20 ML VIAL SLOW IVP PRN (08:17)
[2022-01-20] MEDS: Potassium Chloride 20 MEQ TAB PO SCH (08:37)
[2022-01-20] MEDS: Azithromycin 250 MG TAB PO SCH (08:55)
[2022-01-20] MEDS: Clopidogrel Bisulfate 75 MG TAB PO SCH (08:55)
[2022-01-20] MEDS: Magnesium Oxide 400 MG TAB PO SCH (08:56)
[2022-01-20] MEDS: Fluticasone Propionate Nasal Spray 16 gm Bottle NASAL SCH (08:56)
[2022-01-20] MEDS: DULoxetine 60 MG CAP PO SCH (08:56)
[2022-01-20] MEDS: Enoxaparin Sodium 40 MG/0.4 ML SYRINGE SC SCH (08:56)
[2022-01-20] MEDS: Furosemide 40 MG TAB PO SCH ×2 (08:56→21:28)
[2022-01-20] MEDS: Rosuvastatin 20 MG TAB PO SCH (08:57)
[2022-01-20] MEDS: Pregabalin 50 MG CAP PO SCH ×3 (08:57→21:27)
[2022-01-20] MEDS: Acetaminophen/Codeine 30-300mg Tablet PO PRN ×2 (08:57→17:25)
[2022-01-20] MEDS ORDERED: Albuterol Sulfate 2.5 mg/3 ml Neb NEB PRN (11:40)
[2022-01-20] MEDS ORDERED: Spironolactone 25 MG TAB PO SCH (14:45)
[2022-01-20] MEDS: Nicotine 14 MG PATCH TD SCH (15:05)
[2022-01-20] MEDS: cloNIDine 0.1 MG TAB PO PRN (21:31)
[2022-01-21] MEDS: Acetaminophen/Codeine 30-300mg Tablet PO PRN ×3 (01:41→21:01)
[2022-01-21 04:33] LABS: #Eosinphils 0.1 thou/uL (0.0-0.7); #Lymphocytes 2.4 thou/uL (1.20-3.40); #Monocytes 0.8 thou/uL (0.11-0.59); #Neutrophils 5.8 thou/uL (1.40-6.50); %Basophils 0.4 % (0.0-1.0); %Eosinophils 1.2 % (0.0-10.0); %Lymphocytes 26.2 % (21.0-51.0); %Monocytes 8.6 % (0.0-10.0); %Neutrophils 63.6 % (42.0-75.0); Hemoglobin 9.9 g/dL (12.0-16.0); Mean Corpuscular HGB CONC 31.8 g/dL (32.0-36.0); Mean Corpuscular Hemoglobin 27.2 pg (27.0-31.0); Mean Corpuscular Volume 85.5 fl (78.0-98.0); Platelet Count 273 thou/uL (130-400); RBC Distribution Width 14.9 % (11.5-14.5); Red Blood Cell (RBC) Count 3.64 mill/uL (4.20-5.40); White Blood Cell (WBC) Count 9.2 thou/uL (4.8-10.8)
[2022-01-21 04:57] LABS: Anion Gap 12 mmol/L (10-20); BUN (Urea Nitrogen) 30 mg/dL (9.8-20.1); Calc. Creatinine Clearance 53 mL/min (70-130); Carbon Dioxide 29 mmol/L (23-31); Chloride 102 mmol/L (98-107); Estimated GFR 38; Glucose 109 mg/dL (80-115); Potassium 3.5 mmol/L (3.5-5.1); Sodium 139 mmol/L (136-145)
[2022-01-21] MEDS: Mometasone/Formoterol 200/5 60 PUFF INH SCH ×2 (07:21→18:36)
[2022-01-21] MEDS: Spironolactone 25 MG TAB PO SCH (08:58)
[2022-01-21] MEDS: Potassium Chloride 20 MEQ TAB PO SCH (08:58)
[2022-01-21] MEDS: DULoxetine 60 MG CAP PO SCH (08:59)
[2022-01-21] MEDS: cloNIDine 0.1 MG TAB PO SCH ×2 (08:59→21:02)
[2022-01-21] MEDS: Clopidogrel Bisulfate 75 MG TAB PO SCH (08:59)
[2022-01-21] MEDS: Fluticasone Propionate Nasal Spray 16 gm Bottle NASAL SCH (08:59)
[2022-01-21] MEDS: Enoxaparin Sodium 40 MG/0.4 ML SYRINGE SC SCH (08:59)
[2022-01-21] MEDS: Rosuvastatin 20 MG TAB PO SCH (09:00)
[2022-01-21] MEDS: Magnesium Oxide 400 MG TAB PO SCH (09:00)
[2022-01-21] MEDS: Pregabalin 50 MG CAP PO SCH ×3 (09:00→21:02)
[2022-01-21] MEDS: methylPREDNISolone Sod Succ 40 MG VIAL IVP SCH (09:20)
[2022-01-21] MEDS ORDERED: predniSONE 20 MG TAB PO SCH (09:30)
[2022-01-21] MEDS: Nicotine 14 MG PATCH TD SCH (13:13)
[2022-01-21] MEDS: hydrOXYzine 25 MG TAB PO PRN (13:13)
[2022-01-22] MEDS: Acetaminophen/Codeine 30-300mg Tablet PO PRN (04:54)
[2022-01-22 05:17] LABS: #Basophils 0.1 thou/uL (0.0-0.2); #Eosinphils 0.1 thou/uL (0.0-0.7); #Lymphocytes 1.1 thou/uL (1.20-3.40); #Monocytes 0.5 thou/uL (0.11-0.59); #Neutrophils 6.4 thou/uL (1.40-6.50); %Basophils 0.7 % (0.0-1.0); %Eosinophils 1.2 % (0.0-10.0); %Lymphocytes 13.2 % (21.0-51.0); %Monocytes 6.2 % (0.0-10.0); %Neutrophils 78.7 % (42.0-75.0); Hemoglobin 9.6 g/dL (12.0-16.0); Mean Corpuscular HGB CONC 30.9 g/dL (32.0-36.0); Mean Corpuscular Hemoglobin 26.7 pg (27.0-31.0); Mean Corpuscular Volume 86.4 fl (78.0-98.0); Platelet Count 275 thou/uL (130-400); RBC Distribution Width 14.7 % (11.5-14.5); Red Blood Cell (RBC) Count 3.61 mill/uL (4.20-5.40); White Blood Cell (WBC) Count 8.1 thou/uL (4.8-10.8)
[2022-01-22 06:00] LABS: Anion Gap 13 mmol/L (10-20); BUN (Urea Nitrogen) 26 mg/dL (9.8-20.1); Calc. Creatinine Clearance 69 mL/min (70-130); Carbon Dioxide 27 mmol/L (23-31); Chloride 101 mmol/L (98-107); Estimated GFR 53; Glucose 107 mg/dL (80-115); Potassium 4.3 mmol/L (3.5-5.1); Sodium 137 mmol/L (136-145)
[2022-01-22] MEDS: Mometasone/Formoterol 200/5 60 PUFF INH SCH (07:21)
[2022-01-22] MEDS ORDERED: Furosemide 40 MG TAB PO SCH (07:30)
[2022-01-22] MEDS: Potassium Chloride 20 MEQ TAB PO SCH (08:40)
[2022-01-22] MEDS: Rosuvastatin 20 MG TAB PO SCH (08:40)
[2022-01-22] MEDS: Pregabalin 50 MG CAP PO SCH ×2 (08:40→15:40)
[2022-01-22] MEDS: Spironolactone 25 MG TAB PO SCH (08:41)
[2022-01-22] MEDS: DULoxetine 60 MG CAP PO SCH (08:41)
[2022-01-22] MEDS: Clopidogrel Bisulfate 75 MG TAB PO SCH (08:41)
[2022-01-22] MEDS: Magnesium Oxide 400 MG TAB PO SCH (08:41)
[2022-01-22] MEDS: Enoxaparin Sodium 40 MG/0.4 ML SYRINGE SC SCH (08:41)
[2022-01-22] MEDS: Fluticasone Propionate Nasal Spray 16 gm Bottle NASAL SCH (08:42)
[2022-01-22] MEDS ORDERED: cloNIDine 0.2 MG TAB PO SCH (09:00)
[2022-01-22] MEDS: Nicotine 14 MG PATCH TD SCH (10:14)
[2022-01-22] MEDS ORDERED: Acetaminophen/Codeine 30-300mg Tablet PO PRN ×2 (13:24→13:30)
[2022-01-22] MEDS: hydrOXYzine 25 MG TAB PO PRN (13:43)
[2022-01-23 02:38] VITALS: BP 131/71; TEMP 97.8
== END 2022-01-22 16:30 | disposition home or self-care (01) | DRG 190 ==
LOC: 2NO 09:42
PROVIDERS: ADMIT Internal Medicine; ATTEND Internal Medicine
DX: J44.1 Chronic obstructive pulmonary disease with (acute) exacerbation (principal); J96.21 Acute and chronic respiratory failure with hypoxia; I13.0 Hypertensive heart and chronic kidney disease with heart failure and stage 1 through stage 4 chronic kidney disease, or unspecified chronic kidney disease; I50.32 Chronic diastolic (congestive) heart failure; Z99.81 Dependence on supplemental oxygen; I25.10 Atherosclerotic heart disease of native coronary artery without angina pectoris; K21.00 Gastro-esophageal reflux disease with esophagitis, without bleeding; Z20.822 Contact with and (suspected) exposure to COVID-19; E78.5 Hyperlipidemia, unspecified; N18.9 Chronic kidney disease, unspecified; Z95.1 Presence of aortocoronary bypass graft; Z90.710 Acquired absence of both cervix and uterus; Z98.51 Tubal ligation status; Z90.49 Acquired absence of other specified parts of digestive tract; F17.210 Nicotine dependence, cigarettes, uncomplicated; M54.9 Dorsalgia, unspecified; Z88.6 Allergy status to analgesic agent; Z88.0 Allergy status to penicillin; Z88.2 Allergy status to sulfonamides; Z88.8 Allergy status to other drugs, medicaments and biological substances; Z79.52 Long term (current) use of systemic steroids; Z79.899 Other long term (current) drug therapy; F41.1 Generalized anxiety disorder; F32.9 Major depressive disorder, single episode, unspecified
CPT/HCPCS: 36415; 80048; 83735; 83880; 85025; J1650; J2920; J7512; J7620; U0003; U0005

== ENCOUNTER 2022-02-09 09:59 | Inpatient (IN) | payer OTHER, MEDICAID ==
[2022-02-09] MEDS ORDERED: Acetaminophen 325 MG TAB PO PRN (12:12)
[2022-02-09] MEDS ORDERED: Calcium Carbonate 500 MG ChewTAB PO PRN (12:12)
[2022-02-09] MEDS ORDERED: Guaifenesin DM 100-10/5 ML UDCUP PO PRN (12:12)
[2022-02-09] MEDS ORDERED: Bisacodyl 10 MG SUPP PR PRN (12:12)
[2022-02-09] MEDS ORDERED: tiZANidine HCl 4 MG TAB PO PRN (12:16)
[2022-02-09 13:06] LABS: CKMB 6.8 ng/mL (0-6.6)
[2022-02-09] MEDS: Ipratropium Bromide 2.5 ml Neb NEB SCH (14:56)
[2022-02-09] MEDS: Pregabalin 50 MG CAP PO SCH ×2 (16:11→20:54)
[2022-02-09] MEDS: methylPREDNISolone Sod Succ 40 MG VIAL IVP SCH ×2 (16:14→21:08)
[2022-02-09] MEDS: HYDROcodone/Acetaminophen 5/325 mg Tablet PO PRN ×2 (16:47→21:00)
[2022-02-09] MEDS: Nicotine 14 MG PATCH TD SCH (16:59)
[2022-02-09] MEDS: Sodium Chloride 0.9% 1,000 ML IV SCH (16:59)
[2022-02-09] MEDS ORDERED: Mometasone/Formoterol 200/5 60 PUFF INH SCH (18:30)
[2022-02-09] MEDS ORDERED: Mometasone 200 MCG/Formoterol 5 MCG 120 PUFF INHALER INH SCH (19:45)
[2022-02-09] MEDS: cloNIDine 0.2 MG TAB PO SCH (20:50)
[2022-02-09] MEDS: Doxycycline 100 MG CAP PO SCH (20:51)
[2022-02-09] MEDS ORDERED: Senokot S 8.6-50 MG TAB PO SCH (21:00)
[2022-02-09] MEDS: Senokot S 8.6-50 MG TAB PO SCH (21:03)
[2022-02-10] MEDS: HYDROcodone/Acetaminophen 5/325 mg Tablet PO PRN ×4 (01:29→20:57)
[2022-02-10] MEDS: Sodium Chloride 0.9% 1,000 ML IV SCH (01:30)
[2022-02-10] MEDS: methylPREDNISolone Sod Succ 40 MG VIAL IVP SCH (05:31)
[2022-02-10 05:39] VITALS: BMI 30.1
[2022-02-10] MEDS: Mometasone 200 MCG/Formoterol 5 MCG 120 PUFF INHALER INH SCH ×2 (05:58→19:45)
[2022-02-10] MEDS: Ipratropium Bromide 2.5 ml Neb NEB SCH (06:51)
[2022-02-10 07:59] LABS: #Lymphocytes 0.7 thou/uL (1.20-3.40); #Monocytes 0.3 thou/uL (0.11-0.59); #Neutrophils 8.1 thou/uL (1.40-6.50); %Basophils 0.1 % (0.0-1.0); %Eosinophils 0.2 % (0.0-10.0); %Lymphocytes 7.5 % (21.0-51.0); %Monocytes 3.4 % (0.0-10.0); %Neutrophils 88.9 % (42.0-75.0); Mean Corpuscular HGB CONC 30.3 g/dL (32.0-36.0); Mean Corpuscular Hemoglobin 26.7 pg (27.0-31.0); Mean Corpuscular Volume 88.1 fl (78.0-98.0); Mean Platelet Volume 8.9 fL (7.4-10.4); Platelet Count 276 10x3/uL (130-400); RBC Distribution Width 15.6 % (11.5-14.5); Red Blood Cell (RBC) Count 3.76 mill/uL (4.20-5.40); White Blood Cell (WBC) Count 9.1 10x3/uL (4.8-10.8)
[2022-02-10 08:19] LABS: Anion Gap 16 mmol/L (10-20); BUN (Urea Nitrogen) 19 mg/dL (9.8-20.1); Calc. Creatinine Clearance 65 mL/min (70-130); Calcium 9.1 mg/dL (7.8-10.44); Carbon Dioxide 18 mmol/L (23-31); Chloride 109 mmol/L (98-107); Estimated GFR 54; Glucose 137 mg/dL (80-115); Potassium 4.1 mmol/L (3.5-5.1); Sodium 139 mmol/L (136-145)
[2022-02-10] MEDS ORDERED: FLU VACC QS2022-23(6MOS UP)/PF 60 MCG/0.5 ML SYRINGE IM ONE (09:00)
[2022-02-10] MEDS: DULoxetine 60 MG CAP PO SCH (09:31)
[2022-02-10] MEDS: Pregabalin 50 MG CAP PO SCH ×3 (09:33→20:55)
[2022-02-10] MEDS: Rosuvastatin 20 MG TAB PO SCH (09:33)
[2022-02-10] MEDS: Magnesium Oxide 400 MG TAB PO SCH (09:34)
[2022-02-10] MEDS: cloNIDine 0.2 MG TAB PO SCH ×2 (09:34→20:56)
[2022-02-10] MEDS: Clopidogrel Bisulfate 75 MG TAB PO SCH (09:34)
[2022-02-10] MEDS: Doxycycline 100 MG CAP PO SCH ×2 (09:34→20:55)
[2022-02-10] MEDS: Enoxaparin Sodium 30 MG/0.3 ML SYRINGE SC SCH (09:35)
[2022-02-10] MEDS: Senokot S 8.6-50 MG TAB PO SCH ×2 (09:35→20:57)
[2022-02-10] MEDS: Nicotine 14 MG PATCH TD SCH (11:44)
[2022-02-10] MEDS: hydrOXYzine 10 MG TAB PO PRN ×2 (12:01→22:57)
[2022-02-10] MEDS: Lidocaine 5% Patch TD SCH (12:02)
[2022-02-10] MEDS: Fluticasone Propionate Nasal Spray 16 gm Bottle NASAL SCH (15:45)
[2022-02-10] MEDS ORDERED: Albuterol 200 PUFF (6.7GM INHALER) INH PRN (19:27)
[2022-02-11] MEDS: HYDROcodone/Acetaminophen 5/325 mg Tablet PO PRN ×3 (01:07→12:31)
[2022-02-11] MEDS: Mometasone 200 MCG/Formoterol 5 MCG 120 PUFF INHALER INH SCH (06:23)
[2022-02-11] MEDS: Fluticasone Propionate Nasal Spray 16 gm Bottle NASAL SCH (06:47)
[2022-02-11] MEDS ORDERED: predniSONE 20 MG TAB PO SCH (08:00)
[2022-02-11] MEDS ORDERED: Nicotine 21 MG PATCH TD SCH (09:00)
[2022-02-11] MEDS ORDERED: Lidocaine 5% Patch TD SCH (09:00)
[2022-02-11] MEDS: Enoxaparin Sodium 30 MG/0.3 ML SYRINGE SC SCH (09:43)
[2022-02-11] MEDS: Pregabalin 50 MG CAP PO SCH ×2 (09:43→15:39)
[2022-02-11] MEDS: cloNIDine 0.2 MG TAB PO SCH (09:44)
[2022-02-11] MEDS: Rosuvastatin 20 MG TAB PO SCH (09:45)
[2022-02-11] MEDS: Doxycycline 100 MG CAP PO SCH (09:45)
[2022-02-11] MEDS: Magnesium Oxide 400 MG TAB PO SCH (09:45)
[2022-02-11] MEDS: Clopidogrel Bisulfate 75 MG TAB PO SCH (09:45)
[2022-02-11] MEDS: DULoxetine 60 MG CAP PO SCH (09:46)
[2022-02-11] MEDS: Senokot S 8.6-50 MG TAB PO SCH (09:47)
[2022-02-11] MEDS ORDERED: Sertraline 100 MG TAB PO SCH (11:15)
[2022-02-11] MEDS: Lidocaine 5% Patch TD SCH (11:22)
[2022-02-11 15:45] VITALS: BP 136/82; TEMP 97.6
[2022-02-11] MEDS ORDERED: Transdermal Patch Removal TOP SCH (23:59)
[2022-02-12] MEDS ORDERED: Sertraline 100 MG TAB PO SCH (09:00)
== END 2022-02-11 17:02 | disposition home or self-care (01) | DRG 189 ==
LOC: ERS 09:59 → SURG B 12:12
PROVIDERS: ADMIT Internal Medicine; ATTEND Internal Medicine
DX: J96.21 Acute and chronic respiratory failure with hypoxia (principal); J44.1 Chronic obstructive pulmonary disease with (acute) exacerbation; I13.0 Hypertensive heart and chronic kidney disease with heart failure and stage 1 through stage 4 chronic kidney disease, or unspecified chronic kidney disease; I50.32 Chronic diastolic (congestive) heart failure; M84.48XA Pathological fracture, other site, initial encounter for fracture; N17.9 Acute kidney failure, unspecified; I25.708 Atherosclerosis of coronary artery bypass graft(s), unspecified, with other forms of angina pectoris; F17.210 Nicotine dependence, cigarettes, uncomplicated; G89.4 Chronic pain syndrome; K21.9 Gastro-esophageal reflux disease without esophagitis; N18.30 Chronic kidney disease, stage 3 unspecified; E78.5 Hyperlipidemia, unspecified; Z95.1 Presence of aortocoronary bypass graft; Z90.89 Acquired absence of other organs; Z98.51 Tubal ligation status; Z90.710 Acquired absence of both cervix and uterus; Z94.7 Corneal transplant status; Z80.1 Family history of malignant neoplasm of trachea, bronchus and lung; Z79.02 Long term (current) use of antithrombotics/antiplatelets; Z79.899 Other long term (current) drug therapy; Z79.52 Long term (current) use of systemic steroids; Z88.8 Allergy status to other drugs, medicaments and biological substances; Z88.0 Allergy status to penicillin; Z88.2 Allergy status to sulfonamides; Z99.81 Dependence on supplemental oxygen; I25.2 Old myocardial infarction
CPT/HCPCS: 36415; 72128; 72131; 80048; 82553; 85025; 93005; 93970; 94640; J1650; J2920; J7050; J7512; J7620

== ENCOUNTER 2022-03-05 11:50 | Inpatient (IN) | payer OTHER, MEDICAID ==
[2022-03-05] MEDS ORDERED: Magnesium 2 GM/50 ML(in water) 2 GM in Premix Bag 1 BAG IVPB SCH (12:30)
[2022-03-05] MEDS ORDERED: Albuterol Sulfate 2.5 mg/3 ml Neb ONE (12:32)
[2022-03-05 13:10] LABS: #Basophils 0.1 thou/uL (0.0-0.2); #Eosinphils 0.2 thou/uL (0.0-0.7); #Lymphocytes 1.2 thou/uL (1.20-3.40); #Monocytes 0.6 thou/uL (0.11-0.59); #Neutrophils 12.1 thou/uL (1.40-6.50); %Basophils 0.3 % (0.0-1.0); %Eosinophils 1.6 % (0.0-10.0); %Lymphocytes 8.6 % (21.0-51.0); %Monocytes 4.2 % (0.0-10.0); %Neutrophils 85.2 % (42.0-75.0); Hemoglobin 12.1 g/dL (12.0-16.0); Mean Corpuscular HGB CONC 31.5 g/dL (32.0-36.0); Mean Corpuscular Hemoglobin 26.8 pg (27.0-31.0); Mean Platelet Volume 7.6 fL (7.4-10.4); Platelet Count 393 10x3/uL (130-400); RBC Distribution Width 15.5 % (11.5-14.5); Red Blood Cell (RBC) Count 4.53 mill/uL (4.20-5.40); White Blood Cell (WBC) Count 14.2 10x3/uL (4.8-10.8)
[2022-03-05 13:28] LABS: ALT (SGPT) 19 U/L (8-55); AST (SGOT) 31 U/L (5-34); Alkaline Phosphatase 133 U/L (40-110); Anion Gap 16 mmol/L (10-20); BUN (Urea Nitrogen) 24 mg/dL (9.8-20.1); Bilirubin, Total 0.4 mg/dL (0.2-1.2); Calc. Creatinine Clearance 0 mL/min (70-130); Calcium 9.2 mg/dL (7.8-10.44); Carbon Dioxide 25 mmol/L (23-31); Chloride 101 mmol/L (98-107); Estimated GFR 42; Globulin 2.5 g/dL (2.4-3.5); Glucose 150 mg/dL (80-115); Potassium 3.6 mmol/L (3.5-5.1); Protein, Total 6.5 g/dL (5.8-8.1); Sodium 138 mmol/L (136-145)
[2022-03-05 14:00] LABS: INR-International Normal Ratio 0.9; Prothrombin Time 12.8 sec (12.0-14.7)
[2022-03-05] MEDS ORDERED: Cefepime 2 GM VIAL ONE (14:40)
[2022-03-05 14:43] LABS: Actual Bicarbonate (HCO3a) 23.3 mEq/L (22-28); Analyzer IN Cardio ER; Base Excess (BEa) -1.6 mEq/L (-2.0 to +3.0); CO2 Tension 39.8 mmHg (35.0-45.0); Calcium, Ionized (arterial) 1.14 mmol/L (1.12-1.30); Carboxyhemoglobin (COHb) 1.6 gm% (0.0-3.0); Hemoglobin (Hb) 11.3 g/dL (12.0-16.0); O2 Tension (PaO2), arterial 82.4 mmHg (> 80.0); Potassium - ABG Lab 3.63 mmol/L (3.70-5.30); pH, Arterial 7.39 (7.35-7.45)
[2022-03-05 14:46] LABS: CKMB 4.6 ng/mL (0-6.6)
[2022-03-05 14:48] LABS: Puncture Site LBA
[2022-03-05 16:08] LABS: SARS-CoV-2 NAA Rapid Test DETECTED (NotDetected)
[2022-03-05] MEDS ORDERED: Acetaminophen 325 MG TAB PO PRN (16:24)
[2022-03-05] MEDS ORDERED: Benzonatate 100 MG CAP PO PRN (16:24)
[2022-03-05] MEDS ORDERED: Acetaminophen 650 MG Suppository PR PRN (16:24)
[2022-03-05] MEDS ORDERED: Albuterol 200 PUFF (6.7GM INHALER) INH PRN (16:24)
[2022-03-05] MEDS ORDERED: REMDESIVIR 200 MG in Sodium Chloride 0.9% 250 ML 210 ML IV SCH ×2 (16:30→17:45)
[2022-03-05 16:42] LABS: Lactic Acid 2.9 mmol/L (0.5-2.2)
[2022-03-05] MEDS ORDERED: Sodium Chloride 0.9% 1,000 ML IV SCH (17:30)
[2022-03-05 20:30] LABS: Troponin I 0.568 ng/mL (< 0.028)
[2022-03-05] MEDS: Mometasone/Formoterol 200/5 60 PUFF INH SCH (20:59)
[2022-03-05] MEDS ORDERED: Dexamethasone 10 MG/ML VIAL ONE (21:03)
[2022-03-05] MEDS: Dexamethasone 10 MG/ML VIAL SLOW IVP SCH (21:09)
[2022-03-05] MEDS ORDERED: Acetaminophen 325 MG TAB ONE (21:19)
[2022-03-05] MEDS ORDERED: Enoxaparin Sodium 100 MG/ML SYRINGE SC SCH (22:45)
[2022-03-05] MEDS ORDERED: Acetaminophen/Codeine 30-300mg Tablet PO SCH (23:45)
[2022-03-06] MEDS: Albuterol 200 PUFF (6.7GM INHALER) INH SCH ×3 (00:11→20:43)
[2022-03-06 00:28] VITALS: BMI 31.4
[2022-03-06 04:11] LABS: #Lymphocytes 0.4 thou/uL (1.20-3.40); #Monocytes 0.2 thou/uL (0.11-0.59); #Neutrophils 7.2 thou/uL (1.40-6.50); %Eosinophils 0.4 % (0.0-10.0); %Lymphocytes 5.4 % (21.0-51.0); %Monocytes 2.1 % (0.0-10.0); %Neutrophils 92.1 % (42.0-75.0); Hemoglobin 10.3 g/dL (12.0-16.0); Mean Corpuscular Hemoglobin 27.2 pg (27.0-31.0); Platelet Count 249 10x3/uL (130-400); RBC Distribution Width 15.1 % (11.5-14.5); Red Blood Cell (RBC) Count 3.78 mill/uL (4.20-5.40); White Blood Cell (WBC) Count 7.9 10x3/uL (4.8-10.8)
[2022-03-06 04:31] LABS: ALT (SGPT) 16 U/L (8-55); AST (SGOT) 20 U/L (5-34); Albumin 3.3 g/dL (3.4-4.8); Alkaline Phosphatase 102 U/L (40-110); Bilirubin, Direct 0.1 mg/dL (0.1-0.3); Bilirubin, Total 0.2 mg/dL (0.2-1.2); Protein, Total 5.5 g/dL (5.8-8.1)
[2022-03-06] MEDS: Mometasone/Formoterol 200/5 60 PUFF INH SCH (07:42)
[2022-03-06] MEDS ORDERED: Enoxaparin Sodium 40 MG/0.4 ML SYRINGE SC SCH (09:00)
[2022-03-06] MEDS ORDERED: Enoxaparin Sodium 100 MG/ML SYRINGE SC SCH (09:00)
[2022-03-06] MEDS: Zinc Sulfate 220 MG CAP PO SCH (09:07)
[2022-03-06] MEDS: Ascorbic Acid 500 mg Chewable Tablet PO SCH (09:07)
[2022-03-06] MEDS: Sertraline 100 MG TAB PO SCH (09:08)
[2022-03-06] MEDS: Clopidogrel Bisulfate 75 MG TAB PO SCH (09:09)
[2022-03-06] MEDS: Dexamethasone 10 MG/ML VIAL SLOW IVP SCH ×2 (09:09→20:40)
[2022-03-06] MEDS: DULoxetine 60 MG CAP PO SCH (09:13)
[2022-03-06] MEDS ORDERED: Acetaminophen/Codeine 30-300mg Tablet PO PRN (10:22)
[2022-03-06] MEDS ORDERED: cloNIDine 0.2 MG TAB PO SCH (10:30)
[2022-03-06] MEDS: Acetaminophen/Codeine 30-300mg Tablet PO PRN ×2 (10:38→16:43)
[2022-03-06] MEDS: Furosemide 20 MG/2 ML VIAL SLOW IVP SCH (10:38)
[2022-03-06] MEDS: Enoxaparin Sodium 40 MG/0.4 ML SYRINGE SC SCH ×2 (10:38→20:40)
[2022-03-06] MEDS: hydrOXYzine 25 MG TAB PO PRN ×2 (10:40→17:31)
[2022-03-06] MEDS: Senokot S 8.6-50 MG TAB PO SCH ×2 (10:40→20:40)
[2022-03-06 10:51] LABS: Lactic Acid 1.4 mmol/L (0.5-2.2)
[2022-03-06 10:56] LABS: Anion Gap 16 mmol/L (10-20); BUN (Urea Nitrogen) 18 mg/dL (9.8-20.1); Calc. Creatinine Clearance 78 mL/min (70-130); Calcium 9.1 mg/dL (7.8-10.44); Carbon Dioxide 20 mmol/L (23-31); Chloride 108 mmol/L (98-107); Estimated GFR 64; Glucose 114 mg/dL (80-115); Potassium 4.4 mmol/L (3.5-5.1); Sodium 140 mmol/L (136-145)
[2022-03-06 11:05] LABS: Troponin I 0.377 ng/mL (< 0.028)
[2022-03-06] MEDS: tiZANidine HCl 4 MG TAB PO PRN ×2 (12:15→20:58)
[2022-03-06] MEDS ORDERED: REMDESIVIR 100 MG in Sodium Chloride 0.9% 250 ML 230 ML IV SCH (16:30)
[2022-03-06] MEDS: REMDESIVIR 100 MG in Sodium Chloride 0.9% 250 ML 230 ML IV SCH (20:39)
[2022-03-06] MEDS: cloNIDine 0.2 MG TAB PO SCH (20:40)
[2022-03-06] MEDS: Rosuvastatin 20 MG TAB PO SCH (20:41)
[2022-03-07] MEDS: Albuterol 200 PUFF (6.7GM INHALER) INH SCH ×5 (01:06→18:11)
[2022-03-07 05:01] LABS: ALT (SGPT) 18 U/L (8-55); AST (SGOT) 36 U/L (5-34); Albumin 3.2 g/dL (3.4-4.8); Alkaline Phosphatase 87 U/L (40-110); Bilirubin, Direct 0.1 mg/dL (0.1-0.3); Bilirubin, Total 0.3 mg/dL (0.2-1.2); Protein, Total 5.1 g/dL (5.8-8.1)
[2022-03-07] MEDS: Mometasone/Formoterol 200/5 60 PUFF INH SCH ×3 (06:28→18:11)
[2022-03-07] MEDS: hydrOXYzine 25 MG TAB PO PRN ×2 (08:02→20:45)
[2022-03-07] MEDS: Sertraline 100 MG TAB PO SCH (08:03)
[2022-03-07] MEDS: Acetaminophen/Codeine 30-300mg Tablet PO PRN ×2 (08:03→14:23)
[2022-03-07] MEDS: Ascorbic Acid 500 mg Chewable Tablet PO SCH (08:04)
[2022-03-07] MEDS: Zinc Sulfate 220 MG CAP PO SCH (08:04)
[2022-03-07] MEDS: cloNIDine 0.2 MG TAB PO SCH ×2 (08:04→20:42)
[2022-03-07] MEDS: Clopidogrel Bisulfate 75 MG TAB PO SCH (08:04)
[2022-03-07] MEDS: Enoxaparin Sodium 40 MG/0.4 ML SYRINGE SC SCH ×2 (08:05→20:42)
[2022-03-07] MEDS: Dexamethasone 10 MG/ML VIAL SLOW IVP SCH ×2 (08:06→20:42)
[2022-03-07] MEDS: Furosemide 20 MG/2 ML VIAL SLOW IVP SCH (08:06)
[2022-03-07] MEDS: Senokot S 8.6-50 MG TAB PO SCH ×2 (08:06→20:42)
[2022-03-07] MEDS: DULoxetine 60 MG CAP PO SCH (08:06)
[2022-03-07] MEDS: tiZANidine HCl 4 MG TAB PO PRN ×2 (12:10→20:42)
[2022-03-07] MEDS: Rosuvastatin 20 MG TAB PO SCH (20:42)
[2022-03-07] MEDS: Zolpidem Tartrate 5 MG TAB PO SCH (20:42)
[2022-03-07] MEDS: REMDESIVIR 100 MG in Sodium Chloride 0.9% 250 ML 230 ML IV SCH (20:47)
[2022-03-08] MEDS: Albuterol 200 PUFF (6.7GM INHALER) INH SCH ×3 (02:45→12:47)
[2022-03-08] MEDS: Mometasone/Formoterol 200/5 60 PUFF INH SCH (07:28)
[2022-03-08] MEDS: Fluticasone Propionate Nasal Spray 16 gm Bottle NASAL SCH (07:57)
[2022-03-08] MEDS: Spironolactone 25 MG TAB PO SCH (07:58)
[2022-03-08] MEDS: Furosemide 20 MG/2 ML VIAL SLOW IVP SCH (07:58)
[2022-03-08] MEDS: Enoxaparin Sodium 40 MG/0.4 ML SYRINGE SC SCH ×2 (07:58→20:52)
[2022-03-08] MEDS: Dexamethasone 10 MG/ML VIAL SLOW IVP SCH ×2 (07:58→21:29)
[2022-03-08] MEDS: Acetaminophen/Codeine 30-300mg Tablet PO PRN ×2 (07:59→18:19)
[2022-03-08] MEDS: hydrOXYzine 25 MG TAB PO PRN ×2 (07:59→20:53)
[2022-03-08] MEDS: Sertraline 100 MG TAB PO SCH (07:59)
[2022-03-08] MEDS: Ascorbic Acid 500 mg Chewable Tablet PO SCH (07:59)
[2022-03-08] MEDS: Zinc Sulfate 220 MG CAP PO SCH (08:00)
[2022-03-08] MEDS: Clopidogrel Bisulfate 75 MG TAB PO SCH (08:00)
[2022-03-08] MEDS: cloNIDine 0.2 MG TAB PO SCH ×2 (08:00→20:53)
[2022-03-08] MEDS: Senokot S 8.6-50 MG TAB PO SCH ×2 (08:00→20:53)
[2022-03-08] MEDS: Furosemide 40 MG TAB PO SCH (09:37)
[2022-03-08] MEDS: Ondansetron PF 4 MG/2 ML Vial IVP PRN (12:47)
[2022-03-08] MEDS: tiZANidine HCl 4 MG TAB PO PRN (12:47)
[2022-03-08] MEDS ORDERED: Calcium Carbonate 500 MG ChewTAB PO PRN (18:05)
[2022-03-08] MEDS: Zolpidem Tartrate 5 MG TAB PO SCH (20:52)
[2022-03-08] MEDS: Rosuvastatin 20 MG TAB PO SCH (20:52)
[2022-03-08] MEDS: REMDESIVIR 100 MG in Sodium Chloride 0.9% 250 ML 230 ML IV SCH (20:53)
[2022-03-09 04:54] LABS: #Lymphocytes 0.7 thou/uL (1.20-3.40); #Monocytes 0.3 thou/uL (0.11-0.59); #Neutrophils 9.2 thou/uL (1.40-6.50); %Eosinophils 0.2 % (0.0-10.0); %Monocytes 2.8 % (0.0-10.0); Hemoglobin 10.6 g/dL (12.0-16.0); Mean Corpuscular HGB CONC 33.3 g/dL (32.0-36.0); Mean Corpuscular Hemoglobin 27.6 pg (27.0-31.0); Mean Corpuscular Volume 82.8 fl (78.0-98.0); Mean Platelet Volume 7.7 fL (7.4-10.4); Platelet Count 286 10x3/uL (130-400); RBC Distribution Width 15.1 % (11.5-14.5); Red Blood Cell (RBC) Count 3.85 mill/uL (4.20-5.40); White Blood Cell (WBC) Count 10.2 10x3/uL (4.8-10.8)
[2022-03-09 05:13] LABS: ALT (SGPT) 21 U/L (8-55); AST (SGOT) 23 U/L (5-34); Albumin 3.4 g/dL (3.4-4.8); Alkaline Phosphatase 79 U/L (40-110); Anion Gap 13 mmol/L (10-20); BUN (Urea Nitrogen) 31 mg/dL (9.8-20.1); Bilirubin, Total 0.3 mg/dL (0.2-1.2); Calc. Creatinine Clearance 69 mL/min (70-130); Calcium 8.8 mg/dL (7.8-10.44); Carbon Dioxide 26 mmol/L (23-31); Chloride 103 mmol/L (98-107); Estimated GFR 56; Glucose 149 mg/dL (80-115); Potassium 4.1 mmol/L (3.5-5.1); Protein, Total 5.4 g/dL (5.8-8.1); Sodium 138 mmol/L (136-145)
[2022-03-09] MEDS: Mometasone/Formoterol 200/5 60 PUFF INH SCH ×3 (07:29→17:28)
[2022-03-09] MEDS: Albuterol 200 PUFF (6.7GM INHALER) INH SCH ×5 (07:29→17:07)
[2022-03-09] MEDS: Senokot S 8.6-50 MG TAB PO SCH ×2 (07:33→21:04)
[2022-03-09] MEDS: Fluticasone Propionate Nasal Spray 16 gm Bottle NASAL SCH (09:00)
[2022-03-09] MEDS ORDERED: Pantoprazole 40 MG VIAL IVP SCH (09:00)
[2022-03-09] MEDS: Spironolactone 25 MG TAB PO SCH (09:06)
[2022-03-09] MEDS: Acetaminophen/Codeine 30-300mg Tablet PO PRN ×2 (09:06→17:26)
[2022-03-09] MEDS: Dexamethasone 10 MG/ML VIAL SLOW IVP SCH (09:06)
[2022-03-09] MEDS: Enoxaparin Sodium 40 MG/0.4 ML SYRINGE SC SCH ×2 (09:06→21:02)
[2022-03-09] MEDS: Zinc Sulfate 220 MG CAP PO SCH (09:07)
[2022-03-09] MEDS: Furosemide 40 MG TAB PO SCH (09:07)
[2022-03-09] MEDS: Sertraline 100 MG TAB PO SCH (09:07)
[2022-03-09] MEDS: cloNIDine 0.2 MG TAB PO SCH ×2 (09:07→21:04)
[2022-03-09] MEDS: Ascorbic Acid 500 mg Chewable Tablet PO SCH (09:07)
[2022-03-09] MEDS: Clopidogrel Bisulfate 75 MG TAB PO SCH (09:07)
[2022-03-09] MEDS ORDERED: Mag-Al 1200 mg/1200 mg/30 ML UDCUP PO PRN (10:32)
[2022-03-09] MEDS: Nicotine 14 MG PATCH TD PRN (10:49)
[2022-03-09] MEDS: Calcium Carbonate 500 MG ChewTAB PO PRN (10:50)
[2022-03-09] MEDS: Pregabalin 50 MG CAP PO PRN ×2 (10:50→21:04)
[2022-03-09] MEDS: tiZANidine HCl 4 MG TAB PO PRN ×2 (13:25→21:02)
[2022-03-09] MEDS: hydrOXYzine 25 MG TAB PO PRN (15:10)
[2022-03-09] MEDS: Ondansetron PF 4 MG/2 ML Vial IVP PRN (19:23)
[2022-03-09] MEDS: Rosuvastatin 20 MG TAB PO SCH (21:03)
[2022-03-09] MEDS: Zolpidem Tartrate 5 MG TAB PO SCH (21:03)
[2022-03-09] MEDS: Multivit, Therapeutic 1 TAB PO SCH (21:04)
[2022-03-09] MEDS: guaiFENesin ER 600 MG TAB PO SCH (21:04)
[2022-03-09] MEDS: REMDESIVIR 100 MG in Sodium Chloride 0.9% 250 ML 230 ML IV SCH (22:29)
[2022-03-10] MEDS: Albuterol 200 PUFF (6.7GM INHALER) INH SCH ×4 (02:45→18:26)
[2022-03-10 05:07] LABS: #Lymphocytes 1.8 thou/uL (1.20-3.40); #Neutrophils 7.7 thou/uL (1.40-6.50); %Eosinophils 0.4 % (0.0-10.0); %Lymphocytes 17.3 % (21.0-51.0); %Monocytes 9.8 % (0.0-10.0); %Neutrophils 72.4 % (42.0-75.0); Hemoglobin 10.8 g/dL (12.0-16.0); Mean Corpuscular HGB CONC 33.7 g/dL (32.0-36.0); Mean Corpuscular Volume 83.3 fl (78.0-98.0); Mean Platelet Volume 8.1 fL (7.4-10.4); Platelet Count 236 10x3/uL (130-400); RBC Distribution Width 14.9 % (11.5-14.5); Red Blood Cell (RBC) Count 3.84 mill/uL (4.20-5.40); White Blood Cell (WBC) Count 10.6 10x3/uL (4.8-10.8)
[2022-03-10 05:30] LABS: ALT (SGPT) 22 U/L (8-55); AST (SGOT) 21 U/L (5-34); Albumin 3.5 g/dL (3.4-4.8); Alkaline Phosphatase 75 U/L (40-110); Anion Gap 16 mmol/L (10-20); BUN (Urea Nitrogen) 31 mg/dL (9.8-20.1); Bilirubin, Total 0.3 mg/dL (0.2-1.2); Calc. Creatinine Clearance 62 mL/min (70-130); Calcium 9.1 mg/dL (7.8-10.44); Carbon Dioxide 26 mmol/L (23-31); Chloride 100 mmol/L (98-107); Estimated GFR 49; Globulin 2.1 g/dL (2.4-3.5); Glucose 113 mg/dL (80-115); Magnesium 2.1 mg/dL (1.6-2.6); Potassium 3.6 mmol/L (3.5-5.1); Protein, Total 5.6 g/dL (5.8-8.1); Sodium 138 mmol/L (136-145)
[2022-03-10 05:36] LABS: Phosphorus 3.4 mg/dL (2.3-4.7)
[2022-03-10] MEDS ORDERED: Dexamethasone 10 MG/ML VIAL SLOW IVP SCH (09:00)
[2022-03-10] MEDS: Enoxaparin Sodium 40 MG/0.4 ML SYRINGE SC SCH (09:52)
[2022-03-10] MEDS: hydrOXYzine 25 MG TAB PO PRN (09:52)
[2022-03-10] MEDS: Pregabalin 50 MG CAP PO PRN ×2 (09:52→20:51)
[2022-03-10] MEDS: Furosemide 40 MG TAB PO SCH (09:53)
[2022-03-10] MEDS: guaiFENesin ER 600 MG TAB PO SCH ×2 (09:53→20:52)
[2022-03-10] MEDS: Sertraline 100 MG TAB PO SCH (09:53)
[2022-03-10] MEDS: Spironolactone 25 MG TAB PO SCH (09:54)
[2022-03-10] MEDS: Clopidogrel Bisulfate 75 MG TAB PO SCH (09:54)
[2022-03-10] MEDS: cloNIDine 0.2 MG TAB PO SCH ×2 (09:54→20:52)
[2022-03-10] MEDS: Zinc Sulfate 220 MG CAP PO SCH (09:54)
[2022-03-10] MEDS: Ascorbic Acid 500 mg Chewable Tablet PO SCH (09:54)
[2022-03-10] MEDS: Fluticasone Propionate Nasal Spray 16 gm Bottle NASAL SCH (09:55)
[2022-03-10] MEDS: Mometasone/Formoterol 200/5 60 PUFF INH SCH ×2 (09:55→18:26)
[2022-03-10] MEDS: Senokot S 8.6-50 MG TAB PO SCH ×2 (09:56→20:52)
[2022-03-10] MEDS: Acetaminophen/Codeine 30-300mg Tablet PO PRN (12:08)
[2022-03-10] MEDS: Calcium Carbonate 500 MG ChewTAB PO PRN (14:14)
[2022-03-10] MEDS: Ondansetron PF 4 MG/2 ML Vial IVP PRN (14:14)
[2022-03-10] MEDS: tiZANidine HCl 4 MG TAB PO PRN ×2 (17:55→20:52)
[2022-03-10] MEDS: Rosuvastatin 20 MG TAB PO SCH (20:51)
[2022-03-10] MEDS: Nicotine 14 MG PATCH TD PRN (20:51)
[2022-03-10] MEDS: Multivit, Therapeutic 1 TAB PO SCH (20:52)
[2022-03-10] MEDS: Zolpidem Tartrate 5 MG TAB PO SCH (20:52)
[2022-03-11] MEDS: Albuterol 200 PUFF (6.7GM INHALER) INH SCH ×4 (01:00→18:25)
[2022-03-11] MEDS: hydrOXYzine 25 MG TAB PO PRN ×2 (02:53→14:41)
[2022-03-11 06:07] LABS: Anion Gap 14 mmol/L (10-20); BUN (Urea Nitrogen) 30 mg/dL (9.8-20.1); Calc. Creatinine Clearance 60 mL/min (70-130); Calcium 9.1 mg/dL (7.8-10.44); Carbon Dioxide 30 mmol/L (23-31); Chloride 97 mmol/L (98-107); Estimated GFR 48; Glucose 118 mg/dL (80-115); Potassium 3.6 mmol/L (3.5-5.1); Sodium 137 mmol/L (136-145)
[2022-03-11 06:41] LABS: Band 3 % (5-11); Hemoglobin 9.9 g/dL (12.0-16.0); Hypochromia SLIGHT = 6-15 cells (100X) (0-5/hpf); Lymphocytes 23 % (21-51); MDiff Complete? YES; Mean Corpuscular HGB CONC 32.7 g/dL (32.0-36.0); Mean Corpuscular Volume 82.3 fl (78.0-98.0); Mean Platelet Volume 8.5 fL (7.4-10.4); Monocytes 9 % (0-10); Neutrophil 65 % (42-75); Platelet Count 237 10x3/uL (130-400); Platelet Morphology Comment Appears Adequate; RBC Distribution Width 14.8 % (11.5-14.5); Red Blood Cell (RBC) Count 3.67 mill/uL (4.20-5.40); White Blood Cell (WBC) Count 8.6 10x3/uL (4.8-10.8)
[2022-03-11] MEDS: Mometasone/Formoterol 200/5 60 PUFF INH SCH ×2 (06:42→18:25)
[2022-03-11] MEDS: Enoxaparin Sodium 40 MG/0.4 ML SYRINGE SC SCH (09:43)
[2022-03-11] MEDS: Sertraline 100 MG TAB PO SCH (09:43)
[2022-03-11] MEDS: Senokot S 8.6-50 MG TAB PO SCH ×2 (09:44→21:00)
[2022-03-11] MEDS: Clopidogrel Bisulfate 75 MG TAB PO SCH (09:44)
[2022-03-11] MEDS: Ascorbic Acid 500 mg Chewable Tablet PO SCH (09:44)
[2022-03-11] MEDS: cloNIDine 0.2 MG TAB PO SCH ×2 (09:44→20:57)
[2022-03-11] MEDS: Furosemide 40 MG TAB PO SCH (09:44)
[2022-03-11] MEDS: Zinc Sulfate 220 MG CAP PO SCH (09:44)
[2022-03-11] MEDS: Spironolactone 25 MG TAB PO SCH (09:44)
[2022-03-11] MEDS: guaiFENesin ER 600 MG TAB PO SCH ×2 (09:45→20:58)
[2022-03-11] MEDS: Dexamethasone 4 MG TAB PO SCH (09:45)
[2022-03-11] MEDS: Acetaminophen/Codeine 30-300mg Tablet PO PRN (09:45)
[2022-03-11] MEDS: Fluticasone Propionate Nasal Spray 16 gm Bottle NASAL SCH (09:46)
[2022-03-11] MEDS: Ondansetron PF 4 MG/2 ML Vial IVP PRN (11:18)
[2022-03-11] MEDS: Multivit, Therapeutic 1 TAB PO SCH (20:58)
[2022-03-11] MEDS: tiZANidine HCl 4 MG TAB PO PRN (20:58)
[2022-03-11] MEDS: Zolpidem Tartrate 5 MG TAB PO SCH (20:58)
[2022-03-11] MEDS: Rosuvastatin 20 MG TAB PO SCH (20:58)
[2022-03-12 05:09] LABS: #Eosinphils 0.1 thou/uL (0.0-0.7); #Lymphocytes 1.6 thou/uL (1.20-3.40); #Monocytes 0.6 thou/uL (0.11-0.59); #Neutrophils 7.4 thou/uL (1.40-6.50); %Eosinophils 1.4 % (0.0-10.0); %Lymphocytes 16.7 % (21.0-51.0); %Monocytes 6.3 % (0.0-10.0); %Neutrophils 75.6 % (42.0-75.0); Hemoglobin 9.8 g/dL (12.0-16.0); Mean Corpuscular HGB CONC 33.5 g/dL (32.0-36.0); Mean Corpuscular Hemoglobin 27.1 pg (27.0-31.0); Mean Corpuscular Volume 80.9 fl (78.0-98.0); Mean Platelet Volume 8.4 fL (7.4-10.4); Platelet Count 212 10x3/uL (130-400); RBC Distribution Width 14.9 % (11.5-14.5); Red Blood Cell (RBC) Count 3.62 mill/uL (4.20-5.40); White Blood Cell (WBC) Count 9.8 10x3/uL (4.8-10.8)
[2022-03-12 05:40] LABS: Anion Gap 11 mmol/L (10-20); BUN (Urea Nitrogen) 26 mg/dL (9.8-20.1); Calc. Creatinine Clearance 67 mL/min (70-130); Calcium 8.8 mg/dL (7.8-10.44); Carbon Dioxide 32 mmol/L (23-31); Chloride 98 mmol/L (98-107); Estimated GFR 54; Glucose 110 mg/dL (80-115); Potassium 3.5 mmol/L (3.5-5.1); Sodium 137 mmol/L (136-145)
[2022-03-12] MEDS: Albuterol 200 PUFF (6.7GM INHALER) INH SCH ×4 (06:37→18:53)
[2022-03-12] MEDS: Mometasone/Formoterol 200/5 60 PUFF INH SCH ×2 (06:38→18:54)
[2022-03-12 08:39] VITALS: TEMP 98
[2022-03-12] MEDS: Furosemide 40 MG TAB PO SCH (08:40)
[2022-03-12] MEDS: guaiFENesin ER 600 MG TAB PO SCH (08:40)
[2022-03-12] MEDS: Ascorbic Acid 500 mg Chewable Tablet PO SCH (08:40)
[2022-03-12] MEDS: Sertraline 100 MG TAB PO SCH (08:40)
[2022-03-12] MEDS: Spironolactone 25 MG TAB PO SCH (08:40)
[2022-03-12] MEDS: Enoxaparin Sodium 40 MG/0.4 ML SYRINGE SC SCH (08:40)
[2022-03-12] MEDS: Dexamethasone 4 MG TAB PO SCH (08:41)
[2022-03-12] MEDS: Clopidogrel Bisulfate 75 MG TAB PO SCH (08:42)
[2022-03-12] MEDS: Senokot S 8.6-50 MG TAB PO SCH (08:42)
[2022-03-12] MEDS: cloNIDine 0.2 MG TAB PO SCH (08:42)
[2022-03-12] MEDS: Acetaminophen/Codeine 30-300mg Tablet PO PRN ×2 (08:42→17:52)
[2022-03-12] MEDS: Zinc Sulfate 220 MG CAP PO SCH (08:42)
[2022-03-12] MEDS: Fluticasone Propionate Nasal Spray 16 gm Bottle NASAL SCH (08:44)
[2022-03-12 12:55] VITALS: BP 129/71
[2022-03-12] MEDS: hydrOXYzine 25 MG TAB PO PRN (13:14)
[2022-03-12] MEDS: Ondansetron PF 4 MG/2 ML Vial IVP PRN (15:18)
== END 2022-03-12 19:00 | DRG 871 ==
LOC: ERS 11:50 → ERHOLD 16:20 → IMCU/EMU 23:21 → 2NO 03-08 17:22
PROVIDERS: ADMIT Internal Medicine; ATTEND Internal Medicine
PROC: XW033E5 Introduction of Remdesivir Anti-infective into Peripheral Vein, Percutaneous Approach, New Technology Group 5 (ICD-10-PCS; principal; 2022-03-05)
PROC: 5A0945A Assistance with Respiratory Ventilation, 24-96 Consecutive Hours, High Flow/Velocity Cannula (ICD-10-PCS; 2022-03-05)
PROC: 3E03329 Introduction of Other Anti-infective into Peripheral Vein, Percutaneous Approach (ICD-10-PCS; 2022-03-05)
PROC: 8E0ZXY6 Isolation (ICD-10-PCS; 2022-03-05)
DX: A41.89 Other specified sepsis (principal); U07.1 COVID-19; J12.82 Pneumonia due to coronavirus disease 2019; I21.A1 Myocardial infarction type 2; J96.21 Acute and chronic respiratory failure with hypoxia; J44.1 Chronic obstructive pulmonary disease with (acute) exacerbation; J44.0 Chronic obstructive pulmonary disease with (acute) lower respiratory infection; N17.9 Acute kidney failure, unspecified; R65.20 Severe sepsis without septic shock; I25.10 Atherosclerotic heart disease of native coronary artery without angina pectoris; E78.5 Hyperlipidemia, unspecified; F17.210 Nicotine dependence, cigarettes, uncomplicated; E66.9 Obesity, unspecified; D53.9 Nutritional anemia, unspecified; N18.30 Chronic kidney disease, stage 3 unspecified; F41.9 Anxiety disorder, unspecified; G89.29 Other chronic pain; Z68.31 Body mass index [BMI] 31.0-31.9, adult; Z95.1 Presence of aortocoronary bypass graft; Z99.81 Dependence on supplemental oxygen; Z88.5 Allergy status to narcotic agent; Z88.0 Allergy status to penicillin; Z88.2 Allergy status to sulfonamides; Z88.8 Allergy status to other drugs, medicaments and biological substances; Z79.899 Other long term (current) drug therapy; Z79.02 Long term (current) use of antithrombotics/antiplatelets; Z79.51 Long term (current) use of inhaled steroids; Z79.52 Long term (current) use of systemic steroids; Z80.0 Family history of malignant neoplasm of digestive organs; Z98.51 Tubal ligation status; Z90.49 Acquired absence of other specified parts of digestive tract; Z90.710 Acquired absence of both cervix and uterus; Z90.89 Acquired absence of other organs
CPT/HCPCS: 36415; 36416; 36600; 71045; 80048; 80053; 80076; 82553; 82728; 82805; 83605; 83735; 83880; 84100; 84145; 84484; 85025; 85379; 85610; 85730; 86140; 87040; 87070; 87205; 93005; 94644; 94660; 94664; 94760; 96361; 96365; 96367; 96375; C9113; J0248; J0692; J1100; J1650; J1940; J1956; J2405; J3475; J7050; J7611; J7620; J8540

== ENCOUNTER 2022-04-26 11:13 | Inpatient (IN) | payer OTHER ==
[2022-04-26 11:29] VITALS: BMI 30.3
[2022-04-26] MEDS ORDERED: Lorazepam 2 MG/ML VIAL SLOW IVP PRN (11:43)
[2022-04-26] MEDS ORDERED: Bisacodyl 10 MG SUPP PR PRN (11:44)
[2022-04-26] MEDS ORDERED: Scopolamine 1.5 mg/72 hour Patch TOP PRN (11:45)
[2022-04-26] MEDS ORDERED: Acetaminophen 650 MG Suppository PR PRN (11:45)
[2022-04-26] MEDS ORDERED: Haloperidol Lactate 5 MG/ML VIAL SLOW IVP PRN (11:45)
[2022-04-26] MEDS ORDERED: Ondansetron PF 4 MG/2 ML Vial IVP PRN (11:45)
[2022-04-26] MEDS: Morphine 4 MG/ML VIAL SLOW IVP PRN ×6 (12:11→22:52)
[2022-04-26] MEDS: diphenhydrAMINE 50 MG/ML VIAL IVP PRN (13:29)
[2022-04-26] MEDS: Ipratropium/Albuterol 3 ML NEB NEB SCH ×4 (13:32→22:41)
[2022-04-26] MEDS: Lorazepam 2 MG/ML VIAL SLOW IVP PRN (15:20)
[2022-04-26] MEDS: Arformoterol 15 MCG/2 ML NEB NEB SCH (19:07)
[2022-04-26] MEDS: methylPREDNISolone Sod Succ 40 MG VIAL IVP SCH (20:55)
[2022-04-27] MEDS: Ipratropium/Albuterol 3 ML NEB NEB SCH ×3 (01:15→07:17)
[2022-04-27] MEDS: Morphine 4 MG/ML VIAL SLOW IVP PRN ×5 (01:46→21:35)
[2022-04-27] MEDS: Lorazepam 2 MG/ML VIAL SLOW IVP PRN ×2 (01:54→08:47)
[2022-04-27] MEDS: diphenhydrAMINE 50 MG/ML VIAL IVP PRN ×3 (02:47→21:35)
[2022-04-27] MEDS: Arformoterol 15 MCG/2 ML NEB NEB SCH (07:29)
[2022-04-27] MEDS: methylPREDNISolone Sod Succ 40 MG VIAL IVP SCH (08:43)
[2022-04-27] MEDS ORDERED: Ipratropium/Albuterol 3 ML NEB NEB PRN (09:52)
[2022-04-28] MEDS: Lorazepam 2 MG/ML VIAL SLOW IVP PRN ×4 (00:51→21:47)
[2022-04-28] MEDS: Morphine 4 MG/ML VIAL SLOW IVP PRN ×6 (02:58→21:55)
[2022-04-28] MEDS: diphenhydrAMINE 50 MG/ML VIAL IVP PRN (04:05)
[2022-04-28] MEDS ORDERED: methylPREDNISolone Sod Succ 40 MG VIAL IVP SCH (09:00)
[2022-04-28] MEDS ORDERED: Scopolamine 1.5 mg/72 hour Patch TOP PRN (11:37)
[2022-04-28] MEDS ORDERED: GLYCOPYRROLATE/PF 0.2 MG/ML VIAL SLOW IVP PRN (11:40)
[2022-04-28] MEDS: Glycopyrrolate 0.2 MG/ML 5 ML SYRINGE SLOW IVP PRN (21:56)
[2022-04-29] MEDS: Morphine 4 MG/ML VIAL SLOW IVP PRN ×7 (00:16→08:13)
[2022-04-29] MEDS: Lorazepam 2 MG/ML VIAL SLOW IVP PRN (02:24)
[2022-04-29] MEDS: Glycopyrrolate 0.2 MG/ML 5 ML SYRINGE SLOW IVP PRN (05:49)
[2022-04-29 08:38] VITALS: BP 163/71; TEMP 100.2
== END 2022-04-29 09:49 | disposition expired | DRG 951 ==
LOC: CCU 11:13 → T4-A 14:40
PROVIDERS: ADMIT Family Medicine; ATTEND Family Medicine
DX: Z51.5 Encounter for palliative care (principal); J96.01 Acute respiratory failure with hypoxia; A41.9 Sepsis, unspecified organism; J44.1 Chronic obstructive pulmonary disease with (acute) exacerbation; Z20.822 Contact with and (suspected) exposure to COVID-19; I11.0 Hypertensive heart disease with heart failure; I25.10 Atherosclerotic heart disease of native coronary artery without angina pectoris; E78.5 Hyperlipidemia, unspecified; G89.29 Other chronic pain; M54.9 Dorsalgia, unspecified; E11.9 Type 2 diabetes mellitus without complications
CPT/HCPCS: J1200; J2060; J2270; J2920; J3490; J7620